=== PATIENT | male | born 1950 | race Caucasian/White ===

== ENCOUNTER 2020-11-21 15:14 | Inpatient (IN) | payer MEDICARE ==
[~2020-11-21] VITALS: Ht 188 cm; Wt 68.1 kg
[~2020-11-21 15:14] MED LIST: ALDACTONE25 MG PO; AMIODARONE HCL200 MG PO; ASPIRIN EC81 MG PO; Apixaban PO; DIGOXIN125 MCG PO; FAMOTIDINE20 MG/2 ML IV; FUROSEMIDE20 MG PO; TOPROL XL25 MG PO; Valsartan/Sacubitril PO
[2020-11-21] MEDS ORDERED: SODIUM CHLORIDE 0.9% 1000ML 1,000 ML IV ONE (16:45)
[2020-11-21] MEDS ORDERED: PANTOPRAZOLE SO40 MG PO (16:51)
[2020-11-21] MEDS ORDERED: METOPROLOL SUCC25 MG PO (16:51)
[2020-11-21] MEDS ORDERED: SERTRALINE HCL50 MG PO (16:51)
[2020-11-21] MEDS ORDERED: ELIQUIS5 MG PO (16:53)
[2020-11-21] MEDS ORDERED: ENTRESTO 24 MG1 EACH PO (16:53)
[2020-11-21] MEDS ORDERED: LEVOTHYROXINE50 MCG PO (16:53)
[2020-11-21] MEDS ORDERED: FUROSEMIDE40 MG PO (16:53)
[2020-11-21] MEDS ORDERED: SODIUM CHLORIDE 0.9% 1000ML 1,000 ML ONE (16:54)
[2020-11-21 16:57] LABS: BASOPHILS # (AUTO) 0.1 (0.0-0.1); BASOPHILS % 0.4 % (0.0-1.0); EOSINOPHILS # (AUTO) 0.1 (0.0-0.4); EOSINOPHILS % 0.2 % (0.0-6.0); HEMATOCRIT 34.8 % (38.2-49.6); HEMOGLOBIN 11.4 g/dL (14.0-18.0); LYMPHOCYTES # (AUTO) 1.6 (1.0-3.2); LYMPHOCYTES % 7.6 % (18.0-39.1); MEAN CORPUSCULAR HEMOGLOBIN 28.6 pg (28-32); MEAN CORPUSCULAR HGB CONC 32.8 g/dL (31-35); MEAN CORPUSCULAR VOLUME 87.4 fL (81-99); MONOCYTES # (AUTO) 1.5 (0.2-0.8); MONOCYTES % 7.2 % (4.4-11.3); NEUTROPHILS # (AUTO) 17.9 (2.1-6.9); NEUTROPHILS % 83.3 % (38.7-80.0); PLATELET COUNT 517 x10e3/uL (140-360); RED BLOOD COUNT 3.98 x10e6/uL (4.3-5.7); RED CELL DISTRIBUTION WIDTH 14.9 % (11.7-14.4)
[2020-11-21 17:17] LABS: ALBUMIN 2.1 g/dL (3.5-5.0); ALBUMIN/GLOBULIN RATIO 0.4 (0.8-2.0); ANION GAP 17.1 mmol/L (8-16); CREATININE, SERUM 1.4 mg/dL (0.72-1.25); POTASSIUM 4.1 mmol/L (3.5-5.1)
[2020-11-21] MEDS ORDERED: CEFEPIME 2 GM in SODIUM CHLORIDE 0.9% 100 ML IV SCH (17:30)
[2020-11-21] MEDS: SODIUM CHLORIDE 0.9% 1000ML 1,000 ML IV SCH (17:40)
[2020-11-21] MEDS: CEFEPIME 1 GM in SODIUM CHLORIDE 0.9% 50ML 50 ML IV SCH (17:43)
[2020-11-21] MEDS ORDERED: CEFEPIME HCL 1 GM VIAL ONE (17:48)
[2020-11-21] MEDS ORDERED: SODIUM CHLORIDE 0.9% 50ML 50 ML ONE (17:48)
[2020-11-21] MEDS ORDERED: SODIUM CHLORIDE FLUSH 10 ML SYR INJ PRN (18:00)
[2020-11-21] MEDS ORDERED: ACETAMINOPHEN 325 MG TAB PO PRN (18:00)
[2020-11-21] MEDS: VANCOMYCIN 1GM/NS 250 ML 250 ML IV SCH (18:23)
[2020-11-21 18:33] LABS: CLARITY,URINE CLEAR (CLEAR); COLOR,URINE AMBER (YELLOW); KETONES,URINE NEGATIVE (NEGATIVE); LEUKOCYTE ESTERASE ,URINE NEGATIVE (NEGATIVE); NITRITE,URINE NEGATIVE (NEGATIVE); PROTEIN,URINE DIPSTICK NEGATIVE (NEGATIVE); URINE UROBILINOGEN 1 mg/dL (0.2 - 1)
[2020-11-21 18:44] LABS: BACTERIA,URINE FEW /HPF
[2020-11-21 22:30] VITALS: BP 99/53
[2020-11-22] VITALS (8 sets, daily range): BP systolic 88–99; BP diastolic 45–64
[2020-11-22] MEDS ORDERED: DIPHENHYDRAMINE HCL 25 MG CAP PO PRN (01:15)
[2020-11-22] MEDS ORDERED: POTASSIUM CHLORIDE 20 MEQ TAB CR PO PRN (01:15)
[2020-11-22] MEDS ORDERED: LIDOCAINE 4% PATCH TP PRN (01:15)
[2020-11-22] MEDS ORDERED: HYDRALAZINE HCL 20 MG/ML VIAL IV PRN (01:15)
[2020-11-22] MEDS ORDERED: HYDROCODONE/APAP 5MG-325MG TAB PO PRN (01:15)
[2020-11-22] MEDS ORDERED: ONDANSETRON HCL INJ 2MG/ML 2ML 2 MG/ML VIAL IV PRN (01:15)
[2020-11-22] MEDS ORDERED: DEXTROSE 50% SYRINGE 50 ML IV PRN (01:15)
[2020-11-22] MEDS ORDERED: DOCUSATE SODIUM 100 MG CAP PO PRN (01:15)
[2020-11-22] MEDS: CEFEPIME 1 GM in SODIUM CHLORIDE 0.9% 50ML 50 ML IV SCH ×3 (01:30→16:52)
[2020-11-22] MEDS: SODIUM CHLORIDE 0.9% 1000ML 1,000 ML IV SCH (04:25)
[2020-11-22] MEDS: VANCOMYCIN 1GM/NS 250 ML 250 ML IV SCH ×2 (06:21→18:42)
[2020-11-22 06:31] LABS: BASOPHILS # (AUTO) 0.1 (0.0-0.1); BASOPHILS % 0.5 % (0.0-1.0); EOSINOPHILS # (AUTO) 0.1 (0.0-0.4); EOSINOPHILS % 0.3 % (0.0-6.0); HEMATOCRIT 35.7 % (38.2-49.6); HEMOGLOBIN 11.9 g/dL (14.0-18.0); LYMPHOCYTES # (AUTO) 1.3 (1.0-3.2); LYMPHOCYTES % 7.7 % (18.0-39.1); MEAN CORPUSCULAR HEMOGLOBIN 30.1 pg (28-32); MEAN CORPUSCULAR HGB CONC 33.3 g/dL (31-35); MEAN CORPUSCULAR VOLUME 90.4 fL (81-99); MONOCYTES # (AUTO) 1.2 (0.2-0.8); MONOCYTES % 6.9 % (4.4-11.3); NEUTROPHILS # (AUTO) 14.4 (2.1-6.9); NEUTROPHILS % 83.1 % (38.7-80.0); PLATELET COUNT 278 x10e3/uL (140-360); RED BLOOD COUNT 3.95 x10e6/uL (4.3-5.7); RED CELL DISTRIBUTION WIDTH 15.4 % (11.7-14.4)
[2020-11-22 06:53] LABS: ALANINE AMINOTRANSFERASE 10 IU/L (0-55); ALBUMIN 1.6 g/dL (3.5-5.0); ALBUMIN/GLOBULIN RATIO 0.4 (0.8-2.0); ALKALINE PHOSPHATASE 109 IU/L (40-150); ANION GAP 13.9 mmol/L (8-16); BLOOD UREA NITROGEN 15 mg/dL (7-26); BUN/CREATININE RATIO 16 (6-25); CALCIUM 7.4 mg/dL (8.4-10.2); CARBON DIOXIDE 20 mmol/L (22-29); CHLORIDE 103 mmol/L (98-107); CREATININE, SERUM 0.93 mg/dL (0.72-1.25); EST GLOMERULAR FILTRATION RATE > 60 ML/MIN (60-); GLUCOSE 76 mg/dL (74-118); POTASSIUM 3.9 mmol/L (3.5-5.1); SODIUM 133 mmol/L (136-145)
[2020-11-22] MEDS: PANTOPRAZOLE SOD 40 MG TABEC PO SCH (09:15)
[2020-11-22] MEDS: APIXABAN 5 MG TABLET PO SCH (16:52)
[2020-11-22] MEDS: AMIODARONE HCL 200 MG TAB PO SCH (16:52)
[2020-11-22] MEDS ORDERED: ENOXAPARIN SOD INJ 40 MG/0.4 ML SYR SC SCH (17:00)
[2020-11-22] MEDS ORDERED: VALSARTAN/SACUBITRIL 24MG/26MG 1 EA TAB PO SCH (17:00)
[2020-11-22] MEDS: MELATONIN 5 MG TABLET PO PRN (21:05)
[2020-11-23] VITALS (8 sets, daily range): BP systolic 86–107; BP diastolic 46–64
[2020-11-23] MEDS: CEFEPIME 1 GM in SODIUM CHLORIDE 0.9% 50ML 50 ML IV SCH ×3 (02:07→17:27)
[2020-11-23 05:21] LABS: CHOL/HDL RATIO 3.2 (3.9-4.7); MAGNESIUM 1.9 MG/DL (1.3-2.1); PHOSPHORUS 2.8 MG/DL (2.3-4.7)
[2020-11-23] MEDS: VANCOMYCIN 1GM/NS 250 ML 250 ML IV SCH ×2 (05:39→18:28)
[2020-11-23] MEDS: LEVOTHYROXINE SODIUM 50 MCG TAB PO SCH (05:39)
[2020-11-23 05:42] LABS: THYROID STIMULATING HORMONE 32.54 uIU/mL (0.350-4.940)
[2020-11-23] MEDS ORDERED: PANTOPRAZOLE SOD 40 MG TABEC PO SCH (07:30)
[2020-11-23] MEDS: PANTOPRAZOLE SOD 40 MG TABEC PO SCH (09:09)
[2020-11-23] MEDS: FUROSEMIDE 20 MG TAB PO SCH (09:09)
[2020-11-23] MEDS: APIXABAN 5 MG TABLET PO SCH ×2 (09:09→17:27)
[2020-11-23] MEDS: AMIODARONE HCL 200 MG TAB PO SCH (09:09)
[2020-11-23] MEDS: SERTRALINE HCL 50 MG TAB PO SCH (09:10)
[2020-11-23] MEDS: METOPROLOL SUCCINATE 25 MG TAB XL PO SCH (09:10)
[2020-11-23] MEDS: BACITRACIN ZINC 15 GM OINT TOP SCH (09:10)
[2020-11-23] MEDS: BALSAM PERU/CASTOR OIL 60 GM OINT...G. TP SCH (09:11)
[2020-11-23] MEDS ORDERED: LIDOCAINE HCL 1% LOCAL INJ 20 ML VIAL INJ ONE (10:45)
[2020-11-24] VITALS (8 sets, daily range): BP systolic 91–112; BP diastolic 51–67
[2020-11-24] MEDS: CEFEPIME 1 GM in SODIUM CHLORIDE 0.9% 50ML 50 ML IV SCH (02:35)
[2020-11-24 06:13] LABS: BASOPHILS # (AUTO) 0.1 (0.0-0.1); BASOPHILS % 0.9 % (0.0-1.0); EOSINOPHILS # (AUTO) 0.2 (0.0-0.4); EOSINOPHILS % 1.6 % (0.0-6.0); HEMATOCRIT 37.8 % (38.2-49.6); HEMOGLOBIN 11.9 g/dL (14.0-18.0); LYMPHOCYTES # (AUTO) 1.3 (1.0-3.2); LYMPHOCYTES % 11.3 % (18.0-39.1); MEAN CORPUSCULAR HEMOGLOBIN 28.4 pg (28-32); MEAN CORPUSCULAR HGB CONC 31.5 g/dL (31-35); MEAN CORPUSCULAR VOLUME 90.2 fL (81-99); MONOCYTES % 8.4 % (4.4-11.3); NEUTROPHILS # (AUTO) 8.8 (2.1-6.9); NEUTROPHILS % 75.2 % (38.7-80.0); PLATELET COUNT 463 x10e3/uL (140-360); RED BLOOD COUNT 4.19 x10e6/uL (4.3-5.7)
[2020-11-24] MEDS: VANCOMYCIN 1GM/NS 250 ML 250 ML IV SCH ×2 (06:30→19:30)
[2020-11-24 06:42] LABS: ANION GAP 8.3 mmol/L (8-16); BLOOD UREA NITROGEN 11 mg/dL (7-26); BUN/CREATININE RATIO 14 (6-25); CALCIUM 7.2 mg/dL (8.4-10.2); CARBON DIOXIDE 26 mmol/L (22-29); CHLORIDE 103 mmol/L (98-107); CREATININE, SERUM 0.78 mg/dL (0.72-1.25); EST GLOMERULAR FILTRATION RATE > 60 ML/MIN (60-); GLUCOSE 85 mg/dL (74-118); POTASSIUM 3.3 mmol/L (3.5-5.1); SODIUM 134 mmol/L (136-145)
[2020-11-24] MEDS: LEVOTHYROXINE SODIUM 50 MCG TAB PO SCH (06:55)
[2020-11-24] MEDS: FUROSEMIDE 20 MG TAB PO SCH (10:15)
[2020-11-24] MEDS: PANTOPRAZOLE SOD 40 MG TABEC PO SCH (10:15)
[2020-11-24] MEDS: APIXABAN 5 MG TABLET PO SCH ×2 (10:15→17:00)
[2020-11-24] MEDS: BACITRACIN ZINC 15 GM OINT TOP SCH (10:16)
[2020-11-24] MEDS: BALSAM PERU/CASTOR OIL 60 GM OINT...G. TP SCH (10:16)
[2020-11-24] MEDS: METOPROLOL SUCCINATE 25 MG TAB XL PO SCH (10:16)
[2020-11-24] MEDS: SERTRALINE HCL 50 MG TAB PO SCH (10:16)
[2020-11-25] VITALS: BP 104/58
[2020-11-25 04:00] VITALS: BP 106/59
[2020-11-25] MEDS: LEVOTHYROXINE SODIUM 75 MCG TAB PO SCH (06:43)
[2020-11-25] MEDS: PANTOPRAZOLE SOD 40 MG TABEC PO SCH (07:30)
[2020-11-25 09:00] VITALS: BP 106/59
[2020-11-25] MEDS: APIXABAN 5 MG TABLET PO SCH ×2 (09:14→17:08)
[2020-11-25] MEDS: FUROSEMIDE 20 MG TAB PO SCH (09:14)
[2020-11-25] MEDS: METOPROLOL SUCCINATE 25 MG TAB XL PO SCH (09:16)
[2020-11-25] MEDS: BALSAM PERU/CASTOR OIL 60 GM OINT...G. TP SCH (09:16)
[2020-11-25] MEDS: SERTRALINE HCL 50 MG TAB PO SCH (09:16)
[2020-11-25] MEDS: BACITRACIN ZINC 15 GM OINT TOP SCH (09:16)
[2020-11-25 13:03] VITALS: BP 120/60
[2020-11-25] MEDS: VANCOMYCIN 1GM/NS 250 ML 250 ML IV SCH (17:08)
[2020-11-25 17:15] VITALS: BP 115/77
[2020-11-25 20:00] VITALS: BP 104/62
[2020-11-26] VITALS (8 sets, daily range): BP systolic 91–109; BP diastolic 52–61
[2020-11-26 05:16] LABS: BASOPHILS # (AUTO) 0.1 (0.0-0.1); BASOPHILS % 0.7 % (0.0-1.0); EOSINOPHILS # (AUTO) 0.3 (0.0-0.4); EOSINOPHILS % 1.8 % (0.0-6.0); HEMATOCRIT 35.9 % (38.2-49.6); HEMOGLOBIN 11.7 g/dL (14.0-18.0); LYMPHOCYTES # (AUTO) 1.2 (1.0-3.2); LYMPHOCYTES % 7.7 % (18.0-39.1); MEAN CORPUSCULAR HEMOGLOBIN 28.1 pg (28-32); MEAN CORPUSCULAR HGB CONC 32.6 g/dL (31-35); MONOCYTES # (AUTO) 1.3 (0.2-0.8); MONOCYTES % 8.1 % (4.4-11.3); NEUTROPHILS # (AUTO) 12.6 (2.1-6.9); NEUTROPHILS % 79.3 % (38.7-80.0); PLATELET COUNT 472 x10e3/uL (140-360); RED BLOOD COUNT 4.17 x10e6/uL (4.3-5.7); RED CELL DISTRIBUTION WIDTH 14.6 % (11.7-14.4)
[2020-11-26 05:17] LABS: MEAN CORPUSCULAR VOLUME 86.1 fL (81-99)
[2020-11-26 05:39] LABS: ANION GAP 8.7 mmol/L (8-16); BLOOD UREA NITROGEN 9 mg/dL (7-26); BUN/CREATININE RATIO 14 (6-25); CALCIUM 7.3 mg/dL (8.4-10.2); CARBON DIOXIDE 29 mmol/L (22-29); CHLORIDE 98 mmol/L (98-107); CREATININE, SERUM 0.66 mg/dL (0.72-1.25); EST GLOMERULAR FILTRATION RATE > 60 ML/MIN (60-); GLUCOSE 93 mg/dL (74-118); POTASSIUM 3.7 mmol/L (3.5-5.1); SODIUM 132 mmol/L (136-145)
[2020-11-26] MEDS: LEVOTHYROXINE SODIUM 75 MCG TAB PO SCH (06:35)
[2020-11-26] MEDS ORDERED: ONDANSETRON HCL 4 MG ORAL DISINTEGRATING TAB PO PRN (08:15)
[2020-11-26] MEDS: APIXABAN 5 MG TABLET PO SCH ×2 (08:26→17:55)
[2020-11-26] MEDS: METOPROLOL SUCCINATE 25 MG TAB XL PO SCH (08:26)
[2020-11-26] MEDS: PANTOPRAZOLE SOD 40 MG TABEC PO SCH (08:26)
[2020-11-26] MEDS: BACITRACIN ZINC 15 GM OINT TOP SCH (08:26)
[2020-11-26] MEDS: SERTRALINE HCL 50 MG TAB PO SCH (08:26)
[2020-11-26] MEDS: FUROSEMIDE 20 MG TAB PO SCH (08:26)
[2020-11-26] MEDS: BALSAM PERU/CASTOR OIL 60 GM OINT...G. TP SCH (08:27)
[2020-11-26] MEDS: ACETAMINOPHEN 325 MG TAB PO PRN (08:28)
[2020-11-26] MEDS: VANCOMYCIN 1GM/NS 250 ML 250 ML IV SCH (19:02)
[2020-11-27] VITALS (7 sets, daily range): BP systolic 93–106; BP diastolic 52–58
[2020-11-27] MEDS: LEVOTHYROXINE SODIUM 75 MCG TAB PO SCH (05:43)
[2020-11-27] MEDS: BALSAM PERU/CASTOR OIL 60 GM OINT...G. TP SCH (09:00)
[2020-11-27] MEDS: SERTRALINE HCL 50 MG TAB PO SCH (09:20)
[2020-11-27] MEDS: FUROSEMIDE 20 MG TAB PO SCH (09:20)
[2020-11-27] MEDS: PANTOPRAZOLE SOD 40 MG TABEC PO SCH (09:20)
[2020-11-27] MEDS: METOPROLOL SUCCINATE 25 MG TAB XL PO SCH (09:20)
[2020-11-27] MEDS: ENOXAPARIN SOD INJ 40 MG/0.4 ML SYR SC SCH (10:22)
[2020-11-27] MEDS: Vancomycin IV 1 GM in SODIUM CHLORIDE 0.9% 250ML 250 ML IV SCH (15:15)
[2020-11-27 15:25] LABS: ABG PH 7.46 (7.35-7.45)
[2020-11-27 15:26] LABS: ABG HCO3 31 mmol/L (22-26); ABG PCO2 43 mmHg (35-45); ABG PO2 80 mmHg (80-105); ABG TCO2 32
[2020-11-27 15:57] LABS: INR 1.49; PROTHROMBIN TIME 18.7 seconds (11.9-14.5)
[2020-11-27] MEDS: PIPERACILLIN/TAZOBACTAM 4.5 GM in SODIUM CHLORIDE 0.9% 100 ML IV SCH (19:03)
[2020-11-28] VITALS (15 sets, daily range): BP systolic 67–119; BP diastolic 40–84
[2020-11-28] MEDS: SODIUM CHLORIDE 0.9% 1000ML 1,000 ML IV SCH ×2 (00:56→10:00)
[2020-11-28] MEDS: PIPERACILLIN/TAZOBACTAM 4.5 GM in SODIUM CHLORIDE 0.9% 100 ML IV SCH ×3 (01:04→17:30)
[2020-11-28] MEDS: LEVOTHYROXINE SODIUM 75 MCG TAB PO SCH (05:07)
[2020-11-28] MEDS: PANTOPRAZOLE SOD 40 MG TABEC PO SCH (08:41)
[2020-11-28] MEDS: ENOXAPARIN SOD INJ 40 MG/0.4 ML SYR SC SCH (09:00)
[2020-11-28] MEDS: FUROSEMIDE 20 MG TAB PO SCH (09:42)
[2020-11-28] MEDS: SERTRALINE HCL 50 MG TAB PO SCH (09:43)
[2020-11-28] MEDS: METOPROLOL SUCCINATE 25 MG TAB XL PO SCH (09:43)
[2020-11-28] MEDS: BALSAM PERU/CASTOR OIL 60 GM OINT...G. TP SCH (09:43)
[2020-11-28] MEDS: Vancomycin IV 1 GM in SODIUM CHLORIDE 0.9% 250ML 250 ML IV SCH (12:42)
[2020-11-28 16:00] LABS: BODY FLUID TYPE PLEURAL
[2020-11-28] MEDS ORDERED: SODIUM CHLORIDE 0.9% 1000ML 1,000 ML IV ONE (16:30)
[2020-11-28 16:35] LABS: BASOPHILS # (AUTO) 0.1 (0.0-0.1); BASOPHILS % 0.3 % (0.0-1.0); EOSINOPHILS % 0.1 % (0.0-6.0); HEMATOCRIT 33.1 % (38.2-49.6); HEMOGLOBIN 10.8 g/dL (14.0-18.0); LYMPHOCYTES # (AUTO) 0.8 (1.0-3.2); MEAN CORPUSCULAR HEMOGLOBIN 28.3 pg (28-32); MEAN CORPUSCULAR HGB CONC 32.6 g/dL (31-35); MEAN CORPUSCULAR VOLUME 86.6 fL (81-99); MONOCYTES # (AUTO) 1.4 (0.2-0.8); MONOCYTES % 5.2 % (4.4-11.3); NEUTROPHILS # (AUTO) 23.9 (2.1-6.9); NEUTROPHILS % 89.3 % (38.7-80.0); PLATELET COUNT 435 x10e3/uL (140-360); RED BLOOD COUNT 3.82 x10e6/uL (4.3-5.7); RED CELL DISTRIBUTION WIDTH 14.9 % (11.7-14.4)
[2020-11-28 16:38] LABS: BODY FLUID APPEARANCE TURBID; BODY FLUID COLOR STRAW
[2020-11-28 16:50] LABS: RBC,BODY FLUID 2000 cells/uL; WBC,BODY FLUID 1336 cells/uL
[2020-11-28 17:25] LABS: ABG HCO3 29 mmol/L (22-26); ABG PCO2 48 mmHg (35-45); ABG PH 7.39 (7.35-7.45); ABG PO2 177 mmHg (80-105); ABG TCO2 31
[2020-11-28] MEDS ORDERED: MIDODRINE HCL 5 MG TABLET PO ONE (18:15)
[2020-11-28 19:21] LABS: LYMPHOCYTES,BODY FLUID 49 %; MONO/MACROPHG,BODY FLUID 27 %; NEUTROPHILS,BODY FLUID 23 %; OTHER CELLS,BODY FLUID 1 %
[2020-11-28] MEDS ORDERED: FUROSEMIDE INJ 10 MG/ML 2 ML VIAL IV ONE (20:30)
[2020-11-28] MEDS ORDERED: NOREPINEPHRINE 8 MG/D5W 250 ML 250 ML ONE (22:19)
[2020-11-28] MEDS: NOREPINEPHRINE INJ 4MG/4ML 8 MG in DEXTROSE 5% 250ML 250 ML IV PRN (22:27)
[2020-11-29] VITALS (59 sets, daily range): BP systolic 50–118; BP diastolic 13–84
[2020-11-29] MEDS ORDERED: SODIUM CHLORIDE 0.9% 100 ML 100 ML ONE (00:39)
[2020-11-29] MEDS: PIPERACILLIN/TAZOBACTAM 4.5 GM in SODIUM CHLORIDE 0.9% 100 ML IV SCH ×2 (01:00→09:00)
[2020-11-29 05:14] LABS: BASOPHILS # (AUTO) 0.2 (0.0-0.1); BASOPHILS % 0.4 % (0.0-1.0); HEMATOCRIT 38.5 % (38.2-49.6); HEMOGLOBIN 12.5 g/dL (14.0-18.0); LYMPHOCYTES # (AUTO) 1.5 (1.0-3.2); LYMPHOCYTES % 3.8 % (18.0-39.1); MEAN CORPUSCULAR HEMOGLOBIN 28.4 pg (28-32); MEAN CORPUSCULAR HGB CONC 32.5 g/dL (31-35); MEAN CORPUSCULAR VOLUME 87.5 fL (81-99); MONOCYTES # (AUTO) 1.9 (0.2-0.8); MONOCYTES % 4.7 % (4.4-11.3); NEUTROPHILS # (AUTO) 34.6 (2.1-6.9); NEUTROPHILS % 87.8 % (38.7-80.0); PLATELET COUNT 663 x10e3/uL (140-360); RED CELL DISTRIBUTION WIDTH 14.9 % (11.7-14.4)
[2020-11-29 05:37] LABS: BLOOD UREA NITROGEN 17 mg/dL (7-26); BUN/CREATININE RATIO 18 (6-25); CALCIUM 7.9 mg/dL (8.4-10.2); CARBON DIOXIDE 26 mmol/L (22-29); CHLORIDE 100 mmol/L (98-107); CREATININE, SERUM 0.92 mg/dL (0.72-1.25); EST GLOMERULAR FILTRATION RATE > 60 ML/MIN (60-); GLUCOSE 148 mg/dL (74-118); SODIUM 137 mmol/L (136-145)
[2020-11-29] MEDS ORDERED: NOREPINEPHRINE 8 MG/D5W 250 ML 250 ML ONE (05:50)
[2020-11-29] MEDS: LEVOTHYROXINE SODIUM 75 MCG TAB PO SCH (06:00)
[2020-11-29] MEDS: PANTOPRAZOLE SOD 40 MG TABEC PO SCH (07:30)
[2020-11-29 07:59] LABS: LYMPHOCYTES % (MANUAL) 5 % (19-48); MONOCYTES % (MANUAL) 2 % (3.4-9.0); MYELOCYTES % (MANUAL) 1 % (0-0); NEUTROPHILS % (MANUAL) 92 % (40-74); PLATELET ESTIMATE MODERATELY INCREASED; RBC MORPHOLOGY COMMENT NORMAL
[2020-11-29 08:00] LABS: PLATELET MORPHOLOGY COMMENT FEW EDTA CLUMPING
[2020-11-29] MEDS: MIDODRINE HCL 5 MG TABLET PO SCH ×3 (08:00→16:00)
[2020-11-29 08:01] LABS: GIANT PLATELETS FEW; LARGE PLATELETS FEW
[2020-11-29] MEDS: NOREPINEPHRINE INJ 4MG/4ML 8 MG in DEXTROSE 5% 250ML 250 ML IV PRN ×2 (08:35→22:12)
[2020-11-29] MEDS: SERTRALINE HCL 50 MG TAB PO SCH (08:56)
[2020-11-29] MEDS: METOPROLOL SUCCINATE 25 MG TAB XL PO SCH (08:56)
[2020-11-29] MEDS: FUROSEMIDE 20 MG TAB PO SCH (08:56)
[2020-11-29] MEDS ORDERED: FUROSEMIDE INJ 10 MG/ML 2 ML VIAL IV ONE ×2 (09:00→14:15)
[2020-11-29 09:10] LABS: ABG HCO3 30 mmol/L (22-26); ABG PCO2 52 mmHg (35-45); ABG PH 7.37 (7.35-7.45); ABG PO2 214 mmHg (80-105); ABG TCO2 31
[2020-11-29] MEDS: BALSAM PERU/CASTOR OIL 60 GM OINT...G. TP SCH (09:46)
[2020-11-29] MEDS ORDERED: ASPIRIN 81 MG CHEW TAB PO ONE (10:15)
[2020-11-29 10:59] LABS: IRON 12 ug/dL (65-175); TRANSFERRIN < 70 mg/dL (174-364)
[2020-11-29] MEDS: ALBUTEROL SULF 0.083% NEB SOLN 3 ML NEB NEB SCH ×3 (11:20→18:50)
[2020-11-29 11:38] LABS: CREATINE KINASE MB 4.5 ng/mL (0-5.0)
[2020-11-29 12:16] LABS: ALBUMIN 1.5 g/dL (3.5-5.0); BILIRUBIN,DIRECT 0.4 mg/dL (0.0-0.5)
[2020-11-29] MEDS: CEFEPIME 1 GM in SODIUM CHLORIDE 0.9% 50ML 50 ML IV SCH ×2 (13:09→20:31)
[2020-11-29] MEDS: Vancomycin IV 1 GM in SODIUM CHLORIDE 0.9% 250ML 250 ML IV SCH (13:09)
[2020-11-29] MEDS ORDERED: DIATRIZOATE MEGL/DIATRIZOA SOD 30 ML BTL PO ONE (13:37)
[2020-11-29] MEDS ORDERED: IOPAMIDOL 370 MG/ML 200 ML INFUS..BTL INJ ONE (13:37)
[2020-11-29] MEDS ORDERED: SODIUM CHLORIDE 0.9% 50ML 50 ML ONE (13:37)
[2020-11-29] MEDS: METRONIDAZOLE 500MG/NS 100ML 100 ML IV SCH ×2 (14:08→21:19)
[2020-11-29] MEDS ORDERED: CENTRAL TPN FORMULA 1 BAG IV SCH (20:00)
[2020-11-30] VITALS (25 sets, daily range): BP systolic 80–109; BP diastolic 52–76
[2020-11-30] MEDS ORDERED: DEXMEDETOMIDINE 200MCG/NS 50ML 50 ML IV ONE (02:20)
[2020-11-30] MEDS: DEXMEDETOMIDINE 200MCG/NS 50ML 50 ML IV SCH ×3 (02:30→07:09)
[2020-11-30] MEDS: ALBUTEROL SULF 0.083% NEB SOLN 3 ML NEB NEB SCH ×4 (02:50→19:15)
[2020-11-30] MEDS: CEFEPIME 1 GM in SODIUM CHLORIDE 0.9% 50ML 50 ML IV SCH ×3 (05:41→22:07)
[2020-11-30 05:55] LABS: BASOPHILS # (AUTO) 0.1 (0.0-0.1); BASOPHILS % 0.3 % (0.0-1.0); LYMPHOCYTES # (AUTO) 1.4 (1.0-3.2); LYMPHOCYTES % 4.2 % (18.0-39.1); MEAN CORPUSCULAR HGB CONC 32.4 g/dL (31-35); MEAN CORPUSCULAR VOLUME 86.2 fL (81-99); MONOCYTES % 3.2 % (4.4-11.3); NEUTROPHILS # (AUTO) 28.9 (2.1-6.9); PLATELET COUNT 554 x10e3/uL (140-360); RED BLOOD COUNT 4.29 x10e6/uL (4.3-5.7); RED CELL DISTRIBUTION WIDTH 14.6 % (11.7-14.4)
[2020-11-30] MEDS: LEVOTHYROXINE SODIUM 75 MCG TAB PO SCH (06:00)
[2020-11-30 06:18] LABS: ALANINE AMINOTRANSFERASE 10 IU/L (0-55); ALBUMIN 1.2 g/dL (3.5-5.0); ALBUMIN/GLOBULIN RATIO 0.3 (0.8-2.0); ALKALINE PHOSPHATASE 103 IU/L (40-150); ANION GAP 12.5 mmol/L (8-16); BLOOD UREA NITROGEN 22 mg/dL (7-26); BUN/CREATININE RATIO 27 (6-25); CALCIUM 7.6 mg/dL (8.4-10.2); CARBON DIOXIDE 29 mmol/L (22-29); CHLORIDE 99 mmol/L (98-107); CREATININE, SERUM 0.83 mg/dL (0.72-1.25); EST GLOMERULAR FILTRATION RATE > 60 ML/MIN (60-); GLUCOSE 294 mg/dL (74-118); POTASSIUM 3.5 mmol/L (3.5-5.1); SODIUM 137 mmol/L (136-145)
[2020-11-30] MEDS: NOREPINEPHRINE INJ 4MG/4ML 8 MG in DEXTROSE 5% 250ML 250 ML IV PRN (06:20)
[2020-11-30] MEDS ORDERED: NOREPINEPHRINE 8 MG/D5W 250 ML 250 ML ONE (06:23)
[2020-11-30] MEDS: ALBUTEROL/IPRATROPIUM 3 ML NEB NEB PRN ×2 (06:30→15:00)
[2020-11-30] MEDS: METRONIDAZOLE 500MG/NS 100ML 100 ML IV SCH ×3 (06:35→22:07)
[2020-11-30 06:59] LABS: ABG HCO3 30 mmol/L (22-26); ABG PCO2 48 mmHg (35-45); ABG PH 7.41 (7.35-7.45); ABG PO2 77 mmHg (80-105); ABG TCO2 32
[2020-11-30] MEDS: MIDODRINE HCL 5 MG TABLET PO SCH ×3 (08:00→15:10)
[2020-11-30 08:28] LABS: LYMPHOCYTES % (MANUAL) 3 % (19-48); MONOCYTES % (MANUAL) 2 % (3.4-9.0); NEUTROPHILS % (MANUAL) 95 % (40-74)
[2020-11-30 08:29] LABS: PLATELET ESTIMATE MODERATELY INCREASED; RBC MORPHOLOGY COMMENT NORMAL
[2020-11-30 08:30] LABS: GIANT PLATELETS FEW; PLATELET CLUMPS FEW; PLATELET MORPHOLOGY COMMENT FEW LARGE
[2020-11-30] MEDS ORDERED: FENTANYL 2000MCG/NS 250 250 ML ONE (08:38)
[2020-11-30] MEDS: FENTANYL 2000MCG/NS 250 250 ML IV SCH ×2 (08:45→21:16)
[2020-11-30] MEDS: SERTRALINE HCL 50 MG TAB PO SCH (09:00)
[2020-11-30] MEDS: METOPROLOL SUCCINATE 25 MG TAB XL PO SCH (09:00)
[2020-11-30] MEDS: FUROSEMIDE 20 MG TAB PO SCH (09:00)
[2020-11-30] MEDS: VASOPRESSIN 60 UNIT in DEXTROSE 5% 50ML 57 ML IV SCH ×2 (09:10→21:14)
[2020-11-30] MEDS: BALSAM PERU/CASTOR OIL 60 GM OINT...G. TP SCH (09:29)
[2020-11-30] MEDS ORDERED: SODIUM CHLORIDE 0.9% 1000ML 2,000 ML ONE (09:34)
[2020-11-30] MEDS ORDERED: SODIUM CHLORIDE 0.9% 1000ML 1,000 ML IV SCH (09:45)
[2020-11-30 10:33] LABS: ABG HCO3 28 mmol/L (22-26); ABG PCO2 53 mmHg (35-45); ABG PH 7.32 (7.35-7.45); ABG PO2 113 mmHg (80-105); ABG TCO2 29
[2020-11-30] MEDS ORDERED: VECURONIUM BROMIDE FOR INJ 20 MG VIAL IV STA (14:00)
[2020-11-30] MEDS ORDERED: VECURONIUM BROMIDE FOR INJ 20 MG VIAL ONE (14:09)
[2020-11-30] MEDS: MIDAZOLAM HCL 5MG/ML 10ML VIAL 100 ML IV PRN ×2 (14:25→22:44)
[2020-11-30] MEDS: Vancomycin IV 1 GM in SODIUM CHLORIDE 0.9% 250ML 250 ML IV SCH (14:30)
[2020-11-30] MEDS ORDERED: DIGOXIN INJ 0.25 MG/ML 2 ML AMP IV ONE (16:15)
[2020-11-30 17:17] LABS: ABG HCO3 28 mmol/L (22-26); ABG PCO2 64 mmHg (35-45); ABG PH 7.25 (7.35-7.45); ABG PO2 134 mmHg (80-105); ABG TCO2 30
[2020-11-30] MEDS ORDERED: ETOMIDATE 2 MG/ML 10 ML INJ IV ONE (18:14)
[2020-11-30] MEDS ORDERED: CENTRAL TPN FORMULA 1 BAG IV SCH (20:00)
[2020-11-30] MEDS: AMIODARONE HCL 200 MG TAB PO SCH (22:43)
[2020-12-01] VITALS (26 sets, daily range): BP systolic 81–110; BP diastolic 51–86
[2020-12-01] MEDS: ALBUTEROL SULF 0.083% NEB SOLN 3 ML NEB NEB SCH ×4 (00:15→19:12)
[2020-12-01 04:47] LABS: BASOPHILS # (AUTO) 0.2 (0.0-0.1); BASOPHILS % 0.5 % (0.0-1.0); EOSINOPHILS # (AUTO) 0.2 (0.0-0.4); EOSINOPHILS % 0.5 % (0.0-6.0); HEMATOCRIT 35.8 % (38.2-49.6); HEMOGLOBIN 11.2 g/dL (14.0-18.0); LYMPHOCYTES # (AUTO) 1.3 (1.0-3.2); LYMPHOCYTES % 4.2 % (18.0-39.1); MEAN CORPUSCULAR HEMOGLOBIN 27.9 pg (28-32); MEAN CORPUSCULAR HGB CONC 31.3 g/dL (31-35); MEAN CORPUSCULAR VOLUME 89.1 fL (81-99); MONOCYTES # (AUTO) 0.9 (0.2-0.8); MONOCYTES % 2.9 % (4.4-11.3); NEUTROPHILS % 89.4 % (38.7-80.0); PLATELET COUNT 338 x10e3/uL (140-360); RED BLOOD COUNT 4.02 x10e6/uL (4.3-5.7); RED CELL DISTRIBUTION WIDTH 15.2 % (11.7-14.4)
[2020-12-01 05:06] LABS: ALANINE AMINOTRANSFERASE 6 IU/L (0-55); ALBUMIN 1.1 g/dL (3.5-5.0); ALBUMIN/GLOBULIN RATIO 0.2 (0.8-2.0); ALKALINE PHOSPHATASE 87 IU/L (40-150); ANION GAP 9.9 mmol/L (8-16); BLOOD UREA NITROGEN 21 mg/dL (7-26); BUN/CREATININE RATIO 28 (6-25); CALCIUM 7.5 mg/dL (8.4-10.2); CARBON DIOXIDE 26 mmol/L (22-29); CHLORIDE 106 mmol/L (98-107); CREATININE, SERUM 0.74 mg/dL (0.72-1.25); EST GLOMERULAR FILTRATION RATE > 60 ML/MIN (60-); GLUCOSE 263 mg/dL (74-118); POTASSIUM 3.9 mmol/L (3.5-5.1); SODIUM 138 mmol/L (136-145)
[2020-12-01] MEDS: CEFEPIME 1 GM in SODIUM CHLORIDE 0.9% 50ML 50 ML IV SCH ×3 (05:35→21:40)
[2020-12-01] MEDS: METRONIDAZOLE 500MG/NS 100ML 100 ML IV SCH ×3 (05:35→22:00)
[2020-12-01] MEDS: LEVOTHYROXINE SODIUM 75 MCG TAB PO SCH (05:35)
[2020-12-01] MEDS: CISATRACURIUM BESYLATE 100 MG in SODIUM CHLORIDE 0.9% 100 ML 50 ML IV PRN (07:38)
[2020-12-01] MEDS: METOPROLOL SUCCINATE 25 MG TAB XL PO SCH (08:24)
[2020-12-01] MEDS: SERTRALINE HCL 50 MG TAB PO SCH (08:25)
[2020-12-01] MEDS ORDERED: DEXTROSE 50% SYRINGE 50 ML IV PRN (09:15)
[2020-12-01] MEDS: AMIODARONE HCL 200 MG TAB PO SCH ×2 (09:25→18:13)
[2020-12-01] MEDS: FUROSEMIDE 20 MG TAB PO SCH (09:25)
[2020-12-01] MEDS: BALSAM PERU/CASTOR OIL 60 GM OINT...G. TP SCH (09:25)
[2020-12-01 09:31] LABS: BAND NEUTROPHILS % (MANUAL) 2 %; LYMPHOCYTES % (MANUAL) 2 % (19-48); MONOCYTES % (MANUAL) 4 % (3.4-9.0); MYELOCYTES % (MANUAL) 1 % (0-0); NEUTROPHILS % (MANUAL) 91 % (40-74); PLATELET ESTIMATE ADEQUATE; PLATELET MORPHOLOGY COMMENT NORMAL; RBC MORPHOLOGY COMMENT NORMAL
[2020-12-01] MEDS: NOREPINEPHRINE 8 MG/D5W 250 ML 250 ML IV PRN (09:33)
[2020-12-01] MEDS: MIDAZOLAM HCL 5MG/ML 10ML VIAL 100 ML IV PRN ×2 (09:35→20:37)
[2020-12-01 10:29] LABS: IRON 8 ug/dL (65-175); TRANSFERRIN < 70 mg/dL (174-364)
[2020-12-01] MEDS: INSULIN LISPRO 100 UNIT/1 ML 3ML VIAL SQ SCH ×3 (12:14→21:00)
[2020-12-01] MEDS: Vancomycin IV 1 GM in SODIUM CHLORIDE 0.9% 250ML 250 ML IV SCH (13:45)
[2020-12-01] MEDS: VASOPRESSIN 60 UNIT in DEXTROSE 5% 50ML 57 ML IV SCH (13:49)
[2020-12-01] MEDS ORDERED: IOPAMIDOL 370 MG/ML 200 ML INFUS..BTL INJ ONE (14:28)
[2020-12-01] MEDS ORDERED: SODIUM CHLORIDE 0.9% 50ML 50 ML ONE (14:28)
[2020-12-01] MEDS: IRON SUCROSE 100 MG in SODIUM CHLORIDE 0.9% 100 ML 100 ML IV SCH (18:13)
[2020-12-01] MEDS: ENOXAPARIN INJ 80 MG/0.8 ML SYR SC SCH (21:00)
[2020-12-02 00:10] VITALS: BP 96/75
[2020-12-02 00:11] VITALS: BP 96/75
[2020-12-02] MEDS: ALBUTEROL SULF 0.083% NEB SOLN 3 ML NEB NEB SCH ×4 (01:00→18:49)
[2020-12-02] MEDS: CISATRACURIUM BESYLATE 100 MG in SODIUM CHLORIDE 0.9% 100 ML 50 ML IV PRN ×2 (01:22→18:48)
[2020-12-02] MEDS: VASOPRESSIN 60 UNIT in DEXTROSE 5% 50ML 57 ML IV SCH ×2 (01:23→13:30)
[2020-12-02] MEDS: FENTANYL 2000MCG/NS 250 250 ML IV SCH (01:25)
[2020-12-02] MEDS: CEFEPIME 1 GM in SODIUM CHLORIDE 0.9% 50ML 50 ML IV SCH ×3 (05:00→21:36)
[2020-12-02 05:06] LABS: BASOPHILS # (AUTO) 0.2 (0.0-0.1); BASOPHILS % 0.6 % (0.0-1.0); EOSINOPHILS # (AUTO) 0.3 (0.0-0.4); EOSINOPHILS % 1.3 % (0.0-6.0); HEMATOCRIT 33.2 % (38.2-49.6); HEMOGLOBIN 10.6 g/dL (14.0-18.0); LYMPHOCYTES # (AUTO) 2.2 (1.0-3.2); LYMPHOCYTES % 8.9 % (18.0-39.1); MEAN CORPUSCULAR HEMOGLOBIN 28.5 pg (28-32); MEAN CORPUSCULAR HGB CONC 31.9 g/dL (31-35); MEAN CORPUSCULAR VOLUME 89.2 fL (81-99); MONOCYTES # (AUTO) 0.8 (0.2-0.8); MONOCYTES % 3.3 % (4.4-11.3); NEUTROPHILS # (AUTO) 20.3 (2.1-6.9); NEUTROPHILS % 83.8 % (38.7-80.0); PLATELET COUNT 270 x10e3/uL (140-360); RED BLOOD COUNT 3.72 x10e6/uL (4.3-5.7); RED CELL DISTRIBUTION WIDTH 15.7 % (11.7-14.4)
[2020-12-02 05:26] LABS: ANION GAP 12.4 mmol/L (8-16); BLOOD UREA NITROGEN 25 mg/dL (7-26); BUN/CREATININE RATIO 34 (6-25); CALCIUM 7.6 mg/dL (8.4-10.2); CARBON DIOXIDE 24 mmol/L (22-29); CHLORIDE 104 mmol/L (98-107); CREATININE, SERUM 0.73 mg/dL (0.72-1.25); EST GLOMERULAR FILTRATION RATE > 60 ML/MIN (60-); GLUCOSE 127 mg/dL (74-118); POTASSIUM 4.4 mmol/L (3.5-5.1); SODIUM 136 mmol/L (136-145)
[2020-12-02] MEDS: LEVOTHYROXINE SODIUM 75 MCG TAB PO SCH (06:06)
[2020-12-02] MEDS: METRONIDAZOLE 500MG/NS 100ML 100 ML IV SCH ×3 (06:06→21:42)
[2020-12-02] MEDS: NOREPINEPHRINE 8 MG/D5W 250 ML 250 ML IV PRN ×2 (06:35→14:57)
[2020-12-02] MEDS: MIDAZOLAM HCL 5MG/ML 10ML VIAL 100 ML IV PRN ×3 (06:59→22:07)
[2020-12-02] MEDS ORDERED: SODIUM CHLORIDE 0.9% 50ML 50 ML ONE (07:03)
[2020-12-02] MEDS ORDERED: MIDAZOLAM HCL 5 MG/ML VIAL ONE (07:03)
[2020-12-02] MEDS: INSULIN LISPRO 100 UNIT/1 ML 3ML VIAL SQ SCH ×4 (07:30→21:37)
[2020-12-02] MEDS: METOPROLOL SUCCINATE 25 MG TAB XL PO SCH (07:31)
[2020-12-02] MEDS: FUROSEMIDE 20 MG TAB PO SCH ×2 (07:32→11:33)
[2020-12-02] MEDS: SERTRALINE HCL 50 MG TAB PO SCH (07:32)
[2020-12-02] MEDS: BALSAM PERU/CASTOR OIL 60 GM OINT...G. TP SCH (08:11)
[2020-12-02] MEDS: ENOXAPARIN INJ 80 MG/0.8 ML SYR SC SCH ×2 (08:11→21:36)
[2020-12-02] MEDS: AMIODARONE HCL 200 MG TAB PO SCH ×2 (08:11→17:21)
[2020-12-02] MEDS ORDERED: FUROSEMIDE INJ 10 MG/ML 4 ML VIAL IV ONE (12:00)
[2020-12-02] MEDS: Vancomycin IV 1 GM in SODIUM CHLORIDE 0.9% 250ML 250 ML IV SCH (13:08)
[2020-12-02] MEDS: IRON SUCROSE 100 MG in SODIUM CHLORIDE 0.9% 100 ML 100 ML IV SCH (17:22)
[2020-12-03] MEDS: ALBUTEROL SULF 0.083% NEB SOLN 3 ML NEB NEB SCH ×2 (01:00→07:00)
[2020-12-03] MEDS: CEFEPIME 1 GM in SODIUM CHLORIDE 0.9% 50ML 50 ML IV SCH ×3 (05:40→21:00)
[2020-12-03 05:49] LABS: BASOPHILS # (AUTO) 0.2 (0.0-0.1); BASOPHILS % 0.7 % (0.0-1.0); EOSINOPHILS # (AUTO) 0.8 (0.0-0.4); EOSINOPHILS % 3.7 % (0.0-6.0); HEMATOCRIT 30.7 % (38.2-49.6); HEMOGLOBIN 9.7 g/dL (14.0-18.0); LYMPHOCYTES # (AUTO) 2.3 (1.0-3.2); LYMPHOCYTES % 11.1 % (18.0-39.1); MEAN CORPUSCULAR HEMOGLOBIN 27.7 pg (28-32); MEAN CORPUSCULAR HGB CONC 31.6 g/dL (31-35); MEAN CORPUSCULAR VOLUME 87.7 fL (81-99); MONOCYTES # (AUTO) 0.8 (0.2-0.8); MONOCYTES % 3.9 % (4.4-11.3); NEUTROPHILS % 76.8 % (38.7-80.0); PLATELET COUNT 252 x10e3/uL (140-360); RED CELL DISTRIBUTION WIDTH 15.9 % (11.7-14.4)
[2020-12-03] MEDS: FENTANYL 2000MCG/NS 250 250 ML IV SCH (06:00)
[2020-12-03] MEDS: LEVOTHYROXINE SODIUM 75 MCG TAB PO SCH (06:09)
[2020-12-03] MEDS: METRONIDAZOLE 500MG/NS 100ML 100 ML IV SCH ×3 (06:09→22:00)
[2020-12-03 06:23] LABS: ALANINE AMINOTRANSFERASE 32 IU/L (0-55); ALBUMIN 1.1 g/dL (3.5-5.0); ALBUMIN/GLOBULIN RATIO 0.2 (0.8-2.0); ALKALINE PHOSPHATASE 169 IU/L (40-150); ANION GAP 11.1 mmol/L (8-16); BLOOD UREA NITROGEN 31 mg/dL (7-26); BUN/CREATININE RATIO 39 (6-25); CALCIUM 7.3 mg/dL (8.4-10.2); CARBON DIOXIDE 25 mmol/L (22-29); CHLORIDE 103 mmol/L (98-107); CREATININE, SERUM 0.79 mg/dL (0.72-1.25); EST GLOMERULAR FILTRATION RATE > 60 ML/MIN (60-); GLUCOSE 143 mg/dL (74-118); POTASSIUM 4.1 mmol/L (3.5-5.1); SODIUM 135 mmol/L (136-145)
[2020-12-03] MEDS: INSULIN LISPRO 100 UNIT/1 ML 3ML VIAL SQ SCH ×4 (07:51→21:00)
[2020-12-03] MEDS: MIDAZOLAM HCL 5MG/ML 10ML VIAL 100 ML IV PRN (07:51)
[2020-12-03] MEDS: AMIODARONE HCL 200 MG TAB PO SCH ×2 (07:55→17:00)
[2020-12-03] MEDS: ENOXAPARIN INJ 80 MG/0.8 ML SYR SC SCH ×2 (07:55→21:00)
[2020-12-03] MEDS: BALSAM PERU/CASTOR OIL 60 GM OINT...G. TP SCH (07:55)
[2020-12-03] MEDS: SERTRALINE HCL 50 MG TAB PO SCH (07:55)
[2020-12-03] MEDS: Vancomycin IV 1 GM in SODIUM CHLORIDE 0.9% 250ML 250 ML IV SCH (13:30)
[2020-12-03] MEDS: IRON SUCROSE 100 MG in SODIUM CHLORIDE 0.9% 100 ML 100 ML IV SCH (17:00)
[2020-12-04] VITALS (24 sets, daily range): BP systolic 82–123; BP diastolic 41–88
[2020-12-04] MEDS: CEFEPIME 1 GM in SODIUM CHLORIDE 0.9% 50ML 50 ML IV SCH ×3 (05:00→20:59)
[2020-12-04] MEDS: METRONIDAZOLE 500MG/NS 100ML 100 ML IV SCH ×3 (06:00→22:00)
[2020-12-04] MEDS: LEVOTHYROXINE SODIUM 75 MCG TAB PO SCH (06:00)
[2020-12-04] MEDS: INSULIN LISPRO 100 UNIT/1 ML 3ML VIAL SQ SCH ×3 (07:30→16:30)
[2020-12-04] MEDS: ALBUTEROL SULF 0.083% NEB SOLN 3 ML NEB NEB SCH ×3 (07:35→19:00)
[2020-12-04] MEDS: VASOPRESSIN 60 UNIT in DEXTROSE 5% 50ML 57 ML IV SCH (08:00)
[2020-12-04] MEDS: FENTANYL 2000MCG/NS 250 250 ML IV SCH ×3 (08:30→21:33)
[2020-12-04] MEDS: BALSAM PERU/CASTOR OIL 60 GM OINT...G. TP SCH (09:00)
[2020-12-04] MEDS: AMIODARONE HCL 200 MG TAB PO SCH ×2 (09:00→16:26)
[2020-12-04] MEDS: ENOXAPARIN INJ 80 MG/0.8 ML SYR SC SCH ×2 (09:00→20:59)
[2020-12-04] MEDS: SERTRALINE HCL 50 MG TAB PO SCH (09:00)
[2020-12-04 13:18] LABS: BASOPHILS # (AUTO) 0.1 (0.0-0.1); BASOPHILS % 0.7 % (0.0-1.0); EOSINOPHILS # (AUTO) 0.5 (0.0-0.4); EOSINOPHILS % 3.2 % (0.0-6.0); HEMATOCRIT 27.5 % (38.2-49.6); HEMOGLOBIN 8.7 g/dL (14.0-18.0); LYMPHOCYTES # (AUTO) 1.7 (1.0-3.2); MEAN CORPUSCULAR HEMOGLOBIN 28.2 pg (28-32); MEAN CORPUSCULAR HGB CONC 31.6 g/dL (31-35); MONOCYTES % 5.7 % (4.4-11.3); NEUTROPHILS # (AUTO) 12.2 (2.1-6.9); NEUTROPHILS % 73.7 % (38.7-80.0); PLATELET COUNT 208 x10e3/uL (140-360); RED BLOOD COUNT 3.09 x10e6/uL (4.3-5.7); RED CELL DISTRIBUTION WIDTH 16.3 % (11.7-14.4)
[2020-12-04 13:19] LABS: ANION GAP 9.9 mmol/L (8-16); CALCIUM 7.1 mg/dL (8.4-10.2); CREATININE, SERUM 0.8 mg/dL (0.72-1.25); POTASSIUM 3.9 mmol/L (3.5-5.1)
[2020-12-04] MEDS: Vancomycin IV 1 GM in SODIUM CHLORIDE 0.9% 250ML 250 ML IV SCH (13:30)
[2020-12-04] MEDS: DOBUtamine HCL 500MG/D5W 250ML 250 ML IV SCH (14:00)
[2020-12-04] MEDS ORDERED: ALTEPLASE RECOMBINANT 2 MG/2 ML VIAL ONE (14:11)
[2020-12-04] MEDS ORDERED: ALTEPLASE RECOMBINANT 2 MG/2 ML VIAL IV ONE (14:15)
[2020-12-04 15:57] LABS: ABG HCO3 28 mmol/L (22-26); ABG PCO2 45 mmHg (35-45); ABG PH 7.41 (7.35-7.45); ABG PO2 154 mmHg (80-105); ABG TCO2 30
[2020-12-05] VITALS (24 sets, daily range): BP systolic 80–98; BP diastolic 53–79
[2020-12-05] MEDS: ALBUTEROL SULF 0.083% NEB SOLN 3 ML NEB NEB SCH (01:00)
[2020-12-05] MEDS: VASOPRESSIN 60 UNIT in DEXTROSE 5% 50ML 57 ML IV SCH ×2 (02:23→19:23)
[2020-12-05 05:15] LABS: BASOPHILS # (AUTO) 0.1 (0.0-0.1); BASOPHILS % 0.7 % (0.0-1.0); EOSINOPHILS # (AUTO) 0.5 (0.0-0.4); EOSINOPHILS % 3.2 % (0.0-6.0); HEMATOCRIT 28.1 % (38.2-49.6); LYMPHOCYTES # (AUTO) 1.3 (1.0-3.2); LYMPHOCYTES % 8.8 % (18.0-39.1); MEAN CORPUSCULAR HEMOGLOBIN 27.9 pg (28-32); MONOCYTES # (AUTO) 0.7 (0.2-0.8); MONOCYTES % 4.8 % (4.4-11.3); NEUTROPHILS # (AUTO) 10.9 (2.1-6.9); NEUTROPHILS % 75.6 % (38.7-80.0); PLATELET COUNT 196 x10e3/uL (140-360); RED BLOOD COUNT 3.23 x10e6/uL (4.3-5.7); RED CELL DISTRIBUTION WIDTH 16.2 % (11.7-14.4)
[2020-12-05] MEDS: CEFEPIME 1 GM in SODIUM CHLORIDE 0.9% 50ML 50 ML IV SCH ×3 (05:17→20:42)
[2020-12-05 05:31] LABS: ANION GAP 7.8 mmol/L (8-16); CALCIUM 7.1 mg/dL (8.4-10.2); CREATININE, SERUM 0.66 mg/dL (0.72-1.25); POTASSIUM 3.8 mmol/L (3.5-5.1)
[2020-12-05] MEDS: INSULIN LISPRO 100 UNIT/1 ML 3ML VIAL SQ SCH ×4 (06:00→18:00)
[2020-12-05] MEDS: LEVOTHYROXINE SODIUM 75 MCG TAB PO SCH (06:16)
[2020-12-05] MEDS: METRONIDAZOLE 500MG/NS 100ML 100 ML IV SCH ×3 (06:16→20:42)
[2020-12-05] MEDS: DOBUtamine HCL 500MG/D5W 250ML 250 ML IV SCH (06:25)
[2020-12-05] MEDS: AMIODARONE HCL 200 MG TAB PO SCH ×2 (08:11→16:59)
[2020-12-05] MEDS: ENOXAPARIN INJ 80 MG/0.8 ML SYR SC SCH ×2 (08:12→20:42)
[2020-12-05] MEDS: BALSAM PERU/CASTOR OIL 60 GM OINT...G. TP SCH (08:12)
[2020-12-05] MEDS: SERTRALINE HCL 50 MG TAB PO SCH (08:12)
[2020-12-05] MEDS: NOREPINEPHRINE 8 MG/D5W 250 ML 250 ML IV PRN (08:14)
[2020-12-05] MEDS: MIDAZOLAM HCL 5MG/ML 10ML VIAL 100 ML IV PRN (08:30)
[2020-12-05] MEDS ORDERED: FUROSEMIDE INJ 10 MG/ML 2 ML VIAL IV SCH (09:30)
[2020-12-05] MEDS: LEVALBUTEROL HCL SOLN NEBU 0.63 MG/3 ML NEB INH SCH ×3 (11:45→23:55)
[2020-12-05] MEDS ORDERED: MICAFUNGIN SODIUM 50 MG/50 ML BAG IV ONE (16:45)
[2020-12-05] MEDS: APIXABAN 5 MG TABLET PO SCH (17:00)
[2020-12-05] MEDS ORDERED: MICAFUNGIN SODIUM 100 ML IV ONE (18:00)
[2020-12-05] MEDS: FUROSEMIDE INJ 10 MG/ML 4 ML VIAL IV SCH (18:43)
[2020-12-05] MEDS ORDERED: VASOPRESSIN INJ 20 UNIT/ML VIAL ONE (19:12)
[2020-12-06] VITALS (25 sets, daily range): BP systolic 80–118; BP diastolic 43–76
[2020-12-06] MEDS: DOBUtamine HCL 500MG/D5W 250ML 250 ML IV SCH ×2 (00:38→17:28)
[2020-12-06 04:55] LABS: BASOPHILS # (AUTO) 0.1 (0.0-0.1); BASOPHILS % 0.7 % (0.0-1.0); EOSINOPHILS # (AUTO) 0.4 (0.0-0.4); EOSINOPHILS % 2.8 % (0.0-6.0); HEMATOCRIT 26.7 % (38.2-49.6); HEMOGLOBIN 8.7 g/dL (14.0-18.0); LYMPHOCYTES # (AUTO) 1.3 (1.0-3.2); LYMPHOCYTES % 9.4 % (18.0-39.1); MEAN CORPUSCULAR HEMOGLOBIN 28.1 pg (28-32); MEAN CORPUSCULAR HGB CONC 32.6 g/dL (31-35); MEAN CORPUSCULAR VOLUME 86.1 fL (81-99); MONOCYTES # (AUTO) 0.7 (0.2-0.8); MONOCYTES % 5.4 % (4.4-11.3); NEUTROPHILS # (AUTO) 10.1 (2.1-6.9); NEUTROPHILS % 74.9 % (38.7-80.0); PLATELET COUNT 236 x10e3/uL (140-360); RED CELL DISTRIBUTION WIDTH 16.2 % (11.7-14.4)
[2020-12-06 05:27] LABS: ALBUMIN 1.2 g/dL (3.5-5.0); ALBUMIN/GLOBULIN RATIO 0.3 (0.8-2.0); ANION GAP 7.5 mmol/L (8-16); CALCIUM 7.4 mg/dL (8.4-10.2); CREATININE, SERUM 0.71 mg/dL (0.72-1.25); POTASSIUM 3.5 mmol/L (3.5-5.1)
[2020-12-06] MEDS: INSULIN LISPRO 100 UNIT/1 ML 3ML VIAL SQ SCH ×5 (06:00→23:53)
[2020-12-06] MEDS: LEVALBUTEROL HCL SOLN NEBU 0.63 MG/3 ML NEB INH SCH ×3 (06:15→19:15)
[2020-12-06] MEDS: METRONIDAZOLE 500MG/NS 100ML 100 ML IV SCH ×3 (06:15→20:15)
[2020-12-06] MEDS: FUROSEMIDE INJ 10 MG/ML 4 ML VIAL IV SCH ×2 (06:15→17:47)
[2020-12-06] MEDS: LEVOTHYROXINE SODIUM 75 MCG TAB PO SCH (06:15)
[2020-12-06] MEDS: CEFEPIME 1 GM in SODIUM CHLORIDE 0.9% 50ML 50 ML IV SCH ×3 (06:15→20:15)
[2020-12-06] MEDS: FENTANYL 2000MCG/NS 250 250 ML IV SCH (08:30)
[2020-12-06] MEDS ORDERED: MICAFUNGIN SODIUM 50 MG/50 ML BAG IV SCH (09:00)
[2020-12-06] MEDS: APIXABAN 5 MG TABLET PO SCH ×2 (09:00→17:00)
[2020-12-06] MEDS: SERTRALINE HCL 50 MG TAB PO SCH (09:00)
[2020-12-06] MEDS: ENOXAPARIN INJ 80 MG/0.8 ML SYR SC SCH ×2 (09:35→20:15)
[2020-12-06] MEDS: BALSAM PERU/CASTOR OIL 60 GM OINT...G. TP SCH (09:35)
[2020-12-06] MEDS: AMIODARONE HCL 200 MG TAB PO SCH ×2 (09:35→17:47)
[2020-12-06 11:47] LABS: BAND NEUTROPHILS % (MANUAL) 3 %; LYMPHOCYTES % (MANUAL) 5 % (19-48); MONOCYTES % (MANUAL) 4 % (3.4-9.0); NEUTROPHILS % (MANUAL) 88 % (40-74); NUCLEATED RED BLOOD CELLS 1
[2020-12-06 11:49] LABS: ANISOCYTOSIS 1; HYPOCHROMASIA 1; PLATELET ESTIMATE ADEQUATE; PLATELET MORPHOLOGY COMMENT NORMAL; RBC MORPHOLOGY COMMENT ABNORMAL
[2020-12-06] MEDS: MICAFUNGIN SODIUM 50 ML IV SCH (17:47)
[2020-12-06] MEDS: VASOPRESSIN 60 UNIT in DEXTROSE 5% 50ML 57 ML IV SCH (18:51)
[2020-12-07] VITALS (24 sets, daily range): BP systolic 79–115; BP diastolic 55–94
[2020-12-07] MEDS: LEVALBUTEROL HCL SOLN NEBU 0.63 MG/3 ML NEB INH SCH ×4 (01:10→19:00)
[2020-12-07 04:53] LABS: BASOPHILS # (AUTO) 0.1 (0.0-0.1); BASOPHILS % 0.6 % (0.0-1.0); EOSINOPHILS # (AUTO) 0.3 (0.0-0.4); EOSINOPHILS % 2.6 % (0.0-6.0); HEMATOCRIT 27.1 % (38.2-49.6); HEMOGLOBIN 8.9 g/dL (14.0-18.0); LYMPHOCYTES # (AUTO) 1.1 (1.0-3.2); LYMPHOCYTES % 8.7 % (18.0-39.1); MEAN CORPUSCULAR HEMOGLOBIN 28.5 pg (28-32); MEAN CORPUSCULAR HGB CONC 32.8 g/dL (31-35); MEAN CORPUSCULAR VOLUME 86.9 fL (81-99); MONOCYTES # (AUTO) 0.8 (0.2-0.8); MONOCYTES % 6.6 % (4.4-11.3); NEUTROPHILS # (AUTO) 9.3 (2.1-6.9); NEUTROPHILS % 73.7 % (38.7-80.0); PLATELET COUNT 228 x10e3/uL (140-360); RED BLOOD COUNT 3.12 x10e6/uL (4.3-5.7)
[2020-12-07 05:24] LABS: ANION GAP 8.2 mmol/L (8-16); CALCIUM 7.5 mg/dL (8.4-10.2); CREATININE, SERUM 0.7 mg/dL (0.72-1.25); POTASSIUM 3.2 mmol/L (3.5-5.1)
[2020-12-07] MEDS: INSULIN LISPRO 100 UNIT/1 ML 3ML VIAL SQ SCH ×3 (06:00→18:00)
[2020-12-07] MEDS: CEFEPIME 1 GM in SODIUM CHLORIDE 0.9% 50ML 50 ML IV SCH ×3 (06:10→21:14)
[2020-12-07] MEDS: LEVOTHYROXINE SODIUM 75 MCG TAB PO SCH (06:10)
[2020-12-07] MEDS: FUROSEMIDE INJ 10 MG/ML 4 ML VIAL IV SCH ×3 (06:10→22:28)
[2020-12-07] MEDS: METRONIDAZOLE 500MG/NS 100ML 100 ML IV SCH ×3 (06:10→21:14)
[2020-12-07] MEDS ORDERED: POTASSIUM CHLORIDE 20MEQ/100ML 300 ML IV ONE (06:50)
[2020-12-07] MEDS: FENTANYL 2000MCG/NS 250 250 ML IV SCH (08:30)
[2020-12-07] MEDS: APIXABAN 5 MG TABLET PO SCH ×2 (09:00→17:00)
[2020-12-07] MEDS: SERTRALINE HCL 50 MG TAB PO SCH (10:12)
[2020-12-07] MEDS: BALSAM PERU/CASTOR OIL 60 GM OINT...G. TP SCH (10:12)
[2020-12-07] MEDS: ENOXAPARIN INJ 80 MG/0.8 ML SYR SC SCH ×2 (10:12→21:14)
[2020-12-07] MEDS: AMIODARONE HCL 200 MG TAB PO SCH ×2 (10:12→16:53)
[2020-12-07] MEDS: VASOPRESSIN 60 UNIT in DEXTROSE 5% 50ML 57 ML IV SCH (10:13)
[2020-12-07 11:05] LABS: BAND NEUTROPHILS % (MANUAL) 1 %; EOSINOPHILS % (MANUAL) 2 % (0-7); LYMPHOCYTES % (MANUAL) 12 % (19-48); MONOCYTES % (MANUAL) 8 % (3.4-9.0); NEUTROPHILS % (MANUAL) 77 % (40-74); PLATELET ESTIMATE ADEQUATE; PLATELET MORPHOLOGY COMMENT NORMAL; RBC MORPHOLOGY COMMENT NORMAL
[2020-12-07] MEDS: DOBUtamine HCL 500MG/D5W 250ML 250 ML IV SCH (12:06)
[2020-12-07] MEDS: MICAFUNGIN SODIUM 50 ML IV SCH (16:53)
[2020-12-08] VITALS (25 sets, daily range): BP systolic 87–126; BP diastolic 50–79
[2020-12-08] MEDS: LEVALBUTEROL HCL SOLN NEBU 0.63 MG/3 ML NEB INH SCH ×4 (02:30→19:00)
[2020-12-08 05:18] LABS: BASOPHILS # (AUTO) 0.1 (0.0-0.1); BASOPHILS % 0.6 % (0.0-1.0); EOSINOPHILS # (AUTO) 0.3 (0.0-0.4); EOSINOPHILS % 2.5 % (0.0-6.0); HEMOGLOBIN 9.2 g/dL (14.0-18.0); LYMPHOCYTES % 8.5 % (18.0-39.1); MEAN CORPUSCULAR HEMOGLOBIN 28.2 pg (28-32); MEAN CORPUSCULAR HGB CONC 32.9 g/dL (31-35); MEAN CORPUSCULAR VOLUME 85.9 fL (81-99); MONOCYTES # (AUTO) 0.7 (0.2-0.8); NEUTROPHILS # (AUTO) 8.3 (2.1-6.9); NEUTROPHILS % 73.1 % (38.7-80.0); PLATELET COUNT 260 x10e3/uL (140-360); RED BLOOD COUNT 3.26 x10e6/uL (4.3-5.7); RED CELL DISTRIBUTION WIDTH 18.7 % (11.7-14.4)
[2020-12-08 05:35] LABS: ANION GAP 9.3 mmol/L (8-16); CALCIUM 7.1 mg/dL (8.4-10.2); CREATININE, SERUM 0.71 mg/dL (0.72-1.25); POTASSIUM 3.3 mmol/L (3.5-5.1)
[2020-12-08] MEDS: METRONIDAZOLE 500MG/NS 100ML 100 ML IV SCH ×3 (05:49→22:00)
[2020-12-08] MEDS: LEVOTHYROXINE SODIUM 75 MCG TAB PO SCH (05:49)
[2020-12-08] MEDS: FUROSEMIDE INJ 10 MG/ML 4 ML VIAL IV SCH ×3 (05:49→22:00)
[2020-12-08] MEDS: CEFEPIME 1 GM in SODIUM CHLORIDE 0.9% 50ML 50 ML IV SCH ×3 (05:49→20:57)
[2020-12-08] MEDS: INSULIN LISPRO 100 UNIT/1 ML 3ML VIAL SQ SCH ×4 (05:53→17:05)
[2020-12-08] MEDS: POTASSIUM CHLORIDE 20MEQ/100ML 100 ML IV SCH ×3 (06:59→10:56)
[2020-12-08] MEDS: SERTRALINE HCL 50 MG TAB PO SCH (08:02)
[2020-12-08] MEDS: ENOXAPARIN INJ 80 MG/0.8 ML SYR SC SCH (08:02)
[2020-12-08] MEDS: BALSAM PERU/CASTOR OIL 60 GM OINT...G. TP SCH (08:02)
[2020-12-08] MEDS: AMIODARONE HCL 200 MG TAB PO SCH ×2 (08:02→16:03)
[2020-12-08] MEDS: FENTANYL 2000MCG/NS 250 250 ML IV SCH (08:30)
[2020-12-08] MEDS: APIXABAN 5 MG TABLET PO SCH ×2 (09:00→17:00)
[2020-12-08] MEDS: LEVOTHYROXINE SODIUM 125 MCG TAB PO SCH (10:58)
[2020-12-08 11:58] LABS: FREE THYROXINE INDEX 1.1352 (1.4-3.8); THYROID STIMULATING HORMONE 16.032 uIU/mL (0.350-4.940)
[2020-12-08] MEDS: MICAFUNGIN SODIUM 50 ML IV SCH (16:03)
[2020-12-08 16:18] LABS: ABG PCO2 49 mmHg (35-45); ABG PH 7.45 (7.35-7.45)
[2020-12-08 16:19] LABS: ABG HCO3 34 mmol/L (22-26); ABG PO2 162 mmHg (80-105); ABG TCO2 36
[2020-12-08] MEDS: DOBUtamine HCL 500MG/D5W 250ML 250 ML IV SCH (22:47)
[2020-12-09] VITALS (26 sets, daily range): BP systolic 91–112; BP diastolic 60–86
[2020-12-09] MEDS: DOBUtamine HCL 500MG/D5W 250ML 250 ML IV SCH ×3 (02:00→20:40)
[2020-12-09] MEDS: LEVALBUTEROL HCL SOLN NEBU 0.63 MG/3 ML NEB INH SCH ×4 (03:20→19:10)
[2020-12-09] MEDS: CEFEPIME 1 GM in SODIUM CHLORIDE 0.9% 50ML 50 ML IV SCH (05:20)
[2020-12-09 05:59] LABS: BASOPHILS # (AUTO) 0.1 (0.0-0.1); BASOPHILS % 1.1 % (0.0-1.0); EOSINOPHILS # (AUTO) 0.3 (0.0-0.4); EOSINOPHILS % 2.5 % (0.0-6.0); HEMATOCRIT 29.6 % (38.2-49.6); HEMOGLOBIN 9.6 g/dL (14.0-18.0); LYMPHOCYTES # (AUTO) 0.9 (1.0-3.2); LYMPHOCYTES % 7.5 % (18.0-39.1); MEAN CORPUSCULAR HEMOGLOBIN 28.2 pg (28-32); MEAN CORPUSCULAR HGB CONC 32.4 g/dL (31-35); MEAN CORPUSCULAR VOLUME 86.8 fL (81-99); MONOCYTES # (AUTO) 0.8 (0.2-0.8); MONOCYTES % 7.1 % (4.4-11.3); NEUTROPHILS # (AUTO) 8.3 (2.1-6.9); NEUTROPHILS % 73.4 % (38.7-80.0); PLATELET COUNT 311 x10e3/uL (140-360); RED BLOOD COUNT 3.41 x10e6/uL (4.3-5.7); RED CELL DISTRIBUTION WIDTH 19.8 % (11.7-14.4)
[2020-12-09] MEDS: INSULIN LISPRO 100 UNIT/1 ML 3ML VIAL SQ SCH ×4 (06:00→17:46)
[2020-12-09] MEDS: LEVOTHYROXINE SODIUM 125 MCG TAB PO SCH (06:04)
[2020-12-09] MEDS: FUROSEMIDE INJ 10 MG/ML 4 ML VIAL IV SCH ×3 (06:04→20:50)
[2020-12-09] MEDS: METRONIDAZOLE 500MG/NS 100ML 100 ML IV SCH (06:04)
[2020-12-09 06:13] LABS: INR 1.13; PROTHROMBIN TIME 15.2 seconds (11.9-14.5)
[2020-12-09 06:25] LABS: ALBUMIN 1.3 g/dL (3.5-5.0); ALBUMIN/GLOBULIN RATIO 0.3 (0.8-2.0); ANION GAP 10.6 mmol/L (8-16); CALCIUM 7.3 mg/dL (8.4-10.2); CREATININE, SERUM 0.75 mg/dL (0.72-1.25); POTASSIUM 3.6 mmol/L (3.5-5.1)
[2020-12-09] MEDS: BALSAM PERU/CASTOR OIL 60 GM OINT...G. TP SCH (08:29)
[2020-12-09] MEDS: SERTRALINE HCL 50 MG TAB PO SCH (08:29)
[2020-12-09] MEDS: AMIODARONE HCL 200 MG TAB PO SCH ×2 (08:29→16:50)
[2020-12-09] MEDS: APIXABAN 5 MG TABLET PO SCH ×2 (09:00→17:00)
[2020-12-09] MEDS ORDERED: CHLOROTHIAZIDE SODIUM 500 MG VIAL IV ONE (11:30)
[2020-12-09] MEDS: ACETAZOLAMIDE SODIUM 500 MG/VIAL IV SCH ×2 (11:45→16:50)
[2020-12-09] MEDS: MICAFUNGIN SODIUM 50 ML IV SCH (16:50)
[2020-12-10] VITALS (24 sets, daily range): BP systolic 84–113; BP diastolic 60–82
[2020-12-10] MEDS: LEVALBUTEROL HCL SOLN NEBU 0.63 MG/3 ML NEB INH SCH ×4 (01:10→19:05)
[2020-12-10 03:46] LABS: BASOPHILS # (AUTO) 0.1 (0.0-0.1); BASOPHILS % 0.7 % (0.0-1.0); EOSINOPHILS # (AUTO) 0.4 (0.0-0.4); EOSINOPHILS % 3.5 % (0.0-6.0); HEMATOCRIT 29.9 % (38.2-49.6); HEMOGLOBIN 9.6 g/dL (14.0-18.0); LYMPHOCYTES # (AUTO) 0.9 (1.0-3.2); LYMPHOCYTES % 8.1 % (18.0-39.1); MEAN CORPUSCULAR HEMOGLOBIN 28.2 pg (28-32); MEAN CORPUSCULAR HGB CONC 32.1 g/dL (31-35); MEAN CORPUSCULAR VOLUME 87.7 fL (81-99); MONOCYTES # (AUTO) 0.8 (0.2-0.8); MONOCYTES % 6.9 % (4.4-11.3); NEUTROPHILS # (AUTO) 8.1 (2.1-6.9); NEUTROPHILS % 73.3 % (38.7-80.0); PLATELET COUNT 360 x10e3/uL (140-360); RED BLOOD COUNT 3.41 x10e6/uL (4.3-5.7); RED CELL DISTRIBUTION WIDTH 20.2 % (11.7-14.4)
[2020-12-10 04:03] LABS: ANION GAP 9.2 mmol/L (8-16); CALCIUM 7.5 mg/dL (8.4-10.2); CREATININE, SERUM 0.69 mg/dL (0.72-1.25); POTASSIUM 3.2 mmol/L (3.5-5.1)
[2020-12-10] MEDS: INSULIN LISPRO 100 UNIT/1 ML 3ML VIAL SQ SCH ×4 (06:00→17:34)
[2020-12-10] MEDS: LEVOTHYROXINE SODIUM 125 MCG TAB PO SCH (06:16)
[2020-12-10] MEDS: FUROSEMIDE INJ 10 MG/ML 4 ML VIAL IV SCH ×3 (06:17→21:31)
[2020-12-10] MEDS ORDERED: POTASSIUM CHLORIDE 20MEQ/100ML 100 ML IV ONE (09:15)
[2020-12-10] MEDS: BALSAM PERU/CASTOR OIL 60 GM OINT...G. TP SCH (09:36)
[2020-12-10] MEDS: ACETAZOLAMIDE SODIUM 500 MG/VIAL IV SCH ×2 (09:36→16:22)
[2020-12-10] MEDS: APIXABAN 5 MG TABLET PO SCH ×2 (09:36→16:22)
[2020-12-10] MEDS: SERTRALINE HCL 50 MG TAB PO SCH (09:36)
[2020-12-10] MEDS: AMIODARONE HCL 200 MG TAB PO SCH ×2 (09:36→16:22)
[2020-12-10] MEDS: CHLOROTHIAZIDE SODIUM 500 MG VIAL IV SCH ×2 (12:15→16:22)
[2020-12-10] MEDS: DOBUtamine HCL 500MG/D5W 250ML 250 ML IV SCH (12:52)
[2020-12-10] MEDS: MICAFUNGIN SODIUM 50 ML IV SCH (16:22)
[2020-12-11] VITALS (25 sets, daily range): BP systolic 87–110; BP diastolic 49–74
[2020-12-11] MEDS: LEVALBUTEROL HCL SOLN NEBU 0.63 MG/3 ML NEB INH SCH ×4 (01:05→19:20)
[2020-12-11 04:47] LABS: BASOPHILS # (AUTO) 0.1 (0.0-0.1); BASOPHILS % 0.6 % (0.0-1.0); EOSINOPHILS # (AUTO) 0.3 (0.0-0.4); EOSINOPHILS % 3.3 % (0.0-6.0); HEMATOCRIT 30.2 % (38.2-49.6); HEMOGLOBIN 9.8 g/dL (14.0-18.0); LYMPHOCYTES # (AUTO) 0.8 (1.0-3.2); LYMPHOCYTES % 9.3 % (18.0-39.1); MEAN CORPUSCULAR HEMOGLOBIN 28.3 pg (28-32); MEAN CORPUSCULAR HGB CONC 32.5 g/dL (31-35); MEAN CORPUSCULAR VOLUME 87.3 fL (81-99); MONOCYTES # (AUTO) 0.7 (0.2-0.8); MONOCYTES % 7.9 % (4.4-11.3); NEUTROPHILS # (AUTO) 6.6 (2.1-6.9); NEUTROPHILS % 72.6 % (38.7-80.0); PLATELET COUNT 407 x10e3/uL (140-360); RED BLOOD COUNT 3.46 x10e6/uL (4.3-5.7); RED CELL DISTRIBUTION WIDTH 20.3 % (11.7-14.4)
[2020-12-11 05:07] LABS: ANION GAP 11.2 mmol/L (8-16); CALCIUM 7.6 mg/dL (8.4-10.2); CREATININE, SERUM 0.7 mg/dL (0.72-1.25); POTASSIUM 3.2 mmol/L (3.5-5.1)
[2020-12-11] MEDS: DOBUtamine HCL 500MG/D5W 250ML 250 ML IV SCH (05:26)
[2020-12-11] MEDS: INSULIN LISPRO 100 UNIT/1 ML 3ML VIAL SQ SCH ×4 (05:46→17:45)
[2020-12-11] MEDS: FUROSEMIDE INJ 10 MG/ML 4 ML VIAL IV SCH ×3 (05:46→23:18)
[2020-12-11] MEDS: LEVOTHYROXINE SODIUM 125 MCG TAB PO SCH (05:46)
[2020-12-11] MEDS: SERTRALINE HCL 50 MG TAB PO SCH (08:27)
[2020-12-11] MEDS: AMIODARONE HCL 200 MG TAB PO SCH ×2 (08:27→16:19)
[2020-12-11] MEDS: BALSAM PERU/CASTOR OIL 60 GM OINT...G. TP SCH (08:27)
[2020-12-11] MEDS: APIXABAN 5 MG TABLET PO SCH ×2 (08:27→16:19)
[2020-12-11] MEDS: CHLOROTHIAZIDE SODIUM 500 MG VIAL IV SCH ×2 (08:34→16:19)
[2020-12-11] MEDS ORDERED: POTASSIUM CHLORIDE 20MEQ/100ML 200 ML IV ONE (11:00)
[2020-12-11 13:14] LABS: ABG PH 7.45 (7.35-7.45)
[2020-12-11 13:15] LABS: ABG HCO3 39 mmol/L (22-26); ABG PCO2 55 mmHg (35-45); ABG PO2 157 mmHg (80-105); ABG TCO2 40
[2020-12-11] MEDS: MICAFUNGIN SODIUM 50 ML IV SCH (16:19)
[2020-12-12] VITALS (24 sets, daily range): BP systolic 87–102; BP diastolic 51–71
[2020-12-12] MEDS: LEVALBUTEROL HCL SOLN NEBU 0.63 MG/3 ML NEB INH SCH ×4 (00:35→19:50)
[2020-12-12] MEDS: DOBUtamine HCL 500MG/D5W 250ML 250 ML IV SCH ×2 (02:14→18:07)
[2020-12-12 05:22] LABS: BASOPHILS # (AUTO) 0.1 (0.0-0.1); BASOPHILS % 0.8 % (0.0-1.0); EOSINOPHILS # (AUTO) 0.3 (0.0-0.4); EOSINOPHILS % 4.2 % (0.0-6.0); HEMATOCRIT 29.6 % (38.2-49.6); HEMOGLOBIN 9.7 g/dL (14.0-18.0); LYMPHOCYTES # (AUTO) 0.9 (1.0-3.2); LYMPHOCYTES % 11.1 % (18.0-39.1); MEAN CORPUSCULAR HEMOGLOBIN 28.4 pg (28-32); MEAN CORPUSCULAR HGB CONC 32.8 g/dL (31-35); MEAN CORPUSCULAR VOLUME 86.8 fL (81-99); MONOCYTES # (AUTO) 0.7 (0.2-0.8); MONOCYTES % 9.3 % (4.4-11.3); NEUTROPHILS # (AUTO) 5.3 (2.1-6.9); NEUTROPHILS % 67.4 % (38.7-80.0); PLATELET COUNT 426 x10e3/uL (140-360); RED BLOOD COUNT 3.41 x10e6/uL (4.3-5.7); RED CELL DISTRIBUTION WIDTH 20.5 % (11.7-14.4)
[2020-12-12] MEDS: FUROSEMIDE INJ 10 MG/ML 4 ML VIAL IV SCH ×3 (05:48→22:00)
[2020-12-12] MEDS: INSULIN LISPRO 100 UNIT/1 ML 3ML VIAL SQ SCH ×5 (05:49→23:50)
[2020-12-12] MEDS: LEVOTHYROXINE SODIUM 125 MCG TAB PO SCH (05:49)
[2020-12-12 06:05] LABS: CALCIUM 7.5 mg/dL (8.4-10.2); CREATININE, SERUM 0.73 mg/dL (0.72-1.25); POTASSIUM 3.3 mmol/L (3.5-5.1)
[2020-12-12 06:06] LABS: ANION GAP 5.3 mmol/L (8-16)
[2020-12-12 07:40] LABS: ANISOCYTOSIS MODERATE; BAND NEUTROPHILS % (MANUAL) 1 %; EOSINOPHILS % (MANUAL) 1 % (0-7); LYMPHOCYTES % (MANUAL) 15 % (19-48); MONOCYTES % (MANUAL) 5 % (3.4-9.0); MYELOCYTES % (MANUAL) 3 % (0-0); NEUTROPHILS % (MANUAL) 74 % (40-74); PLATELET ESTIMATE SLIGHTLY INCREASED; TARGET CELLS FEW
[2020-12-12 07:41] LABS: PLATELET MORPHOLOGY COMMENT FEW GIANT; POLYCHROMASIA FEW
[2020-12-12 07:42] LABS: RBC MORPHOLOGY COMMENT ABNORMAL; STOMATOCYTES SLIGHT
[2020-12-12 07:43] LABS: PLATELET CLUMPS FEW
[2020-12-12] MEDS: BALSAM PERU/CASTOR OIL 60 GM OINT...G. TP SCH (09:01)
[2020-12-12] MEDS: APIXABAN 5 MG TABLET PO SCH ×2 (09:01→17:22)
[2020-12-12] MEDS: SERTRALINE HCL 50 MG TAB PO SCH (09:01)
[2020-12-12] MEDS: AMIODARONE HCL 200 MG TAB PO SCH ×2 (09:01→17:22)
[2020-12-12 10:36] LABS: ABG PCO2 57 mmHg (35-45); ABG PH 7.48 (7.35-7.45); ABG PO2 169 mmHg (80-105)
[2020-12-12 10:37] LABS: ABG HCO3 43 mmol/L (22-26); ABG TCO2 45
[2020-12-12] MEDS ORDERED: POTASSIUM CHLORIDE 20MEQ/100ML 200 ML IV ONE (10:45)
[2020-12-12] MEDS: CEFEPIME 1 GM in SODIUM CHLORIDE 0.9% 50ML 50 ML IV SCH ×2 (15:14→23:00)
[2020-12-12] MEDS: MICAFUNGIN SODIUM 50 ML IV SCH (17:22)
[2020-12-12] MEDS: ACETAZOLAMIDE SODIUM 500 MG/VIAL IV SCH (17:22)
[2020-12-12] MEDS: CHLOROTHIAZIDE SODIUM 500 MG VIAL IV SCH (17:22)
[2020-12-13] VITALS (25 sets, daily range): BP systolic 95–108; BP diastolic 52–66
[2020-12-13] MEDS: LEVALBUTEROL HCL SOLN NEBU 0.63 MG/3 ML NEB INH SCH ×4 (03:20→19:35)
[2020-12-13 05:11] LABS: BASOPHILS % 0.4 % (0.0-1.0); EOSINOPHILS # (AUTO) 0.3 (0.0-0.4); EOSINOPHILS % 3.6 % (0.0-6.0); HEMATOCRIT 28.5 % (38.2-49.6); HEMOGLOBIN 9.2 g/dL (14.0-18.0); LYMPHOCYTES # (AUTO) 0.6 (1.0-3.2); LYMPHOCYTES % 7.4 % (18.0-39.1); MEAN CORPUSCULAR HEMOGLOBIN 28.6 pg (28-32); MEAN CORPUSCULAR HGB CONC 32.3 g/dL (31-35); MEAN CORPUSCULAR VOLUME 88.5 fL (81-99); MONOCYTES # (AUTO) 0.6 (0.2-0.8); MONOCYTES % 8.2 % (4.4-11.3); NEUTROPHILS # (AUTO) 5.7 (2.1-6.9); PLATELET COUNT 415 x10e3/uL (140-360); RED BLOOD COUNT 3.22 x10e6/uL (4.3-5.7)
[2020-12-13 05:25] LABS: ANION GAP 10.1 mmol/L (8-16); CALCIUM 7.9 mg/dL (8.4-10.2); CREATININE, SERUM 0.73 mg/dL (0.72-1.25); POTASSIUM 3.1 mmol/L (3.5-5.1)
[2020-12-13] MEDS: INSULIN LISPRO 100 UNIT/1 ML 3ML VIAL SQ SCH ×3 (06:00→17:15)
[2020-12-13] MEDS: LEVOTHYROXINE SODIUM 125 MCG TAB PO SCH (06:28)
[2020-12-13] MEDS: CEFEPIME 1 GM in SODIUM CHLORIDE 0.9% 50ML 50 ML IV SCH ×3 (06:28→22:09)
[2020-12-13] MEDS: ACETAZOLAMIDE SODIUM 500 MG/VIAL IV SCH ×2 (08:52→16:02)
[2020-12-13] MEDS: APIXABAN 5 MG TABLET PO SCH ×2 (08:52→16:02)
[2020-12-13] MEDS: BALSAM PERU/CASTOR OIL 60 GM OINT...G. TP SCH (08:52)
[2020-12-13] MEDS: FUROSEMIDE INJ 10 MG/ML 4 ML VIAL IV SCH ×2 (08:52→22:09)
[2020-12-13] MEDS: SERTRALINE HCL 50 MG TAB PO SCH (08:52)
[2020-12-13] MEDS: CHLOROTHIAZIDE SODIUM 500 MG VIAL IV SCH ×2 (08:52→16:02)
[2020-12-13] MEDS: AMIODARONE HCL 200 MG TAB PO SCH ×2 (08:52→16:02)
[2020-12-13] MEDS ORDERED: POTASSIUM CHLORIDE 20MEQ/100ML 200 ML IV ONE (11:15)
[2020-12-13] MEDS: DOBUtamine HCL 500MG/D5W 250ML 250 ML IV SCH (11:39)
[2020-12-13] MEDS: ACETAMINOPHEN 325 MG TAB PO PRN (19:01)
[2020-12-14] VITALS (27 sets, daily range): BP systolic 90–117; BP diastolic 48–67
[2020-12-14] MEDS: LEVALBUTEROL HCL SOLN NEBU 0.63 MG/3 ML NEB INH SCH ×4 (03:08→19:35)
[2020-12-14 04:52] LABS: BASOPHILS % 0.3 % (0.0-1.0); EOSINOPHILS # (AUTO) 0.3 (0.0-0.4); EOSINOPHILS % 4.4 % (0.0-6.0); HEMATOCRIT 28.4 % (38.2-49.6); LYMPHOCYTES # (AUTO) 0.8 (1.0-3.2); LYMPHOCYTES % 10.5 % (18.0-39.1); MEAN CORPUSCULAR HGB CONC 31.7 g/dL (31-35); MEAN CORPUSCULAR VOLUME 88.5 fL (81-99); MONOCYTES # (AUTO) 0.8 (0.2-0.8); MONOCYTES % 10.7 % (4.4-11.3); NEUTROPHILS # (AUTO) 5.6 (2.1-6.9); NEUTROPHILS % 72.2 % (38.7-80.0); PLATELET COUNT 387 x10e3/uL (140-360); RED BLOOD COUNT 3.21 x10e6/uL (4.3-5.7); RED CELL DISTRIBUTION WIDTH 19.9 % (11.7-14.4)
[2020-12-14 05:03] LABS: CALCIUM 8.1 mg/dL (8.4-10.2); CREATININE, SERUM 0.74 mg/dL (0.72-1.25)
[2020-12-14] MEDS ORDERED: POTASSIUM CHLORIDE 20MEQ/15ML UDC NG PRN (05:15)
[2020-12-14] MEDS: LEVOTHYROXINE SODIUM 125 MCG TAB PO SCH (05:59)
[2020-12-14] MEDS: INSULIN LISPRO 100 UNIT/1 ML 3ML VIAL SQ SCH ×5 (05:59→23:58)
[2020-12-14] MEDS: CEFEPIME 1 GM in SODIUM CHLORIDE 0.9% 50ML 50 ML IV SCH ×3 (05:59→22:30)
[2020-12-14] MEDS ORDERED: KCL 20 MEQ PACKET/ ORAL SOLN ONE (06:05)
[2020-12-14] MEDS: KCL 20 MEQ PACKET/ ORAL SOLN NG PRN (06:17)
[2020-12-14] MEDS: DOBUtamine HCL 500MG/D5W 250ML 250 ML IV SCH ×2 (06:17→23:10)
[2020-12-14] MEDS: FUROSEMIDE INJ 10 MG/ML 4 ML VIAL IV SCH ×2 (09:35→21:51)
[2020-12-14] MEDS: ACETAZOLAMIDE SODIUM 500 MG/VIAL IV SCH ×2 (09:35→18:13)
[2020-12-14] MEDS: AMIODARONE HCL 200 MG TAB PO SCH ×2 (09:36→18:15)
[2020-12-14] MEDS ORDERED: ROCURONIUM BROMIDE 10 MG/ML 5ML VIAL IV ONE (09:39)
[2020-12-14] MEDS ORDERED: ONDANSETRON HCL INJ 2MG/ML 2ML 2 MG/ML VIAL ONE (09:39)
[2020-12-14] MEDS ORDERED: PHENYLEPHRINE HCL 1% 10 MG/ML VIAL ONE (09:39)
[2020-12-14] MEDS: SERTRALINE HCL 50 MG TAB PO SCH (09:40)
[2020-12-14] MEDS: BALSAM PERU/CASTOR OIL 60 GM OINT...G. TP SCH (09:41)
[2020-12-14] MEDS: CHLOROTHIAZIDE SODIUM 500 MG VIAL IV SCH ×2 (11:32→18:21)
[2020-12-14] MEDS ORDERED: KCL 20 MEQ PACKET/ ORAL SOLN PO ONE (15:30)
[2020-12-15] VITALS (25 sets, daily range): BP systolic 90–132; BP diastolic 51–79
[2020-12-15] MEDS: LEVALBUTEROL HCL SOLN NEBU 0.63 MG/3 ML NEB INH SCH ×4 (02:55→19:18)
[2020-12-15 05:59] LABS: BASOPHILS % 0.4 % (0.0-1.0); EOSINOPHILS # (AUTO) 0.4 (0.0-0.4); EOSINOPHILS % 5.5 % (0.0-6.0); HEMATOCRIT 28.7 % (38.2-49.6); HEMOGLOBIN 9.1 g/dL (14.0-18.0); LYMPHOCYTES # (AUTO) 0.9 (1.0-3.2); LYMPHOCYTES % 13.1 % (18.0-39.1); MEAN CORPUSCULAR HEMOGLOBIN 28.2 pg (28-32); MEAN CORPUSCULAR HGB CONC 31.7 g/dL (31-35); MEAN CORPUSCULAR VOLUME 88.9 fL (81-99); MONOCYTES # (AUTO) 0.9 (0.2-0.8); MONOCYTES % 12.9 % (4.4-11.3); NEUTROPHILS # (AUTO) 4.7 (2.1-6.9); NEUTROPHILS % 66.3 % (38.7-80.0); PLATELET COUNT 384 x10e3/uL (140-360); RED BLOOD COUNT 3.23 x10e6/uL (4.3-5.7); RED CELL DISTRIBUTION WIDTH 19.5 % (11.7-14.4)
[2020-12-15] MEDS: LEVOTHYROXINE SODIUM 125 MCG TAB PO SCH (06:00)
[2020-12-15] MEDS: INSULIN LISPRO 100 UNIT/1 ML 3ML VIAL SQ SCH ×4 (06:00→23:58)
[2020-12-15 06:10] LABS: ANION GAP 7.9 mmol/L (8-16); CALCIUM 7.9 mg/dL (8.4-10.2); CREATININE, SERUM 0.7 mg/dL (0.72-1.25); INR 1.09; PROTHROMBIN TIME 14.8 seconds (11.9-14.5)
[2020-12-15] MEDS: CEFEPIME 1 GM in SODIUM CHLORIDE 0.9% 50ML 50 ML IV SCH ×3 (06:10→22:09)
[2020-12-15 06:11] LABS: PARTIAL THROMBOPLASTIN TIME 34.3 seconds (23.8-35.5)
[2020-12-15 06:13] LABS: POTASSIUM 2.9 mmol/L (3.5-5.1)
[2020-12-15] MEDS ORDERED: POTASSIUM CHLORIDE 20MEQ/100ML 200 ML IV ONE (06:30)
[2020-12-15] MEDS ORDERED: LIDOCAINE 1% W/EPINEPHRINE 20 ML VIAL ONE (06:31)
[2020-12-15] MEDS ORDERED: MIDAZOLAM HCL 2 MG/2 ML VIAL ONE (07:30)
[2020-12-15] MEDS ORDERED: FENTANYL CITRATE/PF 100MCG/2 ML INJ ONE (07:30)
[2020-12-15] MEDS: ACETAZOLAMIDE SODIUM 500 MG/VIAL IV SCH (09:22)
[2020-12-15] MEDS: SERTRALINE HCL 50 MG TAB PO SCH (09:23)
[2020-12-15] MEDS: AMIODARONE HCL 200 MG TAB PO SCH ×2 (09:23→17:19)
[2020-12-15] MEDS: CHLOROTHIAZIDE SODIUM 500 MG VIAL IV SCH (09:23)
[2020-12-15] MEDS: FUROSEMIDE INJ 10 MG/ML 4 ML VIAL IV SCH ×2 (09:23→21:31)
[2020-12-15] MEDS: BALSAM PERU/CASTOR OIL 60 GM OINT...G. TP SCH (09:23)
[2020-12-15] MEDS: DOBUtamine HCL 500MG/D5W 250ML 250 ML IV SCH (17:19)
[2020-12-16] VITALS (26 sets, daily range): BP systolic 90–114; BP diastolic 51–71
[2020-12-16] MEDS: ACETAMINOPHEN 325 MG TAB PO PRN ×2 (00:06→05:59)
[2020-12-16] MEDS: LEVALBUTEROL HCL SOLN NEBU 0.63 MG/3 ML NEB INH SCH ×4 (02:55→18:54)
[2020-12-16] MEDS: CEFEPIME 1 GM in SODIUM CHLORIDE 0.9% 50ML 50 ML IV SCH ×3 (05:58→21:56)
[2020-12-16] MEDS: INSULIN LISPRO 100 UNIT/1 ML 3ML VIAL SQ SCH ×4 (06:00→23:58)
[2020-12-16 06:07] LABS: BASOPHILS # (AUTO) 0.1 (0.0-0.1); BASOPHILS % 0.8 % (0.0-1.0); EOSINOPHILS # (AUTO) 0.3 (0.0-0.4); EOSINOPHILS % 4.7 % (0.0-6.0); HEMOGLOBIN 9.4 g/dL (14.0-18.0); LYMPHOCYTES % 13.9 % (18.0-39.1); MEAN CORPUSCULAR HEMOGLOBIN 28.9 pg (28-32); MEAN CORPUSCULAR HGB CONC 32.4 g/dL (31-35); MEAN CORPUSCULAR VOLUME 89.2 fL (81-99); MONOCYTES # (AUTO) 0.9 (0.2-0.8); MONOCYTES % 12.7 % (4.4-11.3); NEUTROPHILS # (AUTO) 4.8 (2.1-6.9); NEUTROPHILS % 66.9 % (38.7-80.0); PLATELET COUNT 386 x10e3/uL (140-360); RED BLOOD COUNT 3.25 x10e6/uL (4.3-5.7); RED CELL DISTRIBUTION WIDTH 19.4 % (11.7-14.4)
[2020-12-16] MEDS: LEVOTHYROXINE SODIUM 125 MCG TAB PO SCH (06:13)
[2020-12-16 06:18] LABS: CALCIUM 8.1 mg/dL (8.4-10.2); CREATININE, SERUM 0.78 mg/dL (0.72-1.25)
[2020-12-16] MEDS: FUROSEMIDE INJ 10 MG/ML 4 ML VIAL IV SCH ×2 (08:23→21:12)
[2020-12-16] MEDS: AMIODARONE HCL 200 MG TAB PO SCH ×2 (08:24→17:21)
[2020-12-16] MEDS: SERTRALINE HCL 50 MG TAB PO SCH (08:24)
[2020-12-16] MEDS: BALSAM PERU/CASTOR OIL 60 GM OINT...G. TP SCH (08:25)
[2020-12-16] MEDS: APIXABAN 5 MG TABLET PO SCH ×2 (09:00→17:00)
[2020-12-16] MEDS: KCL 20 MEQ PACKET/ ORAL SOLN NG PRN (09:10)
[2020-12-16 11:01] LABS: ABG HCO3 39 mmol/L (22-26); ABG PCO2 50 mmHg (35-45); ABG PO2 192 mmHg (80-105); ABG TCO2 41
[2020-12-16 13:07] LABS: ABG HCO3 38 mmol/L (22-26); ABG PCO2 51 mmHg (35-45); ABG PH 7.48 (7.35-7.45); ABG PO2 78 mmHg (80-105); ABG TCO2 39
[2020-12-16] MEDS: DOBUtamine HCL 500MG/D5W 250ML 250 ML IV SCH (13:21)
[2020-12-17] VITALS (25 sets, daily range): BP systolic 91–126; BP diastolic 54–72
[2020-12-17] MEDS: LEVALBUTEROL HCL SOLN NEBU 0.63 MG/3 ML NEB INH SCH ×4 (02:10→18:55)
[2020-12-17] MEDS: ACETAMINOPHEN 325 MG TAB PO PRN ×2 (03:15→15:57)
[2020-12-17] MEDS: INSULIN LISPRO 100 UNIT/1 ML 3ML VIAL SQ SCH ×4 (06:00→23:20)
[2020-12-17] MEDS: LEVOTHYROXINE SODIUM 125 MCG TAB PO SCH (06:00)
[2020-12-17] MEDS: CEFEPIME 1 GM in SODIUM CHLORIDE 0.9% 50ML 50 ML IV SCH ×3 (06:00→22:40)
[2020-12-17 06:03] LABS: BASOPHILS # (AUTO) 0.1 (0.0-0.1); BASOPHILS % 0.8 % (0.0-1.0); EOSINOPHILS # (AUTO) 0.4 (0.0-0.4); EOSINOPHILS % 4.7 % (0.0-6.0); HEMATOCRIT 29.8 % (38.2-49.6); HEMOGLOBIN 9.4 g/dL (14.0-18.0); LYMPHOCYTES # (AUTO) 1.2 (1.0-3.2); LYMPHOCYTES % 13.5 % (18.0-39.1); MEAN CORPUSCULAR HEMOGLOBIN 28.4 pg (28-32); MEAN CORPUSCULAR HGB CONC 31.5 g/dL (31-35); MONOCYTES # (AUTO) 1.1 (0.2-0.8); MONOCYTES % 12.7 % (4.4-11.3); NEUTROPHILS # (AUTO) 5.8 (2.1-6.9); NEUTROPHILS % 67.4 % (38.7-80.0); PLATELET COUNT 359 x10e3/uL (140-360); RED BLOOD COUNT 3.31 x10e6/uL (4.3-5.7); RED CELL DISTRIBUTION WIDTH 19.1 % (11.7-14.4)
[2020-12-17] MEDS: DOBUtamine HCL 500MG/D5W 250ML 250 ML IV SCH ×2 (06:03→23:21)
[2020-12-17 06:31] LABS: ALBUMIN 1.8 g/dL (3.5-5.0); ALBUMIN/GLOBULIN RATIO 0.4 (0.8-2.0); ANION GAP 12.2 mmol/L (8-16); CREATININE, SERUM 0.77 mg/dL (0.72-1.25); POTASSIUM 3.2 mmol/L (3.5-5.1)
[2020-12-17] MEDS: FUROSEMIDE INJ 10 MG/ML 4 ML VIAL IV SCH (09:14)
[2020-12-17] MEDS: APIXABAN 5 MG TABLET PO SCH ×2 (09:15→14:52)
[2020-12-17] MEDS: BALSAM PERU/CASTOR OIL 60 GM OINT...G. TP SCH (09:15)
[2020-12-17] MEDS: KCL 20 MEQ PACKET/ ORAL SOLN NG PRN (09:15)
[2020-12-17] MEDS: SERTRALINE HCL 50 MG TAB PO SCH (09:15)
[2020-12-17] MEDS: AMIODARONE HCL 200 MG TAB PO SCH ×2 (09:15→14:52)
[2020-12-17 13:27] LABS: ABG HCO3 38 mmol/L (22-26); ABG PCO2 47 mmHg (35-45); ABG PH 7.51 (7.35-7.45); ABG PO2 83 mmHg (80-105); ABG TCO2 39
[2020-12-18] VITALS (25 sets, daily range): BP systolic 97–120; BP diastolic 51–71
[2020-12-18] MEDS: LEVALBUTEROL HCL SOLN NEBU 0.63 MG/3 ML NEB INH SCH ×4 (03:05→19:15)
[2020-12-18] MEDS: LEVOTHYROXINE SODIUM 125 MCG TAB PO SCH (05:01)
[2020-12-18] MEDS: CEFEPIME 1 GM in SODIUM CHLORIDE 0.9% 50ML 50 ML IV SCH ×3 (05:19→22:31)
[2020-12-18 05:26] LABS: BASOPHILS # (AUTO) 0.1 (0.0-0.1); EOSINOPHILS # (AUTO) 0.5 (0.0-0.4); HEMATOCRIT 28.3 % (38.2-49.6); LYMPHOCYTES # (AUTO) 1.1 (1.0-3.2); LYMPHOCYTES % 12.2 % (18.0-39.1); MEAN CORPUSCULAR HEMOGLOBIN 28.7 pg (28-32); MEAN CORPUSCULAR HGB CONC 31.8 g/dL (31-35); MEAN CORPUSCULAR VOLUME 90.1 fL (81-99); MONOCYTES % 11.1 % (4.4-11.3); NEUTROPHILS % 69.1 % (38.7-80.0); PLATELET COUNT 315 x10e3/uL (140-360); RED BLOOD COUNT 3.14 x10e6/uL (4.3-5.7); RED CELL DISTRIBUTION WIDTH 18.9 % (11.7-14.4)
[2020-12-18 05:59] LABS: ANION GAP 12.2 mmol/L (8-16); CALCIUM 8.3 mg/dL (8.4-10.2); CREATININE, SERUM 0.71 mg/dL (0.72-1.25); POTASSIUM 3.2 mmol/L (3.5-5.1)
[2020-12-18] MEDS: INSULIN LISPRO 100 UNIT/1 ML 3ML VIAL SQ SCH ×4 (06:00→23:55)
[2020-12-18] MEDS: KCL 20 MEQ PACKET/ ORAL SOLN NG PRN (06:42)
[2020-12-18] MEDS: APIXABAN 5 MG TABLET PO SCH ×2 (08:43→17:22)
[2020-12-18] MEDS: FUROSEMIDE INJ 10 MG/ML 2 ML VIAL IV SCH (08:43)
[2020-12-18] MEDS: SERTRALINE HCL 50 MG TAB PO SCH (08:43)
[2020-12-18] MEDS: AMIODARONE HCL 200 MG TAB PO SCH ×2 (08:43→17:22)
[2020-12-18] MEDS: BALSAM PERU/CASTOR OIL 60 GM OINT...G. TP SCH (08:44)
[2020-12-18] MEDS: DOBUtamine HCL 500MG/D5W 250ML 250 ML IV SCH (22:30)
[2020-12-19] VITALS (27 sets, daily range): BP systolic 90–117; BP diastolic 49–71
[2020-12-19] MEDS: LEVALBUTEROL HCL SOLN NEBU 0.63 MG/3 ML NEB INH SCH ×4 (02:30→20:25)
[2020-12-19 05:43] LABS: BASOPHILS # (AUTO) 0.1 (0.0-0.1); BASOPHILS % 1.1 % (0.0-1.0); EOSINOPHILS # (AUTO) 0.7 (0.0-0.4); EOSINOPHILS % 6.6 % (0.0-6.0); HEMATOCRIT 29.5 % (38.2-49.6); HEMOGLOBIN 9.3 g/dL (14.0-18.0); LYMPHOCYTES # (AUTO) 1.4 (1.0-3.2); LYMPHOCYTES % 13.3 % (18.0-39.1); MEAN CORPUSCULAR HEMOGLOBIN 28.7 pg (28-32); MEAN CORPUSCULAR HGB CONC 31.5 g/dL (31-35); MONOCYTES % 9.8 % (4.4-11.3); NEUTROPHILS # (AUTO) 6.9 (2.1-6.9); NEUTROPHILS % 68.4 % (38.7-80.0); PLATELET COUNT 297 x10e3/uL (140-360); RED BLOOD COUNT 3.24 x10e6/uL (4.3-5.7); RED CELL DISTRIBUTION WIDTH 18.8 % (11.7-14.4)
[2020-12-19] MEDS: INSULIN LISPRO 100 UNIT/1 ML 3ML VIAL SQ SCH ×3 (06:00→17:14)
[2020-12-19] MEDS: CEFEPIME 1 GM in SODIUM CHLORIDE 0.9% 50ML 50 ML IV SCH ×3 (06:07→21:54)
[2020-12-19] MEDS: LEVOTHYROXINE SODIUM 125 MCG TAB PO SCH (06:07)
[2020-12-19 06:20] LABS: ANION GAP 14.8 mmol/L (8-16); CALCIUM 8.4 mg/dL (8.4-10.2); CREATININE, SERUM 0.66 mg/dL (0.72-1.25); POTASSIUM 3.8 mmol/L (3.5-5.1)
[2020-12-19] MEDS: FUROSEMIDE INJ 10 MG/ML 2 ML VIAL IV SCH (08:24)
[2020-12-19] MEDS: AMIODARONE HCL 200 MG TAB PO SCH ×2 (08:24→16:48)
[2020-12-19] MEDS: BALSAM PERU/CASTOR OIL 60 GM OINT...G. TP SCH (08:25)
[2020-12-19] MEDS: SERTRALINE HCL 50 MG TAB PO SCH (08:25)
[2020-12-19] MEDS: DOBUtamine HCL 500MG/D5W 250ML 250 ML IV SCH (14:00)
[2020-12-19] MEDS: MELATONIN 5 MG TABLET PO PRN (21:11)
[2020-12-20] VITALS (30 sets, daily range): BP systolic 94–120; BP diastolic 54–81
[2020-12-20] MEDS: LEVALBUTEROL HCL SOLN NEBU 0.63 MG/3 ML NEB INH SCH ×5 (01:40→20:00)
[2020-12-20 05:01] LABS: BASOPHILS # (AUTO) 0.2 (0.0-0.1); BASOPHILS % 1.3 % (0.0-1.0); EOSINOPHILS # (AUTO) 0.8 (0.0-0.4); EOSINOPHILS % 7.1 % (0.0-6.0); HEMATOCRIT 30.6 % (38.2-49.6); HEMOGLOBIN 9.7 g/dL (14.0-18.0); LYMPHOCYTES # (AUTO) 1.5 (1.0-3.2); LYMPHOCYTES % 13.1 % (18.0-39.1); MEAN CORPUSCULAR HEMOGLOBIN 28.8 pg (28-32); MEAN CORPUSCULAR HGB CONC 31.7 g/dL (31-35); MEAN CORPUSCULAR VOLUME 90.8 fL (81-99); MONOCYTES # (AUTO) 1.1 (0.2-0.8); NEUTROPHILS # (AUTO) 7.5 (2.1-6.9); NEUTROPHILS % 67.5 % (38.7-80.0); PLATELET COUNT 290 x10e3/uL (140-360); RED BLOOD COUNT 3.37 x10e6/uL (4.3-5.7); RED CELL DISTRIBUTION WIDTH 18.6 % (11.7-14.4)
[2020-12-20 05:17] LABS: ANION GAP 13.5 mmol/L (8-16); CALCIUM 8.2 mg/dL (8.4-10.2); CREATININE, SERUM 0.7 mg/dL (0.72-1.25); POTASSIUM 3.5 mmol/L (3.5-5.1)
[2020-12-20] MEDS: LEVOTHYROXINE SODIUM 125 MCG TAB PO SCH (05:37)
[2020-12-20] MEDS: CEFEPIME 1 GM in SODIUM CHLORIDE 0.9% 50ML 50 ML IV SCH ×3 (05:37→21:51)
[2020-12-20] MEDS: INSULIN LISPRO 100 UNIT/1 ML 3ML VIAL SQ SCH ×5 (05:45→23:58)
[2020-12-20 08:53] LABS: INR 1.07; PROTHROMBIN TIME 14.6 seconds (11.9-14.5)
[2020-12-20 08:54] LABS: PARTIAL THROMBOPLASTIN TIME 32.6 seconds (23.8-35.5)
[2020-12-20] MEDS: FUROSEMIDE INJ 10 MG/ML 2 ML VIAL IV SCH (09:41)
[2020-12-20] MEDS: SERTRALINE HCL 50 MG TAB PO SCH (09:41)
[2020-12-20] MEDS: AMIODARONE HCL 200 MG TAB PO SCH ×2 (09:41→17:00)
[2020-12-20] MEDS: BALSAM PERU/CASTOR OIL 60 GM OINT...G. TP SCH (09:41)
[2020-12-20] MEDS ORDERED: ACETYLCYSTEINE 200 MG/ML 4ML VIAL INH SCH (11:00)
[2020-12-20] MEDS ORDERED: MIDAZOLAM HCL 2 MG/2 ML VIAL ONE (12:24)
[2020-12-20] MEDS ORDERED: LIDOCAINE HCL 2% LOCAL INJ 5 ML SDV VIAL INJ ONE (13:57)
[2020-12-20] MEDS ORDERED: PROPOFOL IV EMULSION 10 MG/ML 20 ML VIAL ONE (13:57)
[2020-12-20] MEDS: ACETYLCYSTEINE 200 MG/ML 4ML VIAL INH SCH ×2 (14:15→20:00)
[2020-12-20] MEDS ORDERED: SODIUM CHLORIDE 0.9% 1000ML 1,000 ML ONE (16:42)
[2020-12-20] MEDS: DEXTROSE 5%/0.9% SOD CHL 1,000 ML IV SCH (19:48)
[2020-12-21] VITALS (25 sets, daily range): BP systolic 96–124; BP diastolic 52–80
[2020-12-21] MEDS: LEVALBUTEROL HCL SOLN NEBU 0.63 MG/3 ML NEB INH SCH ×4 (00:50→19:35)
[2020-12-21 04:48] LABS: BASOPHILS # (AUTO) 0.1 (0.0-0.1); BASOPHILS % 1.1 % (0.0-1.0); EOSINOPHILS # (AUTO) 0.5 (0.0-0.4); EOSINOPHILS % 4.9 % (0.0-6.0); HEMATOCRIT 29.1 % (38.2-49.6); HEMOGLOBIN 9.1 g/dL (14.0-18.0); LYMPHOCYTES # (AUTO) 1.4 (1.0-3.2); LYMPHOCYTES % 13.1 % (18.0-39.1); MEAN CORPUSCULAR HEMOGLOBIN 28.6 pg (28-32); MEAN CORPUSCULAR HGB CONC 31.3 g/dL (31-35); MEAN CORPUSCULAR VOLUME 91.5 fL (81-99); MONOCYTES # (AUTO) 1.1 (0.2-0.8); MONOCYTES % 9.9 % (4.4-11.3); NEUTROPHILS # (AUTO) 7.6 (2.1-6.9); PLATELET COUNT 279 x10e3/uL (140-360); RED BLOOD COUNT 3.18 x10e6/uL (4.3-5.7); RED CELL DISTRIBUTION WIDTH 18.6 % (11.7-14.4)
[2020-12-21 05:18] LABS: ANION GAP 13.4 mmol/L (8-16); CALCIUM 8.3 mg/dL (8.4-10.2); CREATININE, SERUM 0.71 mg/dL (0.72-1.25); POTASSIUM 3.4 mmol/L (3.5-5.1)
[2020-12-21] MEDS: LEVOTHYROXINE SODIUM 125 MCG TAB PO SCH (06:00)
[2020-12-21] MEDS: INSULIN LISPRO 100 UNIT/1 ML 3ML VIAL SQ SCH ×3 (06:00→17:34)
[2020-12-21] MEDS: CEFEPIME 1 GM in SODIUM CHLORIDE 0.9% 50ML 50 ML IV SCH ×3 (06:04→22:06)
[2020-12-21] MEDS: ACETYLCYSTEINE 200 MG/ML 4ML VIAL INH SCH ×2 (07:26→19:30)
[2020-12-21] MEDS: AMIODARONE HCL 200 MG TAB PO SCH ×2 (09:00→17:31)
[2020-12-21] MEDS: SERTRALINE HCL 50 MG TAB PO SCH (09:00)
[2020-12-21] MEDS: BALSAM PERU/CASTOR OIL 60 GM OINT...G. TP SCH (11:07)
[2020-12-21] MEDS: FUROSEMIDE INJ 10 MG/ML 2 ML VIAL IV SCH (11:07)
[2020-12-21] MEDS: DEXTROSE 5%/0.9% SOD CHL 1,000 ML IV SCH (11:09)
[2020-12-22] VITALS (25 sets, daily range): BP systolic 88–109; BP diastolic 49–73
[2020-12-22] MEDS: LEVALBUTEROL HCL SOLN NEBU 0.63 MG/3 ML NEB INH SCH ×5 (00:35→23:06)
[2020-12-22] MEDS: LEVOTHYROXINE SODIUM 125 MCG TAB PO SCH (05:28)
[2020-12-22] MEDS: CEFEPIME 1 GM in SODIUM CHLORIDE 0.9% 50ML 50 ML IV SCH ×2 (05:28→14:03)
[2020-12-22] MEDS: INSULIN LISPRO 100 UNIT/1 ML 3ML VIAL SQ SCH ×5 (05:29→23:55)
[2020-12-22] MEDS: ACETYLCYSTEINE 200 MG/ML 4ML VIAL INH SCH ×2 (07:15→20:06)
[2020-12-22] MEDS: SERTRALINE HCL 50 MG TAB PO SCH (08:20)
[2020-12-22] MEDS: BALSAM PERU/CASTOR OIL 60 GM OINT...G. TP SCH (08:20)
[2020-12-22] MEDS: AMIODARONE HCL 200 MG TAB PO SCH ×2 (08:20→16:01)
[2020-12-22] MEDS: FUROSEMIDE INJ 10 MG/ML 2 ML VIAL IV SCH (08:20)
[2020-12-23] VITALS (26 sets, daily range): BP systolic 89–108; BP diastolic 53–80
[2020-12-23 05:50] LABS: BASOPHILS # (AUTO) 0.1 (0.0-0.1); BASOPHILS % 1.1 % (0.0-1.0); EOSINOPHILS # (AUTO) 0.8 (0.0-0.4); EOSINOPHILS % 6.7 % (0.0-6.0); HEMATOCRIT 33.5 % (38.2-49.6); HEMOGLOBIN 10.3 g/dL (14.0-18.0); LYMPHOCYTES # (AUTO) 1.8 (1.0-3.2); LYMPHOCYTES % 14.7 % (18.0-39.1); MEAN CORPUSCULAR HEMOGLOBIN 28.5 pg (28-32); MEAN CORPUSCULAR HGB CONC 30.7 g/dL (31-35); MEAN CORPUSCULAR VOLUME 92.5 fL (81-99); MONOCYTES % 8.1 % (4.4-11.3); NEUTROPHILS # (AUTO) 8.3 (2.1-6.9); NEUTROPHILS % 68.6 % (38.7-80.0); PLATELET COUNT 272 x10e3/uL (140-360); RED BLOOD COUNT 3.62 x10e6/uL (4.3-5.7); RED CELL DISTRIBUTION WIDTH 18.3 % (11.7-14.4)
[2020-12-23] MEDS: INSULIN LISPRO 100 UNIT/1 ML 3ML VIAL SQ SCH ×2 (06:00→12:00)
[2020-12-23 06:05] LABS: ANION GAP 10.3 mmol/L (8-16); CALCIUM 8.2 mg/dL (8.4-10.2); CREATININE, SERUM 0.67 mg/dL (0.72-1.25); POTASSIUM 3.3 mmol/L (3.5-5.1)
[2020-12-23] MEDS: LEVOTHYROXINE SODIUM 125 MCG TAB PO SCH (06:43)
[2020-12-23] MEDS: LEVALBUTEROL HCL SOLN NEBU 0.63 MG/3 ML NEB INH SCH ×3 (07:08→19:35)
[2020-12-23] MEDS: ACETYLCYSTEINE 200 MG/ML 4ML VIAL INH SCH ×2 (07:08→19:35)
[2020-12-23] MEDS: KCL 20 MEQ PACKET/ ORAL SOLN NG PRN (08:15)
[2020-12-23] MEDS: FUROSEMIDE INJ 10 MG/ML 2 ML VIAL IV SCH (08:16)
[2020-12-23] MEDS: SIMETHICONE 40 MG/0.6 ML BTL PO PRN ×2 (08:16→17:00)
[2020-12-23] MEDS: AMIODARONE HCL 200 MG TAB PO SCH ×2 (08:16→17:00)
[2020-12-23] MEDS: NYSTATIN 15 GM POWDER UD BTL TOP SCH (15:38)
[2020-12-24] VITALS (17 sets, daily range): BP systolic 81–105; BP diastolic 27–76
[2020-12-24] MEDS: LEVALBUTEROL HCL SOLN NEBU 0.63 MG/3 ML NEB INH SCH ×4 (00:20→19:32)
[2020-12-24] MEDS: LEVOTHYROXINE SODIUM 125 MCG TAB PO SCH (06:32)
[2020-12-24] MEDS: NYSTATIN 15 GM POWDER UD BTL TOP SCH ×2 (06:32→17:25)
[2020-12-24] MEDS: FUROSEMIDE INJ 10 MG/ML 2 ML VIAL IV SCH (08:51)
[2020-12-24] MEDS: AMIODARONE HCL 200 MG TAB PO SCH ×2 (08:51→16:44)
[2020-12-24] MEDS ORDERED: KCL 20 MEQ PACKET/ ORAL SOLN NG ONE (09:45)
[2020-12-24] MEDS: ACETYLCYSTEINE 200 MG/ML 4ML VIAL INH SCH ×2 (10:33→19:32)
[2020-12-25] VITALS (16 sets, daily range): BP systolic 86–127; BP diastolic 38–113
[2020-12-25] MEDS: LEVALBUTEROL HCL SOLN NEBU 0.63 MG/3 ML NEB INH SCH ×4 (00:37→19:15)
[2020-12-25] MEDS: ACETYLCYSTEINE 200 MG/ML 4ML VIAL INH SCH ×2 (07:13→19:15)
[2020-12-25] MEDS: NYSTATIN 15 GM POWDER UD BTL TOP SCH ×2 (07:41→18:16)
[2020-12-25] MEDS ORDERED: KCL 20 MEQ PACKET/ ORAL SOLN NG ONE (07:45)
[2020-12-25] MEDS: FUROSEMIDE INJ 10 MG/ML 2 ML VIAL IV SCH (08:39)
[2020-12-25] MEDS: LEVOTHYROXINE SODIUM 125 MCG TAB PO SCH (08:39)
[2020-12-25] MEDS: AMIODARONE HCL 200 MG TAB PO SCH ×2 (08:39→16:21)
[2020-12-25] MEDS: APIXABAN 5 MG TABLET PO SCH (13:20)
[2020-12-25 13:26] LABS: BASOPHILS # (AUTO) 0.1 (0.0-0.1); BASOPHILS % 0.7 % (0.0-1.0); EOSINOPHILS # (AUTO) 0.4 (0.0-0.4); HEMATOCRIT 34.5 % (38.2-49.6); HEMOGLOBIN 10.6 g/dL (14.0-18.0); LYMPHOCYTES # (AUTO) 2.1 (1.0-3.2); MEAN CORPUSCULAR HEMOGLOBIN 28.6 pg (28-32); MEAN CORPUSCULAR HGB CONC 30.7 g/dL (31-35); MONOCYTES # (AUTO) 1.5 (0.2-0.8); MONOCYTES % 8.2 % (4.4-11.3); NEUTROPHILS # (AUTO) 13.6 (2.1-6.9); NEUTROPHILS % 76.1 % (38.7-80.0); PLATELET COUNT 298 x10e3/uL (140-360); RED BLOOD COUNT 3.71 x10e6/uL (4.3-5.7)
[2020-12-25 13:54] LABS: ALBUMIN 2.1 g/dL (3.5-5.0); ALBUMIN/GLOBULIN RATIO 0.4 (0.8-2.0); ANION GAP 12.7 mmol/L (8-16); CALCIUM 8.6 mg/dL (8.4-10.2); CREATININE, SERUM 0.83 mg/dL (0.72-1.25); POTASSIUM 4.7 mmol/L (3.5-5.1)
[2020-12-26] VITALS (26 sets, daily range): BP systolic 71–108; BP diastolic 47–83
[2020-12-26] MEDS: LEVALBUTEROL HCL SOLN NEBU 0.63 MG/3 ML NEB INH SCH ×4 (02:35→19:30)
[2020-12-26] MEDS: NYSTATIN 15 GM POWDER UD BTL TOP SCH ×2 (06:00→17:10)
[2020-12-26] MEDS: LEVOTHYROXINE SODIUM 125 MCG TAB PO SCH (06:00)
[2020-12-26] MEDS: ACETYLCYSTEINE 200 MG/ML 4ML VIAL INH SCH ×2 (06:44→19:30)
[2020-12-26] MEDS: FUROSEMIDE INJ 10 MG/ML 2 ML VIAL IV SCH (08:30)
[2020-12-26] MEDS: APIXABAN 5 MG TABLET PO SCH ×2 (08:30→16:31)
[2020-12-26] MEDS: AMIODARONE HCL 200 MG TAB PO SCH ×2 (08:30→16:31)
[2020-12-26] MEDS ORDERED: FUROSEMIDE INJ 10 MG/ML 4 ML VIAL IV ONE (10:00)
[2020-12-26] MEDS: FUROSEMIDE INJ 10 MG/ML 4 ML VIAL IV SCH ×2 (13:00→17:04)
[2020-12-26] MEDS ORDERED: DIGOXIN INJ 0.25 MG/ML 2 ML AMP IV ONE (15:45)
[2020-12-26] MEDS: CEFEPIME 1 GM in SODIUM CHLORIDE 0.9% 50ML 50 ML IV SCH ×2 (17:04→22:00)
[2020-12-27] VITALS (26 sets, daily range): BP systolic 74–118; BP diastolic 39–74
[2020-12-27] MEDS: LEVALBUTEROL HCL SOLN NEBU 0.63 MG/3 ML NEB INH SCH ×4 (02:30→19:50)
[2020-12-27] MEDS: NYSTATIN 15 GM POWDER UD BTL TOP SCH ×2 (06:00→16:53)
[2020-12-27] MEDS: FUROSEMIDE INJ 10 MG/ML 4 ML VIAL IV SCH ×2 (06:12)
[2020-12-27] MEDS: LEVOTHYROXINE SODIUM 125 MCG TAB PO SCH (06:13)
[2020-12-27] MEDS: CEFEPIME 1 GM in SODIUM CHLORIDE 0.9% 50ML 50 ML IV SCH ×3 (06:13→22:00)
[2020-12-27 06:56] LABS: BASOPHILS # (AUTO) 0.2 (0.0-0.1); BASOPHILS % 1.4 % (0.0-1.0); EOSINOPHILS # (AUTO) 0.6 (0.0-0.4); EOSINOPHILS % 5.2 % (0.0-6.0); HEMOGLOBIN 12.4 g/dL (14.0-18.0); LYMPHOCYTES # (AUTO) 1.6 (1.0-3.2); LYMPHOCYTES % 14.1 % (18.0-39.1); MEAN CORPUSCULAR HEMOGLOBIN 28.4 pg (28-32); MEAN CORPUSCULAR HGB CONC 30.2 g/dL (31-35); MEAN CORPUSCULAR VOLUME 93.8 fL (81-99); MONOCYTES % 8.7 % (4.4-11.3); NEUTROPHILS # (AUTO) 7.9 (2.1-6.9); NEUTROPHILS % 69.1 % (38.7-80.0); PLATELET COUNT 271 x10e3/uL (140-360); RED BLOOD COUNT 4.37 x10e6/uL (4.3-5.7); RED CELL DISTRIBUTION WIDTH 17.3 % (11.7-14.4)
[2020-12-27 07:12] LABS: ANION GAP 16.7 mmol/L (8-16); CALCIUM 8.3 mg/dL (8.4-10.2); CREATININE, SERUM 0.81 mg/dL (0.72-1.25); POTASSIUM 4.7 mmol/L (3.5-5.1)
[2020-12-27] MEDS: ACETYLCYSTEINE 200 MG/ML 4ML VIAL INH SCH (07:28)
[2020-12-27] MEDS ORDERED: FUROSEMIDE 20 MG TAB PO SCH (09:00)
[2020-12-27] MEDS: AMIODARONE HCL 200 MG TAB PO SCH ×2 (09:32→16:53)
[2020-12-27] MEDS ORDERED: DIGOXIN INJ 0.25 MG/ML 2 ML AMP IV ONE (11:30)
[2020-12-27] MEDS: FUROSEMIDE INJ 100 MG in SODIUM CHLORIDE 0.9% 100 ML 90 ML IV SCH ×2 (12:04→22:48)
[2020-12-28] VITALS (26 sets, daily range): BP systolic 89–117; BP diastolic 43–71
[2020-12-28] MEDS: LEVALBUTEROL HCL SOLN NEBU 0.63 MG/3 ML NEB INH SCH ×4 (02:15→19:30)
[2020-12-28] MEDS: LEVOTHYROXINE SODIUM 125 MCG TAB PO SCH (05:43)
[2020-12-28] MEDS: CEFEPIME 1 GM in SODIUM CHLORIDE 0.9% 50ML 50 ML IV SCH ×3 (05:43→22:38)
[2020-12-28] MEDS: NYSTATIN 15 GM POWDER UD BTL TOP SCH ×2 (06:00→19:03)
[2020-12-28] MEDS: FUROSEMIDE INJ 100 MG in SODIUM CHLORIDE 0.9% 100 ML 90 ML IV SCH ×2 (08:13→19:03)
[2020-12-28] MEDS: AMIODARONE HCL 200 MG TAB PO SCH ×2 (08:13→18:11)
[2020-12-28] MEDS ORDERED: SODIUM CHLORIDE 0.9% 50ML 50 ML ONE (13:15)
[2020-12-28 13:25] LABS: BODY FLUID APPEARANCE CLOUDY; BODY FLUID COLOR YELLOW; BODY FLUID TYPE PLEURAL
[2020-12-28 13:26] LABS: RBC,BODY FLUID 12000 cells/uL; WBC,BODY FLUID 2453 cells/uL
[2020-12-28 14:28] LABS: BASOPHILS # (AUTO) 0.2 (0.0-0.1); BASOPHILS % 1.2 % (0.0-1.0); EOSINOPHILS # (AUTO) 0.7 (0.0-0.4); EOSINOPHILS % 5.7 % (0.0-6.0); HEMATOCRIT 42.3 % (38.2-49.6); HEMOGLOBIN 12.8 g/dL (14.0-18.0); LYMPHOCYTES # (AUTO) 1.8 (1.0-3.2); LYMPHOCYTES % 14.1 % (18.0-39.1); MEAN CORPUSCULAR HEMOGLOBIN 28.1 pg (28-32); MEAN CORPUSCULAR HGB CONC 30.3 g/dL (31-35); MEAN CORPUSCULAR VOLUME 92.8 fL (81-99); MONOCYTES # (AUTO) 1.6 (0.2-0.8); NEUTROPHILS # (AUTO) 8.4 (2.1-6.9); NEUTROPHILS % 64.8 % (38.7-80.0); PLATELET COUNT 278 x10e3/uL (140-360); RED BLOOD COUNT 4.56 x10e6/uL (4.3-5.7); RED CELL DISTRIBUTION WIDTH 17.2 % (11.7-14.4)
[2020-12-28 14:45] LABS: ANION GAP 18.5 mmol/L (8-16); CALCIUM 8.6 mg/dL (8.4-10.2); CREATININE, SERUM 1.05 mg/dL (0.72-1.25); POTASSIUM 4.5 mmol/L (3.5-5.1)
[2020-12-28 16:10] LABS: EOSINOPHILS,BODY FLUID 6 %; LYMPHOCYTES,BODY FLUID 20 %; MONO/MACROPHG,BODY FLUID 12 %; OTHER CELLS,BODY FLUID 18 %
[2020-12-28 16:15] LABS: NEUTROPHILS,BODY FLUID 44 %
[2020-12-29] VITALS (25 sets, daily range): BP systolic 92–126; BP diastolic 46–86
[2020-12-29] MEDS: LEVALBUTEROL HCL SOLN NEBU 0.63 MG/3 ML NEB INH SCH ×4 (02:10→19:32)
[2020-12-29 05:14] LABS: BASOPHILS # (AUTO) 0.1 (0.0-0.1); BASOPHILS % 1.2 % (0.0-1.0); EOSINOPHILS # (AUTO) 0.5 (0.0-0.4); EOSINOPHILS % 4.5 % (0.0-6.0); HEMATOCRIT 39.7 % (38.2-49.6); HEMOGLOBIN 12.1 g/dL (14.0-18.0); LYMPHOCYTES # (AUTO) 1.6 (1.0-3.2); LYMPHOCYTES % 13.8 % (18.0-39.1); MEAN CORPUSCULAR HEMOGLOBIN 27.9 pg (28-32); MEAN CORPUSCULAR HGB CONC 30.5 g/dL (31-35); MEAN CORPUSCULAR VOLUME 91.7 fL (81-99); MONOCYTES # (AUTO) 1.3 (0.2-0.8); MONOCYTES % 11.7 % (4.4-11.3); NEUTROPHILS # (AUTO) 7.5 (2.1-6.9); NEUTROPHILS % 66.9 % (38.7-80.0); PLATELET COUNT 315 x10e3/uL (140-360); RED BLOOD COUNT 4.33 x10e6/uL (4.3-5.7); RED CELL DISTRIBUTION WIDTH 16.8 % (11.7-14.4)
[2020-12-29 05:40] LABS: ANION GAP 16.2 mmol/L (8-16); CALCIUM 8.8 mg/dL (8.4-10.2); CREATININE, SERUM 1.03 mg/dL (0.72-1.25); POTASSIUM 3.2 mmol/L (3.5-5.1)
[2020-12-29] MEDS: LEVOTHYROXINE SODIUM 125 MCG TAB PO SCH (05:44)
[2020-12-29] MEDS: CEFEPIME 1 GM in SODIUM CHLORIDE 0.9% 50ML 50 ML IV SCH ×3 (05:44→21:18)
[2020-12-29] MEDS: FUROSEMIDE INJ 100 MG in SODIUM CHLORIDE 0.9% 100 ML 90 ML IV SCH (05:44)
[2020-12-29] MEDS: NYSTATIN 15 GM POWDER UD BTL TOP SCH ×2 (05:47→17:02)
[2020-12-29] MEDS: KCL 20 MEQ PACKET/ ORAL SOLN NG PRN (08:35)
[2020-12-29] MEDS: AMIODARONE HCL 200 MG TAB PO SCH ×2 (08:36→15:11)
[2020-12-29] MEDS ORDERED: DIATRIZOATE MEGL/DIATRIZOA SOD 30 ML BTL PO ONE (10:05)
[2020-12-29] MEDS ORDERED: POTASSIUM CHLORIDE 20MEQ/15ML UDC PEG ONE (13:00)
[2020-12-29] MEDS ORDERED: KCL 20 MEQ PACKET/ ORAL SOLN PEG ONE (13:00)
[2020-12-29] MEDS: MUPIROCIN 2% OINT 22 GM TUBE TOP SCH (16:13)
[2020-12-29] MEDS: APIXABAN 5 MG TABLET PO SCH (17:00)
[2020-12-29] MEDS: FUROSEMIDE INJ 10 MG/ML 4 ML VIAL IV SCH (21:18)
[2020-12-30] VITALS (27 sets, daily range): BP systolic 99–115; BP diastolic 48–83
[2020-12-30] MEDS: LEVALBUTEROL HCL SOLN NEBU 0.63 MG/3 ML NEB INH SCH ×4 (02:50→19:20)
[2020-12-30] MEDS: NYSTATIN 15 GM POWDER UD BTL TOP SCH (05:14)
[2020-12-30] MEDS: LEVOTHYROXINE SODIUM 125 MCG TAB PO SCH (05:14)
[2020-12-30] MEDS: CEFEPIME 1 GM in SODIUM CHLORIDE 0.9% 50ML 50 ML IV SCH ×3 (05:20→21:38)
[2020-12-30 06:24] LABS: BASOPHILS # (AUTO) 0.2 (0.0-0.1); BASOPHILS % 0.9 % (0.0-1.0); EOSINOPHILS # (AUTO) 0.4 (0.0-0.4); EOSINOPHILS % 2.3 % (0.0-6.0); HEMATOCRIT 39.9 % (38.2-49.6); LYMPHOCYTES # (AUTO) 2.1 (1.0-3.2); LYMPHOCYTES % 13.4 % (18.0-39.1); MEAN CORPUSCULAR HEMOGLOBIN 27.6 pg (28-32); MEAN CORPUSCULAR HGB CONC 30.1 g/dL (31-35); MEAN CORPUSCULAR VOLUME 91.7 fL (81-99); MONOCYTES # (AUTO) 1.7 (0.2-0.8); MONOCYTES % 10.9 % (4.4-11.3); NEUTROPHILS # (AUTO) 11.2 (2.1-6.9); NEUTROPHILS % 70.3 % (38.7-80.0); PLATELET COUNT 349 x10e3/uL (140-360); RED BLOOD COUNT 4.35 x10e6/uL (4.3-5.7); RED CELL DISTRIBUTION WIDTH 17.1 % (11.7-14.4)
[2020-12-30 06:44] LABS: ANION GAP 16.5 mmol/L (8-16); CALCIUM 9.1 mg/dL (8.4-10.2); CREATININE, SERUM 1.19 mg/dL (0.72-1.25); POTASSIUM 3.5 mmol/L (3.5-5.1)
[2020-12-30] MEDS ORDERED: SODIUM CHLORIDE 0.9% 1000ML 1,000 ML ONE (08:02)
[2020-12-30] MEDS: AMIODARONE HCL 200 MG TAB PO SCH ×2 (09:00→17:00)
[2020-12-30] MEDS: APIXABAN 5 MG TABLET PO SCH ×2 (09:00→17:00)
[2020-12-30] MEDS: MUPIROCIN 2% OINT 22 GM TUBE TOP SCH ×2 (09:33→17:18)
[2020-12-30] MEDS: FUROSEMIDE INJ 10 MG/ML 4 ML VIAL IV SCH ×2 (10:01→21:38)
[2020-12-30] MEDS ORDERED: MIDAZOLAM HCL 2 MG/2 ML VIAL ONE (12:12)
[2020-12-30] MEDS ORDERED: DEXTROSE 5% 1,000 ML IV SCH (12:30)
[2020-12-30] MEDS ORDERED: LIDOCAINE HCL 2% LOCAL INJ 5 ML SDV VIAL INJ ONE (12:53)
[2020-12-30] MEDS ORDERED: POVIDONE IODINE 0.05% 0.05 % ML PO ONE (12:53)
[2020-12-30] MEDS ORDERED: PROPOFOL IV EMULSION 10 MG/ML 20 ML VIAL ONE (12:53)
[2020-12-30] MEDS: DEXTROSE 5% 1,000 ML IV SCH (15:04)
[2020-12-30] MEDS ORDERED: ACETAMINOPHEN 1000 MG/100 ML IV PRN (23:45)
[2020-12-31] VITALS (24 sets, daily range): BP systolic 80–134; BP diastolic 43–98
[2020-12-31] MEDS: LEVALBUTEROL HCL SOLN NEBU 0.63 MG/3 ML NEB INH SCH ×4 (02:45→19:50)
[2020-12-31] MEDS: DEXTROSE 5% 1,000 ML IV SCH ×3 (03:39→19:56)
[2020-12-31 05:06] LABS: BASOPHILS # (AUTO) 0.2 (0.0-0.1); BASOPHILS % 1.1 % (0.0-1.0); EOSINOPHILS # (AUTO) 0.6 (0.0-0.4); EOSINOPHILS % 3.9 % (0.0-6.0); HEMATOCRIT 36.7 % (38.2-49.6); HEMOGLOBIN 11.2 g/dL (14.0-18.0); LYMPHOCYTES % 13.9 % (18.0-39.1); MEAN CORPUSCULAR HEMOGLOBIN 28.1 pg (28-32); MEAN CORPUSCULAR HGB CONC 30.5 g/dL (31-35); MONOCYTES # (AUTO) 1.6 (0.2-0.8); MONOCYTES % 11.5 % (4.4-11.3); NEUTROPHILS # (AUTO) 9.4 (2.1-6.9); NEUTROPHILS % 67.1 % (38.7-80.0); PLATELET COUNT 325 x10e3/uL (140-360); RED BLOOD COUNT 3.99 x10e6/uL (4.3-5.7); RED CELL DISTRIBUTION WIDTH 17.3 % (11.7-14.4)
[2020-12-31] MEDS: LEVOTHYROXINE SODIUM 125 MCG TAB PO SCH (05:21)
[2020-12-31] MEDS: CEFEPIME 1 GM in SODIUM CHLORIDE 0.9% 50ML 50 ML IV SCH ×3 (05:50→21:32)
[2020-12-31 05:58] LABS: ANION GAP 16.1 mmol/L (8-16); CALCIUM 8.9 mg/dL (8.4-10.2); CREATININE, SERUM 1.39 mg/dL (0.72-1.25); POTASSIUM 3.1 mmol/L (3.5-5.1)
[2020-12-31] MEDS: FUROSEMIDE INJ 10 MG/ML 4 ML VIAL IV SCH (08:32)
[2020-12-31] MEDS: MUPIROCIN 2% OINT 22 GM TUBE TOP SCH ×2 (08:32→16:55)
[2020-12-31] MEDS: APIXABAN 5 MG TABLET PO SCH ×2 (08:32→16:54)
[2020-12-31] MEDS: KCL 20 MEQ PACKET/ ORAL SOLN NG PRN (10:11)
[2021-01-01] VITALS (23 sets, daily range): BP systolic 85–119; BP diastolic 47–75
[2021-01-01] MEDS: LEVALBUTEROL HCL SOLN NEBU 0.63 MG/3 ML NEB INH SCH ×4 (00:10→19:10)
[2021-01-01] MEDS: ACETAMINOPHEN 325 MG/10 ML UDC NG PRN (02:38)
[2021-01-01] MEDS: CEFEPIME 1 GM in SODIUM CHLORIDE 0.9% 50ML 50 ML IV SCH ×3 (05:45→22:03)
[2021-01-01] MEDS: DEXTROSE 5% 1,000 ML IV SCH ×2 (05:45→22:03)
[2021-01-01] MEDS: LEVOTHYROXINE SODIUM 125 MCG TAB PO SCH (06:56)
[2021-01-01] MEDS: MUPIROCIN 2% OINT 22 GM TUBE TOP SCH ×2 (08:08→17:41)
[2021-01-01] MEDS: APIXABAN 5 MG TABLET PO SCH ×2 (08:08→17:41)
[2021-01-01] MEDS: FUROSEMIDE INJ 10 MG/ML 4 ML VIAL IV SCH (08:08)
[2021-01-02] VITALS (24 sets, daily range): BP systolic 88–111; BP diastolic 49–73
[2021-01-02] MEDS: LEVALBUTEROL HCL SOLN NEBU 0.63 MG/3 ML NEB INH SCH ×4 (00:30→19:55)
[2021-01-02] MEDS: MUPIROCIN 2% OINT 22 GM TUBE TOP SCH ×2 (00:49→16:20)
[2021-01-02 05:01] LABS: BASOPHILS # (AUTO) 0.1 (0.0-0.1); BASOPHILS % 0.6 % (0.0-1.0); EOSINOPHILS % 6.3 % (0.0-6.0); HEMATOCRIT 32.7 % (38.2-49.6); HEMOGLOBIN 10.3 g/dL (14.0-18.0); LYMPHOCYTES % 12.7 % (18.0-39.1); MEAN CORPUSCULAR HEMOGLOBIN 27.8 pg (28-32); MEAN CORPUSCULAR HGB CONC 31.5 g/dL (31-35); MEAN CORPUSCULAR VOLUME 88.4 fL (81-99); MONOCYTES # (AUTO) 1.3 (0.2-0.8); MONOCYTES % 8.2 % (4.4-11.3); NEUTROPHILS # (AUTO) 10.9 (2.1-6.9); NEUTROPHILS % 67.8 % (38.7-80.0); PLATELET COUNT 295 x10e3/uL (140-360); RED CELL DISTRIBUTION WIDTH 16.7 % (11.7-14.4)
[2021-01-02] MEDS: LEVOTHYROXINE SODIUM 125 MCG TAB PO SCH (05:17)
[2021-01-02] MEDS: CEFEPIME 1 GM in SODIUM CHLORIDE 0.9% 50ML 50 ML IV SCH ×3 (05:17→22:00)
[2021-01-02 05:33] LABS: ANION GAP 12.7 mmol/L (8-16); CALCIUM 8.1 mg/dL (8.4-10.2); CREATININE, SERUM 0.99 mg/dL (0.72-1.25)
[2021-01-02 06:07] LABS: POTASSIUM 2.7 mmol/L (3.5-5.1)
[2021-01-02] MEDS: KCL 20 MEQ PACKET/ ORAL SOLN NG PRN (06:11)
[2021-01-02] MEDS: FUROSEMIDE INJ 10 MG/ML 4 ML VIAL IV SCH (07:46)
[2021-01-02] MEDS: DEXTROSE 5% 1,000 ML IV SCH (08:37)
[2021-01-02] MEDS: APIXABAN 5 MG TABLET PO SCH ×2 (08:47→16:20)
[2021-01-02] MEDS ORDERED: DIPHENOXYLATE/ATROPINE TAB PO ONE ×2 (09:00)
[2021-01-02] MEDS ORDERED: CHOLESTYRAMINE 4 GM PACKET PO PRN (09:30)
[2021-01-02] MEDS: ACETYLCYSTEINE 20% INHAL SOLN 30 ML VIAL INH SCH ×2 (11:00→19:55)
[2021-01-03] VITALS (25 sets, daily range): BP systolic 81–111; BP diastolic 43–73
[2021-01-03] MEDS: LEVALBUTEROL HCL SOLN NEBU 0.63 MG/3 ML NEB INH SCH ×4 (00:20→19:45)
[2021-01-03 06:00] LABS: BASOPHILS # (AUTO) 0.1 (0.0-0.1); BASOPHILS % 0.7 % (0.0-1.0); EOSINOPHILS % 6.6 % (0.0-6.0); HEMATOCRIT 32.9 % (38.2-49.6); HEMOGLOBIN 10.2 g/dL (14.0-18.0); LYMPHOCYTES # (AUTO) 1.6 (1.0-3.2); LYMPHOCYTES % 10.6 % (18.0-39.1); MEAN CORPUSCULAR HEMOGLOBIN 27.9 pg (28-32); MEAN CORPUSCULAR VOLUME 90.1 fL (81-99); MONOCYTES % 6.6 % (4.4-11.3); NEUTROPHILS % 72.6 % (38.7-80.0); PLATELET COUNT 333 x10e3/uL (140-360); RED BLOOD COUNT 3.65 x10e6/uL (4.3-5.7); RED CELL DISTRIBUTION WIDTH 17.1 % (11.7-14.4)
[2021-01-03] MEDS: CEFEPIME 1 GM in SODIUM CHLORIDE 0.9% 50ML 50 ML IV SCH ×3 (06:00→23:39)
[2021-01-03 06:28] LABS: ANION GAP 11.2 mmol/L (8-16); CALCIUM 8.5 mg/dL (8.4-10.2); CREATININE, SERUM 0.86 mg/dL (0.72-1.25); MAGNESIUM 1.9 MG/DL (1.3-2.1); POTASSIUM 3.2 mmol/L (3.5-5.1)
[2021-01-03] MEDS: LEVOTHYROXINE SODIUM 75 MCG TAB PO SCH (06:49)
[2021-01-03] MEDS: ACETYLCYSTEINE 20% INHAL SOLN 30 ML VIAL INH SCH ×2 (07:20→19:45)
[2021-01-03] MEDS: FUROSEMIDE INJ 10 MG/ML 4 ML VIAL IV SCH (07:50)
[2021-01-03 11:13] LABS: % IRON SATURATION 40 % (15-50); IRON 41 ug/dL (65-175); TOTAL IRON BINDING CAPACITY 102 ug/dL (261-478); TRANSFERRIN 73 mg/dL (174-364)
[2021-01-03] MEDS: MUPIROCIN 2% OINT 22 GM TUBE TOP SCH ×2 (11:57→17:16)
[2021-01-03] MEDS: APIXABAN 5 MG TABLET PO SCH ×2 (12:57→17:43)
[2021-01-03] MEDS: KCL 20 MEQ PACKET/ ORAL SOLN NG PRN (14:44)
[2021-01-03] MEDS: DIPHENHYDRAMINE HCL INJ 50 MG/ML VIAL IV PRN (23:39)
[2021-01-04] VITALS (16 sets, daily range): BP systolic 86–97; BP diastolic 45–61
[2021-01-04] MEDS: LEVALBUTEROL HCL SOLN NEBU 0.63 MG/3 ML NEB INH SCH ×2 (00:05→07:06)
[2021-01-04 04:50] LABS: BASOPHILS # (AUTO) 0.1 (0.0-0.1); BASOPHILS % 0.5 % (0.0-1.0); EOSINOPHILS # (AUTO) 0.6 (0.0-0.4); EOSINOPHILS % 5.2 % (0.0-6.0); HEMATOCRIT 24.3 % (38.2-49.6); HEMOGLOBIN 7.5 g/dL (14.0-18.0); LYMPHOCYTES # (AUTO) 1.6 (1.0-3.2); LYMPHOCYTES % 14.5 % (18.0-39.1); MEAN CORPUSCULAR HEMOGLOBIN 28.3 pg (28-32); MEAN CORPUSCULAR HGB CONC 30.9 g/dL (31-35); MEAN CORPUSCULAR VOLUME 91.7 fL (81-99); MONOCYTES # (AUTO) 0.8 (0.2-0.8); MONOCYTES % 7.6 % (4.4-11.3); NEUTROPHILS # (AUTO) 7.5 (2.1-6.9); NEUTROPHILS % 68.2 % (38.7-80.0); PLATELET COUNT 257 x10e3/uL (140-360); RED BLOOD COUNT 2.65 x10e6/uL (4.3-5.7); RED CELL DISTRIBUTION WIDTH 17.2 % (11.7-14.4)
[2021-01-04 05:18] LABS: ANION GAP 11.8 mmol/L (8-16); CALCIUM 8.8 mg/dL (8.4-10.2); CREATININE, SERUM 0.96 mg/dL (0.72-1.25); POTASSIUM 3.8 mmol/L (3.5-5.1)
[2021-01-04] MEDS: LEVOTHYROXINE SODIUM 75 MCG TAB PO SCH (05:57)
[2021-01-04] MEDS: CEFEPIME 1 GM in SODIUM CHLORIDE 0.9% 50ML 50 ML IV SCH ×3 (05:57→21:51)
[2021-01-04] MEDS: ACETYLCYSTEINE 20% INHAL SOLN 30 ML VIAL INH SCH ×2 (07:06→19:00)
[2021-01-04] MEDS: MUPIROCIN 2% OINT 22 GM TUBE TOP SCH ×2 (08:32→16:39)
[2021-01-04] MEDS: FUROSEMIDE INJ 10 MG/ML 4 ML VIAL IV SCH (08:32)
[2021-01-04] MEDS: APIXABAN 5 MG TABLET PO SCH ×2 (08:32→16:39)
[2021-01-04] MEDS: IRON SUCROSE 100 MG in SODIUM CHLORIDE 0.9% 100 ML 100 ML IV SCH (09:35)
[2021-01-05] VITALS (8 sets, daily range): BP systolic 88–134; BP diastolic 45–79
[2021-01-05] MEDS: LEVOTHYROXINE SODIUM 75 MCG TAB PO SCH (06:02)
[2021-01-05] MEDS: CEFEPIME 1 GM in SODIUM CHLORIDE 0.9% 50ML 50 ML IV SCH ×2 (06:02→14:10)
[2021-01-05 06:47] LABS: BASOPHILS # (AUTO) 0.1 (0.0-0.1); BASOPHILS % 0.8 % (0.0-1.0); EOSINOPHILS # (AUTO) 0.9 (0.0-0.4); EOSINOPHILS % 6.5 % (0.0-6.0); HEMATOCRIT 34.3 % (38.2-49.6); HEMOGLOBIN 10.5 g/dL (14.0-18.0); LYMPHOCYTES % 13.7 % (18.0-39.1); MEAN CORPUSCULAR HEMOGLOBIN 27.9 pg (28-32); MEAN CORPUSCULAR HGB CONC 30.6 g/dL (31-35); MEAN CORPUSCULAR VOLUME 91.2 fL (81-99); MONOCYTES # (AUTO) 1.1 (0.2-0.8); MONOCYTES % 7.5 % (4.4-11.3); NEUTROPHILS # (AUTO) 9.8 (2.1-6.9); NEUTROPHILS % 68.8 % (38.7-80.0); PLATELET COUNT 343 x10e3/uL (140-360); RED BLOOD COUNT 3.76 x10e6/uL (4.3-5.7); RED CELL DISTRIBUTION WIDTH 17.3 % (11.7-14.4)
[2021-01-05 07:08] LABS: ANION GAP 9.5 mmol/L (8-16); CALCIUM 8.7 mg/dL (8.4-10.2); CREATININE, SERUM 0.99 mg/dL (0.72-1.25); POTASSIUM 3.5 mmol/L (3.5-5.1)
[2021-01-05] MEDS: IRON SUCROSE 100 MG in SODIUM CHLORIDE 0.9% 100 ML 100 ML IV SCH (08:24)
[2021-01-05] MEDS: FUROSEMIDE INJ 10 MG/ML 4 ML VIAL IV SCH (08:24)
[2021-01-05] MEDS: APIXABAN 5 MG TABLET PO SCH ×2 (08:24→16:25)
[2021-01-05] MEDS: MUPIROCIN 2% OINT 22 GM TUBE TOP SCH (08:24)
[2021-01-05] MEDS: KCL 20 MEQ PACKET/ ORAL SOLN NG PRN (14:20)
[2021-01-05] MEDS ORDERED: SIMETHICONE 80 MG CHEW PO PRN (18:00)
[2021-01-06] VITALS (8 sets, daily range): BP systolic 83–103; BP diastolic 37–66
[2021-01-06] MEDS: DIPHENHYDRAMINE HCL INJ 50 MG/ML VIAL IV PRN (01:01)
[2021-01-06] MEDS: LEVOTHYROXINE SODIUM 75 MCG TAB PO SCH (05:58)
[2021-01-06] MEDS: APIXABAN 5 MG TABLET PO SCH ×2 (08:08→17:32)
[2021-01-06] MEDS: FUROSEMIDE INJ 10 MG/ML 4 ML VIAL IV SCH (08:08)
[2021-01-06] MEDS: IRON SUCROSE 100 MG in SODIUM CHLORIDE 0.9% 100 ML 100 ML IV SCH (08:08)
[2021-01-06] MEDS: KCL 20 MEQ PACKET/ ORAL SOLN NG PRN (14:19)
[2021-01-06] MEDS: ACETYLCYSTEINE 20% INHAL SOLN 30 ML VIAL INH SCH (19:20)
[2021-01-07] VITALS (10 sets, daily range): BP systolic 94–112; BP diastolic 44–93
[2021-01-07 05:23] LABS: BASOPHILS # (AUTO) 0.2 (0.0-0.1); BASOPHILS % 0.9 % (0.0-1.0); EOSINOPHILS # (AUTO) 1.2 (0.0-0.4); EOSINOPHILS % 7.2 % (0.0-6.0); HEMATOCRIT 35.2 % (38.2-49.6); HEMOGLOBIN 10.6 g/dL (14.0-18.0); LYMPHOCYTES # (AUTO) 2.9 (1.0-3.2); LYMPHOCYTES % 17.9 % (18.0-39.1); MEAN CORPUSCULAR HEMOGLOBIN 27.9 pg (28-32); MEAN CORPUSCULAR HGB CONC 30.1 g/dL (31-35); MEAN CORPUSCULAR VOLUME 92.6 fL (81-99); MONOCYTES # (AUTO) 1.3 (0.2-0.8); MONOCYTES % 7.9 % (4.4-11.3); NEUTROPHILS # (AUTO) 10.4 (2.1-6.9); NEUTROPHILS % 63.7 % (38.7-80.0); PLATELET COUNT 389 x10e3/uL (140-360); RED CELL DISTRIBUTION WIDTH 17.9 % (11.7-14.4)
[2021-01-07 06:00] LABS: ANION GAP 13.5 mmol/L (8-16); CALCIUM 8.9 mg/dL (8.4-10.2); CREATININE, SERUM 0.93 mg/dL (0.72-1.25); POTASSIUM 4.5 mmol/L (3.5-5.1)
[2021-01-07] MEDS: LEVOTHYROXINE SODIUM 75 MCG TAB PO SCH (06:25)
[2021-01-07] MEDS: ACETYLCYSTEINE 20% INHAL SOLN 30 ML VIAL INH SCH ×2 (07:00→19:00)
[2021-01-07] MEDS: FUROSEMIDE INJ 10 MG/ML 4 ML VIAL IV SCH (08:39)
[2021-01-07] MEDS: APIXABAN 5 MG TABLET PO SCH ×2 (08:39→17:17)
[2021-01-07] MEDS: IRON SUCROSE 100 MG in SODIUM CHLORIDE 0.9% 100 ML 100 ML IV SCH (08:39)
[2021-01-08] MEDS: DIPHENHYDRAMINE HCL INJ 50 MG/ML VIAL IV PRN (03:12)
[2021-01-08 04:00] VITALS: BP 108/62
[2021-01-08 04:49] LABS: BASOPHILS # (AUTO) 0.2 (0.0-0.1); BASOPHILS % 0.9 % (0.0-1.0); EOSINOPHILS # (AUTO) 0.9 (0.0-0.4); EOSINOPHILS % 4.6 % (0.0-6.0); HEMATOCRIT 37.4 % (38.2-49.6); HEMOGLOBIN 11.3 g/dL (14.0-18.0); LYMPHOCYTES # (AUTO) 2.9 (1.0-3.2); LYMPHOCYTES % 15.9 % (18.0-39.1); MEAN CORPUSCULAR HEMOGLOBIN 28.4 pg (28-32); MEAN CORPUSCULAR HGB CONC 30.2 g/dL (31-35); MONOCYTES # (AUTO) 1.3 (0.2-0.8); MONOCYTES % 6.9 % (4.4-11.3); NEUTROPHILS # (AUTO) 12.9 (2.1-6.9); NEUTROPHILS % 69.7 % (38.7-80.0); PLATELET COUNT 395 x10e3/uL (140-360); RED BLOOD COUNT 3.98 x10e6/uL (4.3-5.7)
[2021-01-08 05:08] LABS: ANION GAP 16.6 mmol/L (8-16); CREATININE, SERUM 1.04 mg/dL (0.72-1.25); POTASSIUM 4.6 mmol/L (3.5-5.1)
[2021-01-08] MEDS: LEVOTHYROXINE SODIUM 75 MCG TAB PO SCH (05:21)
[2021-01-08] MEDS: ACETYLCYSTEINE 20% INHAL SOLN 30 ML VIAL INH SCH ×2 (07:00→19:00)
[2021-01-08 07:35] VITALS: BP 108/71
[2021-01-08 08:18] VITALS: BP 108/71
[2021-01-08] MEDS: APIXABAN 5 MG TABLET PO SCH ×2 (09:50→16:54)
[2021-01-08] MEDS: FUROSEMIDE INJ 10 MG/ML 4 ML VIAL IV SCH (09:50)
[2021-01-08] MEDS: IRON SUCROSE 100 MG in SODIUM CHLORIDE 0.9% 100 ML 100 ML IV SCH (11:00)
[2021-01-08] MEDS ORDERED: SODIUM CHLORIDE 0.9% 250ML 250 ML ONE (11:36)
[2021-01-08 11:44] VITALS: BP 97/66
[2021-01-08] MEDS: LEVALBUTEROL HCL SOLN NEBU 0.63 MG/3 ML NEB INH SCH ×2 (13:00→19:25)
[2021-01-08] MEDS ORDERED: DOCUSATE SODIUM LIQD 100 MG/10 ML UDC NG ONE (14:45)
[2021-01-08 20:00] VITALS: BP 109/72
[2021-01-08 22:12] VITALS: BP 109/72
[2021-01-09] VITALS (7 sets, daily range): BP systolic 100–131; BP diastolic 59–68
[2021-01-09] MEDS: LEVALBUTEROL HCL SOLN NEBU 0.63 MG/3 ML NEB INH SCH ×4 (00:50→19:55)
[2021-01-09] MEDS: ACETAMINOPHEN 325 MG/10 ML UDC NG PRN ×2 (05:15→23:34)
[2021-01-09 05:26] LABS: BASOPHILS # (AUTO) 0.1 (0.0-0.1); BASOPHILS % 0.7 % (0.0-1.0); EOSINOPHILS # (AUTO) 0.8 (0.0-0.4); HEMATOCRIT 34.1 % (38.2-49.6); HEMOGLOBIN 10.5 g/dL (14.0-18.0); LYMPHOCYTES # (AUTO) 2.5 (1.0-3.2); LYMPHOCYTES % 15.3 % (18.0-39.1); MEAN CORPUSCULAR HEMOGLOBIN 28.3 pg (28-32); MEAN CORPUSCULAR HGB CONC 30.8 g/dL (31-35); MEAN CORPUSCULAR VOLUME 91.9 fL (81-99); MONOCYTES # (AUTO) 1.2 (0.2-0.8); MONOCYTES % 7.6 % (4.4-11.3); NEUTROPHILS # (AUTO) 11.3 (2.1-6.9); NEUTROPHILS % 69.3 % (38.7-80.0); PLATELET COUNT 395 x10e3/uL (140-360); RED BLOOD COUNT 3.71 x10e6/uL (4.3-5.7); RED CELL DISTRIBUTION WIDTH 17.9 % (11.7-14.4)
[2021-01-09] MEDS: LEVOTHYROXINE SODIUM 75 MCG TAB PO SCH (05:45)
[2021-01-09 06:00] LABS: ANION GAP 12.9 mmol/L (8-16); CALCIUM 8.5 mg/dL (8.4-10.2); CREATININE, SERUM 1.07 mg/dL (0.72-1.25); POTASSIUM 4.9 mmol/L (3.5-5.1)
[2021-01-09] MEDS: ACETYLCYSTEINE 20% INHAL SOLN 30 ML VIAL INH SCH ×2 (07:00→19:00)
[2021-01-09] MEDS: FUROSEMIDE INJ 10 MG/ML 4 ML VIAL IV SCH (07:30)
[2021-01-09] MEDS: IRON SUCROSE 100 MG in SODIUM CHLORIDE 0.9% 100 ML 100 ML IV SCH (09:00)
[2021-01-09] MEDS: APIXABAN 5 MG TABLET PO SCH ×2 (09:00→17:00)
[2021-01-09] MEDS: DIPHENHYDRAMINE HCL INJ 50 MG/ML VIAL IV PRN (23:34)
[2021-01-10] VITALS (7 sets, daily range): BP systolic 104–133; BP diastolic 59–80
[2021-01-10] MEDS: LEVALBUTEROL HCL SOLN NEBU 0.63 MG/3 ML NEB INH SCH ×4 (02:20→19:50)
[2021-01-10 05:14] LABS: BASOPHILS # (AUTO) 0.1 (0.0-0.1); EOSINOPHILS % 7.7 % (0.0-6.0); HEMOGLOBIN 11.1 g/dL (14.0-18.0); LYMPHOCYTES # (AUTO) 2.7 (1.0-3.2); LYMPHOCYTES % 20.4 % (18.0-39.1); MEAN CORPUSCULAR HEMOGLOBIN 28.3 pg (28-32); MEAN CORPUSCULAR HGB CONC 30.8 g/dL (31-35); MEAN CORPUSCULAR VOLUME 91.8 fL (81-99); MONOCYTES % 7.6 % (4.4-11.3); NEUTROPHILS # (AUTO) 8.1 (2.1-6.9); NEUTROPHILS % 61.3 % (38.7-80.0); PLATELET COUNT 385 x10e3/uL (140-360); RED BLOOD COUNT 3.92 x10e6/uL (4.3-5.7)
[2021-01-10] MEDS: LEVOTHYROXINE SODIUM 75 MCG TAB PO SCH (05:49)
[2021-01-10 05:57] LABS: ANION GAP 12.5 mmol/L (8-16); CALCIUM 8.8 mg/dL (8.4-10.2); CREATININE, SERUM 1.05 mg/dL (0.72-1.25); POTASSIUM 4.5 mmol/L (3.5-5.1)
[2021-01-10] MEDS: FUROSEMIDE INJ 10 MG/ML 4 ML VIAL IV SCH (07:30)
[2021-01-10] MEDS: ACETYLCYSTEINE 200 MG/ML 4ML VIAL INH SCH ×2 (08:31→19:50)
[2021-01-10] MEDS: APIXABAN 5 MG TABLET PO SCH ×2 (08:56→17:00)
[2021-01-10] MEDS: IRON SUCROSE 100 MG in SODIUM CHLORIDE 0.9% 100 ML 100 ML IV SCH (08:56)
[2021-01-11] VITALS (7 sets, daily range): BP systolic 99–117; BP diastolic 53–62
[2021-01-11] MEDS: LEVALBUTEROL HCL SOLN NEBU 0.63 MG/3 ML NEB INH SCH ×4 (02:10→20:50)
[2021-01-11 05:03] LABS: BASOPHILS # (AUTO) 0.2 (0.0-0.1); BASOPHILS % 0.9 % (0.0-1.0); EOSINOPHILS # (AUTO) 0.7 (0.0-0.4); EOSINOPHILS % 4.2 % (0.0-6.0); HEMATOCRIT 36.1 % (38.2-49.6); HEMOGLOBIN 11.2 g/dL (14.0-18.0); LYMPHOCYTES # (AUTO) 3.2 (1.0-3.2); LYMPHOCYTES % 18.9 % (18.0-39.1); MEAN CORPUSCULAR HEMOGLOBIN 28.4 pg (28-32); MEAN CORPUSCULAR VOLUME 91.6 fL (81-99); MONOCYTES # (AUTO) 1.3 (0.2-0.8); MONOCYTES % 7.7 % (4.4-11.3); NEUTROPHILS # (AUTO) 11.3 (2.1-6.9); NEUTROPHILS % 66.5 % (38.7-80.0); PLATELET COUNT 401 x10e3/uL (140-360); RED BLOOD COUNT 3.94 x10e6/uL (4.3-5.7); RED CELL DISTRIBUTION WIDTH 17.9 % (11.7-14.4)
[2021-01-11 05:20] LABS: ANION GAP 14.5 mmol/L (8-16); CALCIUM 8.8 mg/dL (8.4-10.2); CREATININE, SERUM 1.1 mg/dL (0.72-1.25); POTASSIUM 4.5 mmol/L (3.5-5.1)
[2021-01-11] MEDS: LEVOTHYROXINE SODIUM 75 MCG TAB PO SCH (05:52)
[2021-01-11] MEDS: ACETYLCYSTEINE 200 MG/ML 4ML VIAL INH SCH ×2 (07:15→20:50)
[2021-01-11] MEDS: FUROSEMIDE INJ 10 MG/ML 4 ML VIAL IV SCH (08:30)
[2021-01-11] MEDS: APIXABAN 5 MG TABLET PO SCH ×2 (09:00→17:00)
[2021-01-11] MEDS: IRON SUCROSE 100 MG in SODIUM CHLORIDE 0.9% 100 ML 100 ML IV SCH (10:00)
[2021-01-12] VITALS (8 sets, daily range): BP systolic 93–106; BP diastolic 62–73
[2021-01-12] MEDS: LEVALBUTEROL HCL SOLN NEBU 0.63 MG/3 ML NEB INH SCH ×4 (01:25→19:50)
[2021-01-12] MEDS: LEVOTHYROXINE SODIUM 75 MCG TAB PO SCH (06:11)
[2021-01-12] MEDS: ACETYLCYSTEINE 200 MG/ML 4ML VIAL INH SCH ×2 (07:21→19:50)
[2021-01-12] MEDS: FUROSEMIDE INJ 10 MG/ML 4 ML VIAL IV SCH (09:45)
[2021-01-12] MEDS: IRON SUCROSE 100 MG in SODIUM CHLORIDE 0.9% 100 ML 100 ML IV SCH (09:45)
[2021-01-12] MEDS: APIXABAN 5 MG TABLET PO SCH ×2 (09:45→17:12)
[2021-01-12] MEDS: ACETAMINOPHEN 325 MG/10 ML UDC NG PRN (22:09)
[2021-01-13] VITALS (8 sets, daily range): BP systolic 93–104; BP diastolic 56–64
[2021-01-13] MEDS: LEVOTHYROXINE SODIUM 75 MCG TAB PO SCH (05:04)
[2021-01-13 05:30] LABS: BASOPHILS # (AUTO) 0.1 (0.0-0.1); BASOPHILS % 0.5 % (0.0-1.0); EOSINOPHILS # (AUTO) 0.8 (0.0-0.4); EOSINOPHILS % 5.1 % (0.0-6.0); HEMATOCRIT 30.7 % (38.2-49.6); LYMPHOCYTES # (AUTO) 1.8 (1.0-3.2); MEAN CORPUSCULAR HEMOGLOBIN 28.5 pg (28-32); MEAN CORPUSCULAR HGB CONC 31.3 g/dL (31-35); MEAN CORPUSCULAR VOLUME 91.1 fL (81-99); MONOCYTES # (AUTO) 1.3 (0.2-0.8); MONOCYTES % 7.8 % (4.4-11.3); NEUTROPHILS # (AUTO) 12.4 (2.1-6.9); NEUTROPHILS % 74.6 % (38.7-80.0); PLATELET COUNT 316 x10e3/uL (140-360); RED BLOOD COUNT 3.37 x10e6/uL (4.3-5.7)
[2021-01-13 05:49] LABS: ANION GAP 11.6 mmol/L (8-16); CALCIUM 8.6 mg/dL (8.4-10.2); CREATININE, SERUM 0.98 mg/dL (0.72-1.25); POTASSIUM 3.6 mmol/L (3.5-5.1)
[2021-01-13 05:59] LABS: HEMOGLOBIN 9.6 g/dL (14.0-18.0)
[2021-01-13] MEDS: LEVALBUTEROL HCL SOLN NEBU 0.63 MG/3 ML NEB INH SCH ×3 (07:15→19:47)
[2021-01-13] MEDS: ACETYLCYSTEINE 200 MG/ML 4ML VIAL INH SCH ×2 (07:28→19:47)
[2021-01-13] MEDS: APIXABAN 5 MG TABLET PO SCH ×2 (07:54→16:48)
[2021-01-13] MEDS: FUROSEMIDE INJ 10 MG/ML 4 ML VIAL IV SCH (07:54)
[2021-01-13] MEDS: IRON SUCROSE 100 MG in SODIUM CHLORIDE 0.9% 100 ML 100 ML IV SCH (07:54)
[2021-01-14] VITALS (8 sets, daily range): BP systolic 98–142; BP diastolic 51–85
[2021-01-14] MEDS: LEVALBUTEROL HCL SOLN NEBU 0.63 MG/3 ML NEB INH SCH ×5 (01:01→19:42)
[2021-01-14 06:18] LABS: BASOPHILS # (AUTO) 0.1 (0.0-0.1); BASOPHILS % 0.5 % (0.0-1.0); EOSINOPHILS # (AUTO) 0.6 (0.0-0.4); EOSINOPHILS % 3.9 % (0.0-6.0); HEMATOCRIT 31.3 % (38.2-49.6); HEMOGLOBIN 9.7 g/dL (14.0-18.0); LYMPHOCYTES # (AUTO) 2.1 (1.0-3.2); MEAN CORPUSCULAR HEMOGLOBIN 28.5 pg (28-32); MEAN CORPUSCULAR VOLUME 92.1 fL (81-99); MONOCYTES # (AUTO) 1.2 (0.2-0.8); MONOCYTES % 7.8 % (4.4-11.3); NEUTROPHILS # (AUTO) 10.9 (2.1-6.9); NEUTROPHILS % 72.7 % (38.7-80.0); PLATELET COUNT 337 x10e3/uL (140-360); RED CELL DISTRIBUTION WIDTH 18.1 % (11.7-14.4)
[2021-01-14] MEDS: ACETYLCYSTEINE 200 MG/ML 4ML VIAL INH SCH ×2 (07:00→19:42)
[2021-01-14 07:01] LABS: ANION GAP 13.5 mmol/L (8-16); CALCIUM 8.1 mg/dL (8.4-10.2); CREATININE, SERUM 0.87 mg/dL (0.72-1.25); POTASSIUM 3.5 mmol/L (3.5-5.1)
[2021-01-14] MEDS: LEVOTHYROXINE SODIUM 75 MCG TAB PO SCH (07:24)
[2021-01-14] MEDS: FUROSEMIDE INJ 10 MG/ML 4 ML VIAL IV SCH (07:30)
[2021-01-14] MEDS: IRON SUCROSE 100 MG in SODIUM CHLORIDE 0.9% 100 ML 100 ML IV SCH (09:00)
[2021-01-14] MEDS: LIDOCAINE 4% PATCH TP SCH (09:00)
[2021-01-14] MEDS: APIXABAN 5 MG TABLET PO SCH ×2 (09:00→17:00)
[2021-01-15] VITALS (8 sets, daily range): BP systolic 90–116; BP diastolic 59–73
[2021-01-15] MEDS: LEVALBUTEROL HCL SOLN NEBU 0.63 MG/3 ML NEB INH SCH ×4 (00:45→19:46)
[2021-01-15] MEDS: ACETAMINOPHEN 325 MG/10 ML UDC NG PRN (04:30)
[2021-01-15 05:20] LABS: BASOPHILS # (AUTO) 0.1 (0.0-0.1); BASOPHILS % 0.7 % (0.0-1.0); EOSINOPHILS # (AUTO) 0.7 (0.0-0.4); EOSINOPHILS % 4.9 % (0.0-6.0); HEMATOCRIT 32.8 % (38.2-49.6); LYMPHOCYTES % 13.9 % (18.0-39.1); MEAN CORPUSCULAR HEMOGLOBIN 27.7 pg (28-32); MEAN CORPUSCULAR HGB CONC 30.5 g/dL (31-35); MEAN CORPUSCULAR VOLUME 90.9 fL (81-99); MONOCYTES # (AUTO) 1.3 (0.2-0.8); MONOCYTES % 8.8 % (4.4-11.3); NEUTROPHILS # (AUTO) 10.2 (2.1-6.9); NEUTROPHILS % 70.5 % (38.7-80.0); PLATELET COUNT 372 x10e3/uL (140-360); RED BLOOD COUNT 3.61 x10e6/uL (4.3-5.7)
[2021-01-15] MEDS: LEVOTHYROXINE SODIUM 75 MCG TAB PO SCH (05:25)
[2021-01-15 05:36] LABS: ANION GAP 12.5 mmol/L (8-16); CALCIUM 8.4 mg/dL (8.4-10.2); CREATININE, SERUM 0.85 mg/dL (0.72-1.25); POTASSIUM 3.5 mmol/L (3.5-5.1)
[2021-01-15] MEDS: ACETYLCYSTEINE 200 MG/ML 4ML VIAL INH SCH ×2 (06:55→19:46)
[2021-01-15] MEDS: FUROSEMIDE INJ 10 MG/ML 4 ML VIAL IV SCH ×2 (07:30→13:22)
[2021-01-15] MEDS: LIDOCAINE 4% PATCH TP SCH (09:00)
[2021-01-15] MEDS: APIXABAN 5 MG TABLET PO SCH ×2 (09:00→17:00)
[2021-01-16] VITALS (8 sets, daily range): BP systolic 97–112; BP diastolic 44–73
[2021-01-16] MEDS: LEVALBUTEROL HCL SOLN NEBU 0.63 MG/3 ML NEB INH SCH ×4 (00:50→19:35)
[2021-01-16 06:16] LABS: BASOPHILS # (AUTO) 0.1 (0.0-0.1); BASOPHILS % 0.7 % (0.0-1.0); EOSINOPHILS # (AUTO) 0.5 (0.0-0.4); EOSINOPHILS % 4.1 % (0.0-6.0); HEMATOCRIT 31.2 % (38.2-49.6); HEMOGLOBIN 9.6 g/dL (14.0-18.0); LYMPHOCYTES % 17.4 % (18.0-39.1); MEAN CORPUSCULAR HGB CONC 30.8 g/dL (31-35); MONOCYTES # (AUTO) 1.1 (0.2-0.8); MONOCYTES % 9.7 % (4.4-11.3); NEUTROPHILS # (AUTO) 7.5 (2.1-6.9); NEUTROPHILS % 66.8 % (38.7-80.0); PLATELET COUNT 326 x10e3/uL (140-360); RED BLOOD COUNT 3.43 x10e6/uL (4.3-5.7); RED CELL DISTRIBUTION WIDTH 17.9 % (11.7-14.4)
[2021-01-16] MEDS: LEVOTHYROXINE SODIUM 75 MCG TAB PO SCH (06:25)
[2021-01-16 06:47] LABS: ANION GAP 12.7 mmol/L (8-16); CALCIUM 8.1 mg/dL (8.4-10.2); CREATININE, SERUM 0.9 mg/dL (0.72-1.25); POTASSIUM 3.7 mmol/L (3.5-5.1)
[2021-01-16] MEDS: ACETYLCYSTEINE 200 MG/ML 4ML VIAL INH SCH ×2 (07:31→19:35)
[2021-01-16] MEDS: LIDOCAINE 4% PATCH TP SCH (09:08)
[2021-01-16] MEDS: APIXABAN 5 MG TABLET PO SCH ×2 (09:08→16:44)
[2021-01-16] MEDS ORDERED: FUROSEMIDE INJ 10 MG/ML 2 ML VIAL IV ONE (09:20)
[2021-01-17] VITALS (8 sets, daily range): BP systolic 105–122; BP diastolic 62–77
[2021-01-17] MEDS: DIPHENHYDRAMINE HCL INJ 50 MG/ML VIAL IV PRN (00:42)
[2021-01-17] MEDS: LEVALBUTEROL HCL SOLN NEBU 0.63 MG/3 ML NEB INH SCH ×4 (01:00→19:40)
[2021-01-17] MEDS: LEVOTHYROXINE SODIUM 75 MCG TAB PO SCH (05:12)
[2021-01-17] MEDS: ACETYLCYSTEINE 200 MG/ML 4ML VIAL INH SCH ×2 (08:09→19:40)
[2021-01-17] MEDS: LIDOCAINE 4% PATCH TP SCH (08:59)
[2021-01-17] MEDS: APIXABAN 5 MG TABLET PO SCH ×2 (08:59→17:21)
[2021-01-17] MEDS: FUROSEMIDE INJ 10 MG/ML 4 ML VIAL IV SCH ×2 (08:59→21:22)
[2021-01-17] MEDS ORDERED: FUROSEMIDE INJ 10 MG/ML 4 ML VIAL IV ONE (14:30)
[2021-01-17] MEDS: ACETAMINOPHEN 325 MG/10 ML UDC NG PRN (21:40)
[2021-01-18] VITALS: BP 102/64
[2021-01-18] MEDS: LEVALBUTEROL HCL SOLN NEBU 0.63 MG/3 ML NEB INH SCH ×2 (01:05→06:45)
[2021-01-18] MEDS ORDERED: PREGABALIN 75 MG CAP PO ONE (03:00)
[2021-01-18 04:00] VITALS: BP 177/83
[2021-01-18] MEDS: LEVOTHYROXINE SODIUM 75 MCG TAB PO SCH (05:01)
[2021-01-18 05:29] LABS: BASOPHILS # (AUTO) 0.1 (0.0-0.1); BASOPHILS % 0.8 % (0.0-1.0); EOSINOPHILS # (AUTO) 0.3 (0.0-0.4); EOSINOPHILS % 2.8 % (0.0-6.0); HEMOGLOBIN 9.8 g/dL (14.0-18.0); LYMPHOCYTES # (AUTO) 1.8 (1.0-3.2); LYMPHOCYTES % 18.7 % (18.0-39.1); MEAN CORPUSCULAR HEMOGLOBIN 28.2 pg (28-32); MEAN CORPUSCULAR HGB CONC 30.6 g/dL (31-35); MONOCYTES % 9.6 % (4.4-11.3); NEUTROPHILS # (AUTO) 6.5 (2.1-6.9); NEUTROPHILS % 65.9 % (38.7-80.0); PLATELET COUNT 260 x10e3/uL (140-360); RED BLOOD COUNT 3.48 x10e6/uL (4.3-5.7); RED CELL DISTRIBUTION WIDTH 17.7 % (11.7-14.4)
[2021-01-18 05:47] LABS: ANION GAP 11.5 mmol/L (8-16); CALCIUM 8.3 mg/dL (8.4-10.2); CREATININE, SERUM 0.96 mg/dL (0.72-1.25); POTASSIUM 3.5 mmol/L (3.5-5.1)
[2021-01-18] MEDS: ACETYLCYSTEINE 200 MG/ML 4ML VIAL INH SCH (06:45)
[2021-01-18 07:53] VITALS: BP 114/62
[2021-01-18] MEDS: APIXABAN 5 MG TABLET PO SCH (08:08)
[2021-01-18] MEDS: FUROSEMIDE INJ 10 MG/ML 4 ML VIAL IV SCH (08:08)
[2021-01-18 08:43] VITALS: BP 114/62
[2021-01-18] MEDS ORDERED: PREGABALIN 75 MG CAP PO SCH (09:00)
[2021-01-18] MEDS: LIDOCAINE 4% PATCH TP SCH (09:27)
== END 2021-01-18 11:23 | DRG 3 ==
LOC: ER 16:23 → ERHOLD 17:57 → MED/SURG2 11-22 00:20 → ICU 11-28 21:26 → MED/SURG2 01-07 23:00
PROVIDERS: ADMIT Internal Medicine; ATTEND Internal Medicine
PROC: 0HDKXZZ Extraction of Right Lower Leg Skin, External Approach (ICD-10-PCS; 2020-11-23)
PROC: 0H9KXZZ Drainage of Right Lower Leg Skin, External Approach (ICD-10-PCS; 2020-11-23)
PROC: 0HDNXZZ Extraction of Left Foot Skin, External Approach (ICD-10-PCS; 2020-11-24)
PROC: 0HDRXZZ Extraction of Toe Nail, External Approach (ICD-10-PCS; 2020-11-24)
PROC: 0W9B3ZZ Drainage of Left Pleural Cavity, Percutaneous Approach (ICD-10-PCS; 2020-11-28)
PROC: 3E0436Z Introduction of Nutritional Substance into Central Vein, Percutaneous Approach (ICD-10-PCS; 2020-11-29)
PROC: 0BH17EZ Insertion of Endotracheal Airway into Trachea, Via Natural or Artificial Opening (ICD-10-PCS; principal; 2020-11-30)
PROC: 5A1955Z Respiratory Ventilation, Greater than 96 Consecutive Hours (ICD-10-PCS; 2020-11-30)
PROC: 02HV33Z Insertion of Infusion Device into Superior Vena Cava, Percutaneous Approach (ICD-10-PCS; 2020-11-30)
PROC: 3E043XZ Introduction of Vasopressor into Central Vein, Percutaneous Approach (ICD-10-PCS; 2020-11-30)
PROC: 0B110F4 Bypass Trachea to Cutaneous with Tracheostomy Device, Open Approach (ICD-10-PCS; 2020-12-15)
PROC: 0DH63UZ Insertion of Feeding Device into Stomach, Percutaneous Approach (ICD-10-PCS; 2020-12-20)
PROC: 0DB98ZX Excision of Duodenum, Via Natural or Artificial Opening Endoscopic, Diagnostic (ICD-10-PCS; 2020-12-20)
PROC: 0B21XFZ Change Tracheostomy Device in Trachea, External Approach (ICD-10-PCS; 2020-12-25)
PROC: 0W9B3ZZ Drainage of Left Pleural Cavity, Percutaneous Approach (ICD-10-PCS; 2020-12-26)
PROC: 0W9B3ZZ Drainage of Left Pleural Cavity, Percutaneous Approach (ICD-10-PCS; 2020-12-28)
PROC: 02HV33Z Insertion of Infusion Device into Superior Vena Cava, Percutaneous Approach (ICD-10-PCS; 2020-12-28)
PROC: 0DP63UZ Removal of Feeding Device from Stomach, Percutaneous Approach (ICD-10-PCS; 2020-12-30)
PROC: 0DH63UZ Insertion of Feeding Device into Stomach, Percutaneous Approach (ICD-10-PCS; 2020-12-30)
PROC: 02HV33Z Insertion of Infusion Device into Superior Vena Cava, Percutaneous Approach (ICD-10-PCS; 2021-01-08)
DX: A41.9 Sepsis, unspecified organism (principal); R65.21 Severe sepsis with septic shock; I50.23 Acute on chronic systolic (congestive) heart failure; J18.9 Pneumonia, unspecified organism; I21.A1 Myocardial infarction type 2; J80 Acute respiratory distress syndrome; J69.0 Pneumonitis due to inhalation of food and vomit; L03.115 Cellulitis of right lower limb; E11.52 Type 2 diabetes mellitus with diabetic peripheral angiopathy with gangrene; L02.415 Cutaneous abscess of right lower limb; K94.23 Gastrostomy malfunction; E44.0 Moderate protein-calorie malnutrition; N17.9 Acute kidney failure, unspecified; M86.8X7 Other osteomyelitis, ankle and foot; Z68.1 Body mass index [BMI] 19.9 or less, adult; I82.411 Acute embolism and thrombosis of right femoral vein; I82.431 Acute embolism and thrombosis of right popliteal vein; I82.441 Acute embolism and thrombosis of right tibial vein; B35.1 Tinea unguium; I48.0 Paroxysmal atrial fibrillation; B95.62 Methicillin resistant Staphylococcus aureus infection as the cause of diseases classified elsewhere; Z88.2 Allergy status to sulfonamides; Z79.01 Long term (current) use of anticoagulants; E03.9 Hypothyroidism, unspecified; F32.9 Major depressive disorder, single episode, unspecified; Z90.49 Acquired absence of other specified parts of digestive tract; I11.0 Hypertensive heart disease with heart failure; K20.90 Esophagitis, unspecified without bleeding; K29.70 Gastritis, unspecified, without bleeding; K44.9 Diaphragmatic hernia without obstruction or gangrene; S91.202A Unspecified open wound of left great toe with damage to nail, initial encounter; R53.81 Other malaise; D18.09 Hemangioma of other sites; E11.69 Type 2 diabetes mellitus with other specified complication; R13.10 Dysphagia, unspecified; E87.70 Fluid overload, unspecified; B96.4 Proteus (mirabilis) (morganii) as the cause of diseases classified elsewhere
CPT/HCPCS: 32555; 36415; 36569; 36600; 43239; 43246; 70450; 71045; 71250; 72125; 74018; 74176; 74177; 74230; 74470; 76604; 76700; 80048; 80053; 80061; 80076; 80202; 81001; 82140; 82550; 82553; 82607; 82746; 82805; 82945; 82948; 83036; 83540; 83605; 83615; 83690; 83735; 83880; 84100; 84132; 84157; 84436; 84443; 84466; 84479; 84484; 85025; 85610; 85730; 87040; 87070; 87071; 87086; 87102; 87116; 87186; 87205; 87206; 88112; 88305; 89051; 92950; 93005; 93970; 94002; 94003; 94640; 94660; 96361; 96372; 96376; 97139; 99251; 99285; J0692; J1160; J1200; J1250; J1650; J1756; J1940; J2001; J2248; J2250; J2370; J2405; J2543; J2997; J3010; J3370; J3480; J7030; J7042; J7050; J7070; J7799; Q9967; U0002

== ENCOUNTER 2021-02-13 17:38 | Emergency (ER) | payer MEDICARE ==
[~2021-02-13] VITALS: Ht 188 cm; Wt 68.0 kg
[~2021-02-13 17:38] MED LIST changes: +ELIQUIS5 MG PO; +ENTRESTO 24 MG1 EACH PO; +FUROSEMIDE40 MG PO; +LEVOTHYROXINE50 MCG PO; +METOPROLOL SUCC25 MG PO; +PANTOPRAZOLE SO40 MG PO; +SERTRALINE HCL50 MG PO
[2021-02-13 19:53] LABS: BASOPHILS # (AUTO) 0.1 (0.0-0.1); BASOPHILS % 0.5 % (0.0-1.0); EOSINOPHILS # (AUTO) 0.1 (0.0-0.4); EOSINOPHILS % 0.7 % (0.0-6.0); HEMOGLOBIN 10.6 g/dL (14.0-18.0); LYMPHOCYTES # (AUTO) 1.2 (1.0-3.2); LYMPHOCYTES % 7.9 % (18.0-39.1); MEAN CORPUSCULAR HEMOGLOBIN 28.6 pg (28-32); MEAN CORPUSCULAR HGB CONC 31.2 g/dL (31-35); MEAN CORPUSCULAR VOLUME 91.9 fL (81-99); MONOCYTES # (AUTO) 0.1 (0.2-0.8); MONOCYTES % 0.7 % (4.4-11.3); NEUTROPHILS # (AUTO) 13.1 (2.1-6.9); NEUTROPHILS % 89.3 % (38.7-80.0); PLATELET COUNT 292 x10e3/uL (140-360); RED CELL DISTRIBUTION WIDTH 17.2 % (11.7-14.4)
[2021-02-13 20:20] LABS: ALBUMIN/GLOBULIN RATIO 0.3 (0.8-2.0); ANION GAP 16.5 mmol/L (8-16); CREATININE, SERUM 0.88 mg/dL (0.72-1.25); POTASSIUM 4.5 mmol/L (3.5-5.1)
[2021-02-13 20:28] LABS: CREATINE KINASE MB 0.4 ng/mL (0-5.0)
[2021-02-13] MEDS ORDERED: SODIUM CHLORIDE 0.9% 1000ML 1,000 ML IV SCH (21:15)
[2021-02-13 21:22] LABS: CLARITY,URINE CLOUDY (CLEAR); COLOR,URINE YELLOW (YELLOW); KETONES,URINE NEGATIVE (NEGATIVE); LEUKOCYTE ESTERASE ,URINE 2+ (NEGATIVE); NITRITE,URINE POSITIVE (NEGATIVE); PROTEIN,URINE DIPSTICK 2+ (NEGATIVE); URINE UROBILINOGEN 0.2 mg/dL (0.2 - 1)
[2021-02-13 21:31] LABS: WBC,URINE (MAN) 21-50 /HPF (0-5)
[2021-02-13 21:32] LABS: BACTERIA,URINE MODERATE /HPF
[2021-02-13] MEDS ORDERED: CEFTRIAXONE 1 GM in SODIUM CHLORIDE 0.9% 50ML 50 ML IV ONE (22:15)
[2021-02-13 22:47] VITALS: BP 101/53
== END 2021-02-13 23:18 ==
LOC: ER 17:54
DX: N39.0 Urinary tract infection, site not specified (principal); I95.9 Hypotension, unspecified; I10 Essential (primary) hypertension; I50.9 Heart failure, unspecified; I48.91 Unspecified atrial fibrillation
CPT/HCPCS: 36415; 71045; 80053; 81001; 82550; 82553; 83880; 84484; 85025; 94640; 99284; J0696; J7030

== ENCOUNTER 2021-03-27 00:55 | Emergency (ER) | payer MEDICARE ==
[~2021-03-27] VITALS: Ht 188 cm; Wt 68.0 kg
== END 2021-03-27 04:00 | disposition home or self-care (01) ==
LOC: ER 01:04
DX: Z43.0 Encounter for attention to tracheostomy (principal); I10 Essential (primary) hypertension; I50.9 Heart failure, unspecified; I48.91 Unspecified atrial fibrillation
CPT/HCPCS: 99282

== ENCOUNTER 2021-04-03 17:03 | Inpatient (IN) | payer MEDICARE ==
[~2021-04-03] VITALS: Ht 193 cm; Wt 68.5 kg
[2021-04-04] VITALS (11 sets, daily range): BP systolic 90–116; BP diastolic 49–71
[2021-04-04] MEDS ORDERED: SODIUM CHLORIDE 0.9% 250ML 250 ML ONE (00:45)
[2021-04-04] MEDS: MEROPENEM 500 MG in SODIUM CHLORIDE 0.9% 50ML 50 ML IV SCH ×4 (00:47→21:04)
[2021-04-04] MEDS ORDERED: ATORVASTATIN CA20 MG GT (02:17)
[2021-04-04] MEDS ORDERED: MIDODRINE HCL5 MG GT (02:17)
[2021-04-04] MEDS ORDERED: ACIDOPHILUS1 EAC1 GT (02:17)
[2021-04-04] MEDS ORDERED: STRESS-C WITH1 EAC1 GT (02:17)
[2021-04-04] MEDS ORDERED: TRAZODONE HCL50 MG GT (02:17)
[2021-04-04] MEDS ORDERED: LEXAPRO10 MG GT (02:17)
[2021-04-04] MEDS ORDERED: FUROSEMIDE40 MG GT (02:17)
[2021-04-04] MEDS ORDERED: ELIQUIS5 MG GT (02:17)
[2021-04-04] MEDS ORDERED: BUSPIRONE HCL5 MG GT (02:17)
[2021-04-04] MEDS ORDERED: LEVOTHYROXINE75 MCG GT (02:17)
[2021-04-04] MEDS ORDERED: ASPIRIN CHEW81 MG GT (02:17)
[2021-04-04] MEDS ORDERED: VITAMIN C500 MG PEG (03:02)
[2021-04-04] MEDS ORDERED: SIMETHICONE80 MG PEG (03:02)
[2021-04-04] MEDS ORDERED: ROBITUSSIN COU118 M4 PEG (03:02)
[2021-04-04] MEDS ORDERED: TOBRAMYCIN300 MG/4 M (03:02)
[2021-04-04] MEDS ORDERED: ASCORBIC ACID500 M2 PEG (03:02)
[2021-04-04] MEDS ORDERED: ALBUTEROL0.63 MG/3 NEB (03:02)
[2021-04-04] MEDS ORDERED: ACETYLCYST200 MG/1 M NEB (03:13)
[2021-04-04] MEDS ORDERED: LIDOCAINE1 EACH TOP (03:13)
[2021-04-04] MEDS ORDERED: TYLENOL325 MG PEG (03:13)
[2021-04-04] MEDS ORDERED: MIRALAX17 GM PEG (03:13)
[2021-04-04 05:03] LABS: BASOPHILS # (AUTO) 0.1 (0.0-0.1); BASOPHILS % 0.7 % (0.0-1.0); EOSINOPHILS # (AUTO) 0.6 (0.0-0.4); EOSINOPHILS % 4.3 % (0.0-6.0); HEMATOCRIT 35.7 % (38.2-49.6); HEMOGLOBIN 11.1 g/dL (14.0-18.0); LYMPHOCYTES # (AUTO) 1.9 (1.0-3.2); MEAN CORPUSCULAR HEMOGLOBIN 28.9 pg (28-32); MEAN CORPUSCULAR HGB CONC 31.1 g/dL (31-35); MONOCYTES # (AUTO) 1.1 (0.2-0.8); MONOCYTES % 7.8 % (4.4-11.3); NEUTROPHILS # (AUTO) 9.9 (2.1-6.9); PLATELET COUNT 281 x10e3/uL (140-360); RED BLOOD COUNT 3.84 x10e6/uL (4.3-5.7); RED CELL DISTRIBUTION WIDTH 15.9 % (11.7-14.4)
[2021-04-04 05:28] LABS: ANION GAP 12.9 mmol/L (8-16); CALCIUM 10.6 mg/dL (8.4-10.2); CREATININE, SERUM 1.35 mg/dL (0.72-1.25); POTASSIUM 3.9 mmol/L (3.5-5.1)
[2021-04-04] MEDS ORDERED: ONDANSETRON HCL INJ 2MG/ML 2ML 2 MG/ML VIAL IV PRN (10:00)
[2021-04-04] MEDS ORDERED: ENOXAPARIN SOD INJ 40 MG/0.4 ML SYR SC SCH (10:00)
[2021-04-04] MEDS ORDERED: ACETAMINOPHEN 325 MG TAB GT PRN (10:00)
[2021-04-04] MEDS ORDERED: ALBUTEROL/IPRATROPIUM 3 ML NEB NEB SCH (11:00)
[2021-04-04] MEDS: APIXABAN 5 MG TABLET GT SCH ×2 (12:36→16:42)
[2021-04-04] MEDS: DEXAMETHASONE SOD PHOS 10 MG/1 ML VIAL IV SCH (12:36)
[2021-04-04] MEDS ORDERED: REMDESIVIR 200MG 200 MG in SODIUM CHLORIDE 0.9% 100 ML IV ONE (16:00)
[2021-04-04] MEDS: ASCORBIC ACID 500 MG TAB PEG SCH (16:42)
[2021-04-04] MEDS: ATORVASTATIN 20 MG TAB GT SCH (21:04)
[2021-04-04] MEDS: ACETAMINOPHEN 325 MG TAB PEG PRN (23:10)
[2021-04-05] VITALS (8 sets, daily range): BP systolic 95–110; BP diastolic 57–67
[2021-04-05] MEDS: LEVOTHYROXINE SODIUM 50 MCG TAB PO SCH (05:12)
[2021-04-05 05:15] LABS: BASOPHILS % 0.4 % (0.0-1.0); EOSINOPHILS % 0.1 % (0.0-6.0); HEMATOCRIT 31.7 % (38.2-49.6); HEMOGLOBIN 9.8 g/dL (14.0-18.0); LYMPHOCYTES # (AUTO) 1.2 (1.0-3.2); MEAN CORPUSCULAR HEMOGLOBIN 28.9 pg (28-32); MEAN CORPUSCULAR HGB CONC 30.9 g/dL (31-35); MEAN CORPUSCULAR VOLUME 93.5 fL (81-99); MONOCYTES # (AUTO) 0.4 (0.2-0.8); MONOCYTES % 3.5 % (4.4-11.3); NEUTROPHILS # (AUTO) 9.3 (2.1-6.9); NEUTROPHILS % 84.1 % (38.7-80.0); PLATELET COUNT 297 x10e3/uL (140-360); RED BLOOD COUNT 3.39 x10e6/uL (4.3-5.7); RED CELL DISTRIBUTION WIDTH 15.2 % (11.7-14.4)
[2021-04-05 05:45] LABS: ANION GAP 11.5 mmol/L (8-16); CREATININE, SERUM 1.37 mg/dL (0.72-1.25); POTASSIUM 4.5 mmol/L (3.5-5.1)
[2021-04-05] MEDS: DEXAMETHASONE SOD PHOS 10 MG/1 ML VIAL IV SCH (09:08)
[2021-04-05] MEDS: ASCORBIC ACID 500 MG TAB PEG SCH ×2 (09:08→16:12)
[2021-04-05] MEDS: AMIODARONE HCL 200 MG TAB PO SCH (09:08)
[2021-04-05] MEDS: MEROPENEM 500 MG in SODIUM CHLORIDE 0.9% 50ML 50 ML IV SCH ×2 (09:08→16:11)
[2021-04-05] MEDS: APIXABAN 5 MG TABLET GT SCH ×2 (09:08→16:12)
[2021-04-05] MEDS: ASPIRIN 81 MG CHEW TAB GT SCH (09:08)
[2021-04-05] MEDS ORDERED: LORAZEPAM INJ 2 MG/ML VIAL IV ONE (11:45)
[2021-04-05] MEDS: REMDESIVIR 100MG 100 MG in SODIUM CHLORIDE 0.9% 100 ML IV SCH (14:04)
[2021-04-05] MEDS ORDERED: DEXTROSE 50% SYRINGE 50 ML IV PRN (15:30)
[2021-04-05] MEDS: INSULIN REGULAR, HUMAN 100 UNIT/1 ML SQ SCH ×2 (16:12→20:41)
[2021-04-05] MEDS: ATORVASTATIN 20 MG TAB GT SCH (20:36)
[2021-04-05] MEDS: ACETAMINOPHEN 325 MG TAB PEG PRN (20:43)
[2021-04-06] VITALS (7 sets, daily range): BP systolic 93–104; BP diastolic 58–65
[2021-04-06] MEDS: MEROPENEM 500 MG in SODIUM CHLORIDE 0.9% 50ML 50 ML IV SCH ×4 (03:13→23:46)
[2021-04-06] MEDS: LEVOTHYROXINE SODIUM 50 MCG TAB PO SCH (06:23)
[2021-04-06 06:40] LABS: BASOPHILS % 0.3 % (0.0-1.0); HEMATOCRIT 31.3 % (38.2-49.6); HEMOGLOBIN 9.8 g/dL (14.0-18.0); LYMPHOCYTES # (AUTO) 1.7 (1.0-3.2); LYMPHOCYTES % 11.2 % (18.0-39.1); MEAN CORPUSCULAR HEMOGLOBIN 28.8 pg (28-32); MEAN CORPUSCULAR HGB CONC 31.3 g/dL (31-35); MEAN CORPUSCULAR VOLUME 92.1 fL (81-99); MONOCYTES # (AUTO) 0.9 (0.2-0.8); MONOCYTES % 5.7 % (4.4-11.3); NEUTROPHILS # (AUTO) 12.1 (2.1-6.9); NEUTROPHILS % 81.9 % (38.7-80.0); PLATELET COUNT 291 x10e3/uL (140-360); RED CELL DISTRIBUTION WIDTH 15.1 % (11.7-14.4)
[2021-04-06 07:24] LABS: THYROID STIMULATING HORMONE 1.028 uIU/mL (0.350-4.940)
[2021-04-06] MEDS: INSULIN REGULAR, HUMAN 100 UNIT/1 ML SQ SCH ×4 (09:08→21:00)
[2021-04-06] MEDS: ASPIRIN 81 MG CHEW TAB GT SCH (09:51)
[2021-04-06] MEDS: APIXABAN 5 MG TABLET GT SCH ×2 (09:51→17:08)
[2021-04-06] MEDS: AMIODARONE HCL 200 MG TAB PO SCH (09:51)
[2021-04-06] MEDS: ASCORBIC ACID 500 MG TAB PEG SCH ×2 (09:51→17:08)
[2021-04-06] MEDS: DEXAMETHASONE SOD PHOS 10 MG/1 ML VIAL IV SCH (09:51)
[2021-04-06 12:14] LABS: CALCIUM 9.4 mg/dL (8.4-10.2); CREATININE, SERUM 1.17 mg/dL (0.72-1.25)
[2021-04-06] MEDS: REMDESIVIR 100MG 100 MG in SODIUM CHLORIDE 0.9% 100 ML IV SCH (13:47)
[2021-04-06] MEDS ORDERED: SODIUM CHLORIDE 0.9% 250ML 250 ML ONE (16:57)
[2021-04-06] MEDS: ATORVASTATIN 20 MG TAB GT SCH (21:12)
[2021-04-07] VITALS (8 sets, daily range): BP systolic 99–114; BP diastolic 57–62
[2021-04-07] MEDS: ACETAMINOPHEN 325 MG TAB PEG PRN ×2 (00:20→21:55)
[2021-04-07] MEDS: LEVOTHYROXINE SODIUM 50 MCG TAB PO SCH (05:22)
[2021-04-07] MEDS: INSULIN REGULAR, HUMAN 100 UNIT/1 ML SQ SCH ×4 (09:04→21:30)
[2021-04-07] MEDS: DEXAMETHASONE SOD PHOS 10 MG/1 ML VIAL IV SCH (09:26)
[2021-04-07] MEDS: MEROPENEM 500 MG in SODIUM CHLORIDE 0.9% 50ML 50 ML IV SCH ×2 (09:26→16:09)
[2021-04-07] MEDS: APIXABAN 5 MG TABLET GT SCH ×2 (09:26→16:51)
[2021-04-07] MEDS: AMIODARONE HCL 200 MG TAB PO SCH (09:26)
[2021-04-07] MEDS: ASCORBIC ACID 500 MG TAB PEG SCH ×2 (09:26→16:51)
[2021-04-07] MEDS: ASPIRIN 81 MG CHEW TAB GT SCH (09:26)
[2021-04-07] MEDS: REMDESIVIR 100MG 100 MG in SODIUM CHLORIDE 0.9% 100 ML IV SCH (14:04)
[2021-04-07] MEDS: ATORVASTATIN 20 MG TAB GT SCH (21:30)
[2021-04-08] VITALS (7 sets, daily range): BP systolic 92–112; BP diastolic 58–89
[2021-04-08] MEDS: MEROPENEM 500 MG in SODIUM CHLORIDE 0.9% 50ML 50 ML IV SCH ×3 (00:12→16:52)
[2021-04-08] MEDS: LEVOTHYROXINE SODIUM 50 MCG TAB PO SCH (05:44)
[2021-04-08 05:56] LABS: BASOPHILS % 0.2 % (0.0-1.0); HEMATOCRIT 32.1 % (38.2-49.6); HEMOGLOBIN 10.4 g/dL (14.0-18.0); LYMPHOCYTES # (AUTO) 1.4 (1.0-3.2); LYMPHOCYTES % 10.4 % (18.0-39.1); MEAN CORPUSCULAR HGB CONC 32.4 g/dL (31-35); MEAN CORPUSCULAR VOLUME 89.4 fL (81-99); MONOCYTES # (AUTO) 0.9 (0.2-0.8); MONOCYTES % 7.2 % (4.4-11.3); NEUTROPHILS # (AUTO) 10.5 (2.1-6.9); NEUTROPHILS % 80.9 % (38.7-80.0); PLATELET COUNT 306 x10e3/uL (140-360); RED BLOOD COUNT 3.59 x10e6/uL (4.3-5.7); RED CELL DISTRIBUTION WIDTH 14.7 % (11.7-14.4)
[2021-04-08 06:32] LABS: ANION GAP 11.4 mmol/L (8-16); CALCIUM 8.2 mg/dL (8.4-10.2); CREATININE, SERUM 0.88 mg/dL (0.72-1.25); POTASSIUM 4.4 mmol/L (3.5-5.1)
[2021-04-08] MEDS: ASCORBIC ACID 500 MG TAB PEG SCH ×2 (08:48→16:52)
[2021-04-08] MEDS: ASPIRIN 81 MG CHEW TAB GT SCH (08:48)
[2021-04-08] MEDS: APIXABAN 5 MG TABLET GT SCH ×2 (08:48→16:52)
[2021-04-08] MEDS: DEXAMETHASONE SOD PHOS 10 MG/1 ML VIAL IV SCH (08:48)
[2021-04-08] MEDS: AMIODARONE HCL 200 MG TAB PO SCH (08:48)
[2021-04-08] MEDS: INSULIN REGULAR, HUMAN 100 UNIT/1 ML SQ SCH ×4 (08:49→22:01)
[2021-04-08] MEDS ORDERED: SODIUM CHLORIDE 0.9% 1000ML 1,000 ML IV SCH (10:45)
[2021-04-08] MEDS: REMDESIVIR 100MG 100 MG in SODIUM CHLORIDE 0.9% 100 ML IV SCH (13:38)
[2021-04-08] MEDS: ATORVASTATIN 20 MG TAB GT SCH (22:00)
[2021-04-08] MEDS: ACETAMINOPHEN 325 MG TAB PEG PRN (22:17)
[2021-04-08] MEDS: ALBUTEROL SULFATE HFA 8GM INHALATION AEROSOL INH PRN (22:18)
[2021-04-09] VITALS (7 sets, daily range): BP systolic 98–124; BP diastolic 54–94
[2021-04-09] MEDS: LEVOTHYROXINE SODIUM 50 MCG TAB PO SCH (06:05)
[2021-04-09] MEDS: INSULIN REGULAR, HUMAN 100 UNIT/1 ML SQ SCH ×4 (08:19→21:34)
[2021-04-09] MEDS: DEXAMETHASONE SOD PHOS 10 MG/1 ML VIAL IV SCH (08:29)
[2021-04-09] MEDS: ASPIRIN 81 MG CHEW TAB GT SCH (08:29)
[2021-04-09] MEDS: APIXABAN 5 MG TABLET GT SCH ×2 (08:29→16:08)
[2021-04-09] MEDS: MEROPENEM 500 MG in SODIUM CHLORIDE 0.9% 50ML 50 ML IV SCH ×4 (08:29→16:08)
[2021-04-09] MEDS: ASCORBIC ACID 500 MG TAB PEG SCH ×2 (08:30→16:08)
[2021-04-09] MEDS: AMIODARONE HCL 200 MG TAB PO SCH (08:30)
[2021-04-09] MEDS: ATORVASTATIN 20 MG TAB GT SCH (20:55)
[2021-04-09] MEDS: ALBUTEROL SULFATE HFA 8GM INHALATION AEROSOL INH PRN (21:34)
[2021-04-10] MEDS: MEROPENEM 500 MG in SODIUM CHLORIDE 0.9% 50ML 50 ML IV SCH ×3 (00:20→16:36)
[2021-04-10] MEDS: LEVOTHYROXINE SODIUM 50 MCG TAB PO SCH (05:16)
[2021-04-10 06:01] LABS: BASOPHILS % 0.2 % (0.0-1.0); HEMATOCRIT 33.3 % (38.2-49.6); HEMOGLOBIN 10.8 g/dL (14.0-18.0); LYMPHOCYTES # (AUTO) 1.2 (1.0-3.2); LYMPHOCYTES % 9.7 % (18.0-39.1); MEAN CORPUSCULAR HEMOGLOBIN 29.2 pg (28-32); MEAN CORPUSCULAR HGB CONC 32.4 g/dL (31-35); MONOCYTES % 7.7 % (4.4-11.3); NEUTROPHILS # (AUTO) 10.2 (2.1-6.9); NEUTROPHILS % 80.1 % (38.7-80.0); PLATELET COUNT 335 x10e3/uL (140-360)
[2021-04-10 06:37] LABS: ANION GAP 10.6 mmol/L (8-16); CALCIUM 7.8 mg/dL (8.4-10.2); CREATININE, SERUM 0.76 mg/dL (0.72-1.25); POTASSIUM 4.6 mmol/L (3.5-5.1)
[2021-04-10 07:49] VITALS: BP 108/61
[2021-04-10] MEDS: APIXABAN 5 MG TABLET GT SCH ×2 (09:16→16:36)
[2021-04-10] MEDS: ASPIRIN 81 MG CHEW TAB GT SCH (09:16)
[2021-04-10] MEDS: AMIODARONE HCL 200 MG TAB PO SCH (09:17)
[2021-04-10] MEDS: ASCORBIC ACID 500 MG TAB PEG SCH ×2 (09:17→16:36)
[2021-04-10] MEDS: DEXAMETHASONE SOD PHOS 10 MG/1 ML VIAL IV SCH (09:17)
[2021-04-10] MEDS: INSULIN REGULAR, HUMAN 100 UNIT/1 ML SQ SCH ×4 (09:33→21:00)
[2021-04-10 10:42] VITALS: BP 108/61
[2021-04-10 12:03] VITALS: BP 93/77
[2021-04-10 16:17] VITALS: BP 99/56
[2021-04-10] MEDS ORDERED: MEROPENEM 500 MG VIAL ONE (16:26)
[2021-04-10 20:00] VITALS: BP 99/56
[2021-04-10] MEDS: ATORVASTATIN 20 MG TAB GT SCH (21:36)
[2021-04-11] MEDS: MEROPENEM 500 MG in SODIUM CHLORIDE 0.9% 50ML 50 ML IV SCH ×3 (00:09→15:43)
[2021-04-11] MEDS: LEVOTHYROXINE SODIUM 50 MCG TAB PO SCH (05:16)
[2021-04-11 05:43] VITALS: BP 101/53
[2021-04-11 08:37] VITALS: BP 110/56
[2021-04-11] MEDS: DEXAMETHASONE SOD PHOS 10 MG/1 ML VIAL IV SCH (08:48)
[2021-04-11] MEDS: ASCORBIC ACID 500 MG TAB PEG SCH ×2 (08:48→17:01)
[2021-04-11] MEDS: ASPIRIN 81 MG CHEW TAB GT SCH (08:48)
[2021-04-11] MEDS: APIXABAN 5 MG TABLET GT SCH ×2 (08:48→17:01)
[2021-04-11] MEDS: AMIODARONE HCL 200 MG TAB PO SCH (08:49)
[2021-04-11 09:01] VITALS: BP 110/56
[2021-04-11] MEDS: INSULIN REGULAR, HUMAN 100 UNIT/1 ML SQ SCH ×3 (09:14→17:02)
[2021-04-11 11:51] VITALS: BP 103/64
[2021-04-11] MEDS ORDERED: ONDANSETRON HCL 4 MG ORAL DISINTEGRATING TAB PO PRN (16:15)
[2021-04-11 16:21] VITALS: BP 96/85
[2021-04-11 19:39] VITALS: BP 103/57
== END 2021-04-11 20:26 | DRG 177 ==
LOC: MED/SURG2 23:22 → MED/SURG3 04-04 04:38
PROVIDERS: ADMIT Internal Medicine; ATTEND Internal Medicine
PROC: 8E0ZXY6 Isolation (ICD-10-PCS; principal; 2021-04-03)
PROC: XW033E5 Introduction of Remdesivir Anti-infective into Peripheral Vein, Percutaneous Approach, New Technology Group 5 (ICD-10-PCS; 2021-04-04)
DX: U07.1 COVID-19 (principal); J12.82 Pneumonia due to coronavirus disease 2019; J69.0 Pneumonitis due to inhalation of food and vomit; J96.20 Acute and chronic respiratory failure, unspecified whether with hypoxia or hypercapnia; I50.22 Chronic systolic (congestive) heart failure; E44.0 Moderate protein-calorie malnutrition; Z68.1 Body mass index [BMI] 19.9 or less, adult; J95.02 Infection of tracheostomy stoma; I11.0 Hypertensive heart disease with heart failure; I48.91 Unspecified atrial fibrillation; Z79.01 Long term (current) use of anticoagulants; R13.10 Dysphagia, unspecified; D64.9 Anemia, unspecified; Z86.718 Personal history of other venous thrombosis and embolism; B96.5 Pseudomonas (aeruginosa) (mallei) (pseudomallei) as the cause of diseases classified elsewhere; E78.00 Pure hypercholesterolemia, unspecified
CPT/HCPCS: 36415; 71045; 74230; 80048; 82948; 84443; 85025; 94640; 96360; 97139; 99251; J1100; J1817; J2060; J2185; J7030; J7050; U0002